=== PATIENT | male | born 1940 | race Asian ===

== ENCOUNTER → 2018-01-07 10:30 | Outpatient (CLI) | payer MEDICARE, SELFPAY | PROVIDERS: Family Provider Family Medicine; PCP Family Medicine; Referring Provider Family Medicine; Visit Provider Family Medicine | DX: R42 Dizziness and giddiness (principal); R00.1 Bradycardia, unspecified | CPT/HCPCS: 93225; 93226 ==

== ENCOUNTER → 2020-05-31 15:29 | Outpatient (CLI) | payer MEDICARE, SELFPAY ==
--- NOTE | 2020-05-31 15:34 | US_ITS ---
STUDY: SUPERFICIAL ULTRASOUND - RIGHT PAROTID GLAND REASON FOR EXAM: Male, 80 years old. MASS OF PAROTID GLAND -- LOCALIZED SWELLING,MASS,LUMP,NECK THE PATIENT AND DR CANNOT PALP THE MASS TECHNIQUE: A superficial ultrasound was performed with real-time and static carrion-scale imaging. COMPARISON: None. FINDINGS: Multiple longitudinal and transverse ultrasound images the right parotid gland demonstrate a 0.4 x 1.3 cm oval hypoechoic mass with some central increased echogenicity within the periphery of the parotid gland consistent with a normal lymph node. US/Head/Neck Soft Tissue IMPRESSION: Normal ultrasound of the right parotid gland with a normal lymph node. Electronically Signed: Lance Brasher MD at 8:17 EDT Tel , Service support ,
== END ==
PROVIDERS: PCP Family Medicine; Referring Provider Otolaryngology; Visit Provider Otolaryngology
DX: R22.1 Localized swelling, mass and lump, neck (principal)
CPT/HCPCS: 76536

== ENCOUNTER 2023-01-20 03:53 | Inpatient (IN) | payer MEDICARE, SELFPAY ==
[2023-01-20] VITALS (24 sets, daily range): BP systolic 90–200; BP diastolic 69–131; PULSE 91–152; RESP 12–35; TEMP 35.9–36.8; O2SAT 86–99; BMI 25.1
--- NOTE | 2023-01-20 04:03 | EKG12_ITS ---
Test Reason : DYSRHYTHMIA Blood Pressure : / mmHG Vent. Rate : 118 BPM Atrial Rate : 118 BPM P-R Int : 152 ms QRS Dur : 074 ms QT Int : 290 ms P-R-T Axes : 082 073 075 degrees QTc Int : 406 ms Sinus tachycardia Possible Left atrial enlargement Anteroseptal infarct , age undetermined Abnormal ECG Confirmed by DERREK RESENDIZ, DEBO ([id number]), editor greeting card MONSERRAT ALDANA ([id number]) on 01/23/2023 6:17:16 AM Referred By: JASON Confirmed By:TRISTAN ANGLIN MD
--- NOTE | 2023-01-20 04:13 | EDS_ITS ---
HPI History of Present Illness Chief Complaint: Shortness of Breath Narrative Narrative: 82-year-old male past medical history of dementia presents with his because of shortness of breath and just a little bit ago. They deny that he has had any fever or chills, no cough. He felt like he could not breathe. No chest pain or leg swelling. He reportedly has past medical history of COPD. However, he does not wear oxygen at home. Initially, they declined third-libertarian lang interpreter, but then were acceptable to it. Patient denies any significant past medical history except for hypothyroidism. They also removed tumors from his chest and were unsure if he had cancer. PFSH PFSH Allergy/AdvReac Type Severity Reaction Status Date / Time No Known Allergies Allergy Verified 01/20/23 04:28 Social History Smoking Status: Never smoker ROS ROS ED ROS Narrative Constitutional: No fever, no chills. HEENT: No sore throat. No neck pain. No loss of vision. No rhinorrhea. Cardiovascular: No chest pain. No palpitations. No pedal edema. Respiratory: No cough, positive shortness of breath. Abdominal: No abdominal pain. No nausea. No vomiting. Genitourinary: No dysuria. No hematuria. Musculoskeletal: No myalgias. No arthralgias. Neurologic: No headaches. No dizziness. No lightheadedness. Skin: No rash. No change in color. Psychiatric: No depression. No anxiety. EXAM Physical Exam Narrative Exam Narrative: Afebrile. Vital signs noted. HEENT: Normocephalic. Atraumatic. PERRL, EOMI. Neck soft and supple. No point tenderness or step off. Cardiovascular: Regular rate and rhythm. No murmurs, rubs, or gallops appreciated. Respiratory: No tachypnea. Lungs clear to auscultation bilaterally. Decreased breath sounds bilateral bases. Questionable rales bilateral bases. Gastrointestinal: Abdomen soft, nontender, with normoactive bowel sounds. No rebound or guarding. Neurological: Awake. Alert. Nonfocal, nonlateralizing. Skin: No rash. Normal color. No pallor. Musculoskeletal: No pedal edema. Full range of motion extremities. Const Vital Signs: 01/20/23 03:54 01/20/23 04:07 01/20/23 04:27 Temperature 98.1 F Temperature Source Temporal Pulse Rate 125 H 110 H Respiratory Rate 35 H 24 H Respiratory Effort Respiratory Depth Respiratory Pattern Blood Pressure 200/131 H 148/99 H Blood Pressure Mean 154 115 Pulse Ox 86 95 94 Oxygen Delivery Method Room Air Room Air Room Air 01/20/23 04:27 01/20/23 04:29 01/20/23 05:46 Temperature Temperature Source Pulse Rate 112 H 109 H Respiratory Rate 22 H 16 Respiratory Effort Short of Breath Labored Respiratory Depth Shallow Respiratory Pattern Tachypnea Tachypnea Blood Pressure 148/89 H Blood Pressure Mean 108 Pulse Ox 96 Oxygen Delivery Method Room Air MDM MDM MDM Narrative Medical decision making narrative: In the differential diagnosis is COPD exacerbation versus CHF versus combination of both. Also in the differential is pneumonia or pneumothorax, but the history and physical does not necessarily support these diagnoses. Patient has elevated blood pressure and is tachycardic. He may have a pulmonary embolism or hypertensive urgency. Initially, it was reported that he was 86% on room air. He was placed on 2 L nasal cannula oxygen by respiratory therapy. They state that he was satting 99%, so they turned off his oxygen to ensure that he was not hypoxic, and obtained a blood gas. EKG was obtained and interpreted by myself independently as sinus tachycardia 118 bpm without ectopy or acute ST changes. No STEMI. No reciprocal changes. Patient is agreed to third-libertarian lang interpreter. The speak Turkish. Through the third libertarian commercial litigation associate, they state that his shortness of breath has been ongoing for the last 3 hours. He denied any chest pain, nausea, vomiting, or diaphoresis associated with this. Upon repeat examination, he states he feels improved. His initial blood pressure was elevated, and I had ordered hydralazine, however his repeat blood pressure is considerably lower, in the 140s systolic so the hydralazine was held. I reviewed his laboratory work and WBC count is normal at 10 with hemoglobin slightly hemoconcentrated at 16.7, hematocrit 53. Platelet count normal at 182. His sodium is normal at 141 with potassium 3.6, chloride slightly elevated at 109. He has an elevated creatinine of 1.6 with a BUN of 13. There is no prior with which to compare. Of significance is his lactic acid which is elevated at 2.3 which may be secondary to mild dehydration. Additionally, his troponin is elevated at 204. While I am unsure if this is secondary to his elevated creatinine, given his shortness of breath, and a BNP slightly elevated at 105, he will be treated as an NSTEMI. I will repeat his troponin in 2 hours and he will be given aspirin and started on heparin including bolus. His D-dimer is still pending. His chest x-ray in 1 view shows subtle opacities bilaterally in the bases. I do not think this is really a pneumonia that requires antibiotics because he has not had fever or cough, he does not have a leukocytosis. He may be more subtle CHF. I will refrain from antibiotics. He did receive a DuoNeb aerosolized treatment. He is resting comfortably and his pulse ox on room air is 94%. I received a call from the laboratory and his D-dimer is elevated at 1.21. As this is above the age cutoff for this 82-year-old gentleman, CTA will be obtained for pulmonary embolism. He was already started on heparin. He may have right heart strain from a large PE causing a rise in his troponin as well. ABG was obtained and reviewed, he has a pH of 7.38 with a pCO2 of 42.6 and pO2 of 65.3. Once again, concern would be for pulmonary embolism. CTA of the chest will be obtained and report reviewed. In review of the CTA of the chest, there are large bilateral pleural effusions. I reviewed the radiology report and they also comment on mild bibasilar airspace disease which may be atelectasis versus infectious. There is no evidence of pulmonary embolism. Once again, is not showing any clinical signs of pneumonia. I will defer antibiotics to the inpatient team. Patient will be discussed with Dr. Zuniga for admission. He requested that I speak with cardiology. I had informed Dr. Davidson and with cardiology of the patient's need for admission, elevated troponin and creatinine. Patient is in stable condition. History & Record Review Discussion w/independent historian: Patient and Family () Additional record(s) reviewed:: No prior records Lab Data Attestation: I reviewed the patient's lab results. Labs: Laboratory Results - last 24 hr 01/20/23 01/20/23 01/20/23 04:01 04:10 04:43 WBC 10.0 RBC 5.54 Hgb 16.7 H Hct 53.0 MCV 95.7 H MCH 30.1 MCHC 31.5 L RDW Std Deviation 45.0 H RDW Coeff of Reece 12.9 Plt Count 182 MPV 11.1 Immature Gran % (Auto) 0.200 Neut % (Auto) 51.7 Lymph % (Auto) 31.6 [place] % (Auto) 8.8 Eos % (Auto) 7.1 H Baso % (Auto) 0.6 Absolute Neuts (auto) 5.2 Absolute Lymphs (auto) 3.15 Nucleated RBC % 0 PT 13.9 INR 1.1 APTT 31.3 D-Dimer Quant (PE/DVT) Cancelled 1.21 H* Sodium 141 Potassium 3.6 Chloride 109 H Carbon Dioxide 24.0 Anion Gap 8 BUN 13 Creatinine 1.60 H Estim Creat Clear Calc 26.54 Est GFR (MDRD) Af Amer 53 L Est GFR (MDRD) Non-Af 44 L BUN/Creatinine Ratio 8.1 L Glucose 129 H Lactic Acid 2.3 H* Calcium 8.2 L Troponin I High Sens 204 H* B-Natriuretic Peptide 105.9 H ABG Data ABG results: ABG 01/20/23 04:19 Specimen Type ART Sample Site R Radial pH 7.38 Bicarbonate Actual 25.2 Total CO2 27 Base Excess 0 O2 Saturation 92 L ABG pCO2 42.6 ABG pO2 65 L Abdi Test Positive O2 Delivery Device Room Air Vent Mode Not entered Radiography Diagnostic Testing: Clinical Impression(s) from Imaging Studies Chest X-Ray 01/20/23 04:20 IMPRESSION: Subtle heterogeneous opacities involving the lower lungs bilaterally. Correlate clinically to exclude infectious etiology. Electronically Signed: Leonel Beach MD at 5:03 EST , Chest CTA 01/20/23 05:37 IMPRESSION: 1. Large pleural effusions and mild bibasilar air space disease. Findings may indicate atelectasis or infection. 2. No evidence of pulmonary embolism. Electronically Signed: Gavin Hong MD at 6:08 EST , Management Discussion w/another healthcare provider: Hospitalist Discharge Plan Dx/Rx/DC Orders Clinical Impression: Acute kidney injury, Non-ST elevation AR (NSTEMI), Elevated d-dimer, Pleural effusion, bilateral, Lactic acidosis Disposition Disposition: Acute Care [facility]
--- NOTE | 2023-01-20 04:20 | RAD_ITS ---
EXAM: XR CHEST, 1 VIEW CLINICAL INDICATION: Shortness of breath TECHNIQUE: Frontal view of the chest. COMPARISON: No relevant prior studies available. FINDINGS: LUNGS AND PLEURAL SPACES: Subtle heterogeneous opacities involving the lower lungs bilaterally. Small pleural effusions versus pleural parenchymal scarring. No pneumothorax. HEART: CABG postoperative changes with intact sternotomy wires. No cardiomegaly. MEDIASTINUM: No mediastinal or hilar enlargement. BONES/JOINTS: Degenerative changes of the glenohumeral joints, acromioclavicular joints, and spine. SOFT TISSUES: Unremarkable. RAD/Chest 1 View (Portable) IMPRESSION: Subtle heterogeneous opacities involving the lower lungs bilaterally. Correlate clinically to exclude infectious etiology. Electronically Signed: Leonel Beach MD at 5:03 EST ,
[2023-01-20 04:23] LABS: Allen Test Positive; Base Excess 0 mmol/L (-2 to +2); Bicarbonate 25.2 mmol/L (22-26); Blood Gas Specimen Type ART; Mode Not entered; O2 Delivery Device Room Air; PO2 65 mmHG (75-100); SITE R Radial; SO2 92 % (95-99); Total Carbon Dioxide 27 mmol/L; pCO2 42.6 mmHg (35-45); pH 7.38 (7.35-7.45)
[2023-01-20 04:25] LABS: Absolute Lymphocyte Count 3.15 X10^3/uL (0.83-4.51); Absolute Neutrophil Count 5.2 X10^3/uL (2.0-7.7); Basophil# 0.06 X10^3/uL; Basophil% 0.6 % (0-1); Eosinophil# 0.71 X10^3/uL; Eosinophils% 7.1 % (0-5); Hemoglobin 16.7 g/dL (13.0-16.5); Lymphocyte # 3.15 X10^3/ul (0.83-4.51); Lymphocyte % 31.6 % (19-41); Mean Corp Hgb Conc 31.5 g/dL (32-36); Mean Corpuscular Hgb 30.1 pg (27.0-32.0); Mean Corpuscular Volume 95.7 fL (80-94); Mean Platelet Vol. 11.1 fl (6.2-12.0); Monocyte# 0.88 X10^3/uL; Monocyte% 8.8 % (0-10); NRBC Flagged by Analyzer 0 % (0-5); Neutrophil # 5.16 X10^3/uL (2.7-7.7); Neutrophil % 51.7 % (47-70); Platelet Count 182 K/mm3 (150-450); RBC Distribution Width CV 12.9 % (11.6-14.6); Red Blood Count 5.54 M/mm3 (4.6-6.2)
[2023-01-20] MEDS: Ipratropium/Albuterol Sulfate 3 ML AMPUL.NEB INHALATION (04:26)
[2023-01-20 04:55] LABS: Anion Gap 8 (5-15); BNP,B-Type NATRIURETIC PEPTIDE 105.9 pg/mL (0-100); BUN 13 mg/dL (7-18); BUN/Creat Ratio 8.1 RATIO (10-20); Calcium,Total 8.2 mg/dL (8.5-10.1); Chloride 109 mmol/L (98-107); EST Glomerular Filtration Rate 44 mL/min (>60); Est Glom Filt Rate - Afr Amer 53 mL/min (>60); Estimated Creatinine Clearance 26.54 ml/min; Glucose 129 mg/dL (74-106); Potassium 3.6 mmol/L (3.5-5.1); Sodium Level 141 mmol/L (136-145); Troponin-I HS 204 pg/mL (3.0-78.0)
[2023-01-20 04:55] LABS: Lactic Acid 2.3 mmol/L (0.4-1.9)
[2023-01-20] MEDS: Heparin Injection (Vial) 5,000 UNIT/ML VIAL 4000 UNIT IV (05:16)
[2023-01-20] MEDS: Aspirin 81 MG TAB.CHEW 324 MG PO (05:16)
[2023-01-20] MEDS: HEPARIN/D5w 25,000 UNITS 25,000 UNITS/250 ML IV.SOLN. 8 UNITS CONT INF (05:16)
[2023-01-20 05:18] LABS: D-Dimer Quantitative (DVT/PE) 1.21 FEU/ug/m (0.27-0.49)
[2023-01-20 05:20] LABS: International Normalized Ratio 1.1; Prothrombin Time (Protime)PT. 13.9 SECONDS (11.7-14.9)
[2023-01-20 05:21] LABS: Partial Thromboplast Time 31.3 Seconds (24.1-36.2)
--- NOTE | 2023-01-20 05:37 | CT_ITS ---
EXAM: CT ANGIOGRAPHY CHEST WITHOUT AND WITH INTRAVENOUS CONTRAST CLINICAL INDICATION: Elevated D-dimer TECHNIQUE: Helically acquired angiography images were obtained of the chest without and with intravenous contrast. This CT exam was performed using one or more of the following dose reduction techniques: automated exposure control, adjustment of the mA and/or kV according to patient size, and/or use of iterative reconstruction technique. MIP reconstructed images were created and reviewed. CONTRAST: IV 100mL [id number]-370 RADIATION DOSE: CTDIvol = 14.81 mGy, DLP = 386.65 mGy-cm COMPARISON: No relevant prior studies available. FINDINGS: PULMONARY ARTERIES: Unremarkable. Normal in caliber. No evidence of pulmonary embolism. AORTA: Unremarkable. No aortic aneurysm or dissection. GREAT VESSELS OF AORTIC ARCH: Unremarkable. Normal in caliber. No evidence of dissection. LUNGS AND PLEURAL SPACES: Large pleural effusions and mild bibasilar air space disease. No mass. HEART: Coronary artery calcifications. Heart size is normal. No pericardial effusion. MEDIASTINUM: Surgical changes of the mediastinum. No mediastinal or hilar adenopathy. Esophagus is unremarkable. No hiatal hernia. THYROID: Unremarkable. No thyroid lesions. BONES/JOINTS: Diffuse degenerative changes of the spine. No suspicious lytic or blastic abnormality. CT/CTA Chest W/WO Contrast IMPRESSION: 1. Large pleural effusions and mild bibasilar air space disease. Findings may indicate atelectasis or infection. 2. No evidence of pulmonary embolism. Electronically Signed: Gavin Hong MD at 6:08 EST ,
[2023-01-20] MEDS: 0.9% Normal Saline (1000mL) 1,000 ML 999 ML IV (05:45)
[2023-01-20] MEDS: Furosemide 40 MG/4 ML Vial IV (06:40)
--- NOTE | 2023-01-20 06:50 | RAD_ITS ---
EXAM: XR CHEST, 1 VIEW CLINICAL INDICATION: Acute SOB TECHNIQUE: Frontal view of the chest. COMPARISON: Single view chest 01/20/2023 FINDINGS: LUNGS AND PLEURAL SPACES: Mild bibasilar airspace disease and small pleural effusions. No pneumothorax. HEART: Unremarkable. Cardiac silhouette not enlarged. MEDIASTINUM: Surgical changes of the mediastinum. BONES/JOINTS: Degenerative changes of the spine and shoulders. No acute fracture. SOFT TISSUES: Unremarkable. RAD/Chest 1 View (Portable) IMPRESSION: Mild bibasilar airspace disease and small pleural effusions. Findings may indicate atelectasis or pneumonia. Electronically Signed: Gavin Hong MD at 0:25 EST ,
--- NOTE | 2023-01-20 06:53 | PCM.HP.STD ---
HPI - General General Date of Service: 01/20/23 HPI Narrative [place], is a 82 M who presents with acute onset shortness of breath for the last 3 hours, and had severely elevated blood pressure at the time of presentation. His systolic pressures were more than 200. Without treatment patient his blood pressure improved and there has been improvement in his shortness of breath with nebulization. CT scan showed bilateral pleural effusion. He is being admitted for further evaluation of the new onset pleural effusion and acute shortness of breath with suspected NSTEMI. His hemoglobin is 16.5, D-dimer is elevated 1.2, ABGs pO2 was 65, creatinine 1.6, lactic acid 2.3, troponin 204 acute onset shortness of breath Acute event in the ED He was started on 1 L normal saline bolus in the ED and during the infusion had a similar episode of worsening shortness of breath with acute desaturation bilateral Rales and crepitations. His blood pressure at the time was 180/110 mmHg. We started him on BiPAP respiration, gave IV Lasix and stop the infusions. With this his saturation has improved [facility] Medical History unable to obtain unable to obtain Allergy/AdvReac Type Severity Reaction Status Date / Time No Known Allergies Allergy Verified 01/20/23 04:28 Social History Smoking Status: Never smoker ROS Review of Systems ROS Unobtainable: other Details: Acute shortness of breath Vital Signs Vital Signs Vital Signs: 01/20/23 03:54 01/20/23 04:07 01/20/23 04:27 Temperature 98.1 F Temperature Source Temporal Pulse Rate 125 H 110 H Respiratory Rate 35 H 24 H Respiratory Effort Respiratory Depth Respiratory Pattern Blood Pressure 200/131 H 148/99 H Blood Pressure Mean 154 115 Pulse Ox 86 95 94 Oxygen Delivery Method Room Air Room Air Room Air 01/20/23 04:27 01/20/23 04:29 01/20/23 05:46 Temperature Temperature Source Pulse Rate 112 H 109 H Respiratory Rate 22 H 16 Respiratory Effort Short of Breath Labored Respiratory Depth Shallow Respiratory Pattern Tachypnea Tachypnea Blood Pressure 148/89 H Blood Pressure Mean 108 Pulse Ox 96 Oxygen Delivery Method Room Air Weight Weight: 137 lb 9.095 oz Body Mass Index (BMI) 25.1 Physical Exam Const General Appearance: cooperative HEENT normocephalic Resp Resp Narrative: Breathing was labored, loud audible Rales present Auscultation: crackles diffuse and rales diffuse Cardio Cardio Narrative: Tachycardia Extremity normal to inspection and no clubbing, cyanosis or edema Neuro oriented x3 Results Medical Records Data Attestation: I reviewed the patient's medical records Lab / Micro Data Attestation: I reviewed the patient's lab results. Lab results narrative: Features suspicious for chronic hypoxia/COPD with hemoglobin of 16.7, possible allergy with eosinophils of 7.1%. Reason for creatinine 1.6 is not known as BUN is not elevated, likely hypertensive etiology. Hemoglobin 16.7, WBC 10.0, with 7.1% eosinophils, creatinine 1.6 with BUN of 13, troponin high-sensitivity 204, NT proBNP 105.9, lactic acid 2.3, D-dimer 1.21 01/20/23 04:01 01/20/23 04:01 Labs: Laboratory Results - last 24 hr 01/20/23 04:01: WBC 10.0, RBC 5.54, Hgb 16.7 H, Hct 53.0, MCV 95.7 H, MCH 30.1, MCHC 31.5 L, RDW Std Deviation 45.0 H, RDW Coeff of Reece 12.9, Plt Count 182, MPV 11.1, Immature Gran % (Auto) 0.200, Neut % (Auto) 51.7, Lymph % (Auto) 31.6, [place] % (Auto) 8.8, Eos % (Auto) 7.1 H, Baso % (Auto) 0.6, Absolute Neuts (auto) 5.2, Absolute Lymphs (auto) 3.15, Nucleated RBC % 0, D-Dimer Quant (PE/DVT) Cancelled, Sodium 141, Potassium 3.6, Chloride 109 H, Carbon Dioxide 24.0, Anion Gap 8, BUN 13, Creatinine 1.60 H, Estim Creat Clear Calc 26.54, Est GFR (MDRD) Af Amer 53 L, Est GFR (MDRD) Non-Af 44 L, BUN/Creatinine Ratio 8.1 L, Glucose 129 H, Calcium 8.2 L, Troponin I High Sens 204 H*, B-Natriuretic Peptide 105.9 H 01/20/23 04:10: Lactic Acid 2.3 H* 01/20/23 04:43: PT 13.9, INR 1.1, APTT 31.3, D-Dimer Quant (PE/DVT) 1.21 H* Micro: Microbiology 01/20/23 04:00 Nasal Secretion SARS-CoV-2 & FLU Antigen (Rapid) - Final ABG Data ABG results: ABG 01/20/23 04:19 Specimen Type ART Sample Site R Radial pH 7.38 Bicarbonate Actual 25.2 Total CO2 27 Base Excess 0 O2 Saturation 92 L ABG pCO2 42.6 ABG pO2 65 L Abdi Test Positive O2 Delivery Device Room Air Vent Mode Not entered Imagaing Radiology Impression Chest X-Ray 01/20/23 04:20 IMPRESSION: Subtle heterogeneous opacities involving the lower lungs bilaterally. Correlate clinically to exclude infectious etiology. Electronically Signed: Leonel Beach MD at 5:03 EST , Chest CTA 01/20/23 05:37 IMPRESSION: 1. Large pleural effusions and mild bibasilar air space disease. Findings may indicate atelectasis or infection. 2. No evidence of pulmonary embolism. Electronically Signed: Gavin Hong MD at 6:08 EST , Assessment & Plan Assessment/Plan (1) Non-ST elevation [place] (NSTEMI): PLAN: Plan 1. Acute on chronic respiratory failure: Presentation consistent with hypertensive emergency with presenting blood pressures of systolics greater than 200 and episodes consistent with flash pulmonary edema. The decompensation episode in the ED responded to by PAP and Lasix therapy. Possibly there is underlying hypertensive heart disease now presenting with ADHF also leading to the pleural effusion seen on CT scan 2. NSTEMI: Elevated troponin levels could be due to hypertensive emergency, no chest pain but the presentation with flash pulmonary edema could be an anginal equivalent. Cardiology has been informed about this patient and will see him today. 3. ADAN on CKD: Possibly hypertensive nephrosclerosis, BUN is not elevated, less likely to be related to prerenal-ADAN. Would avoid further fluid therapy without proper monitoring given his recent episode of decompensation in the ED.
--- NOTE | 2023-01-20 07:20 | CPS ---
ED RN called this RT stating pt wanted the bipap off. Rn took bipap off at this time
--- NOTE | 2023-01-20 08:13 | ECHOCS_ITS ---
Reason For Study: Dyspnea/SOB Procedure This was a 2D Doppler, Color Flow transthoracic echocardiogram. Contrast injection was performed. Exam performed portable in ICU/CCU. Left Ventricle Mildly dilated left ventricle. Severe LV systolic dysfunction with apical akinesis, mid to distal anterior and anterior septal akinesis. Mid to distal inferior septal akinesis. Basal anterior severely hypokinetic. Estimated EF 20%. Stage 1 diastolic dysfunction. Right Ventricle Normal right ventricle. Atria The left and right atria are normal. Mitral Valve Mild (1+) mitral valve insufficiency. Tricuspid Valve Trivial tricuspid valve insufficiency. Normal pulmonary artery pressure. Aortic Valve Trisinus/trileaflet aortic valve. Mild (1+) aortic valve insufficiency. Pulmonic Valve The pulmonic valve is not well visualized. Great Vessels Normal sized aortic root. Pericardium/Pleural Trivial pericardial effusion. Moderate size left pleural effusion. Medication Diluted definity 2ml given slow IV push to enhance endocardial definition. MMode/2D Measurements & Calculations LVIDd: 5.8 cm IVSd: 0.85 cm Ao root diam: 2.6 cm LVIDs: 4.0 cm LVPWd: 0.75 cm RVDd: 2.9 cm FS: 31.2 % LAV(MOD-bp): 24.1 ml LVAd ap4: 24.5 cm2 SV(MOD-sp4): 14.1 ml LAV(MOD-bp) Indexed: 14.8 ml/m2 LVLd ap4: 7.2 cm LAV(MOD-sp2): 22.8 ml EDV(MOD-sp4): 68.0 ml LAV(MOD-sp4): 23.5 ml EDV(sp4-el): 70.9 ml LVAs ap4: 21.4 cm2 LVLs ap4: 6.8 cm ESV(MOD-sp4): 53.9 ml ESV(sp4-el): 57.0 ml EF(MOD-sp4): 20.7 % EF(sp4-el): 19.6 % SV(sp4-el): 13.9 ml LA A4 area: 11.8 cm2 LA dimension(2D): 2.9 cm RA A4 area: 7.4 cm2 TAPSE: 1.5 cm Time Measurements MV dec time: 0.20 sec Doppler Measurements & Calculations MV E max ariel: 65.2 cm/sec Lat Peak E' Ariel: 4.5 cm/sec Med Peak E' Ariel: 5.6 cm/sec MV A max ariel: 84.1 cm/sec E/E' lat: 14.6 E/E' med: 11.6 MV E/A: 0.78 MV dec slope: 326.2 cm/sec2 Ao V2 max: 109.9 cm/sec LV V1 max: 86.7 cm/sec Ao max P.8 mmHg LV V1 max P.0 mmHg Ao V2 mean: 78.5 cm/sec LV V1 mean P.7 mmHg Ao mean P.8 mmHg LV V1 mean: 59.6 cm/sec Ao V2 VTI: 20.3 cm LV V1 VTI: 15.5 cm AV (velocity ratio): 0.76 PA V2 max: 92.1 cm/sec TR max ariel: 232.2 cm/sec TR max P.6 mmHg ECHO/Echo Complete W/ Contrast Interpretation Summary Mildly dilated left ventricle. Stage 1 diastolic dysfunction. Severe LV systolic dysfunction with apical akinesis, mid to distal anterior and anterior septal akinesis. Mid to distal inferior septal akinesis. Basal anterior severely hypok inetic. Estimated EF 20-25%. Mild (1+) mitral valve insufficiency. Mild (1+) aortic valve insufficiency. Ordering Physician: Serg Bazzi Referring Physician: Mo Lozano Performed By: Sandra Duarte, PATRICIA, RVT
[2023-01-20 08:20] LABS: Reflex Lactate? Y
[2023-01-20 08:51] LABS: Troponin-I HS 209 pg/mL (3.0-78.0)
[2023-01-20 09:40] LABS: Lactic Acid 3.5 mmol/L (0.4-1.9)
[2023-01-20 12:34] LABS: M R Staph aureus DNA By PCR Negative (Negative); Probe Check PASS; Specimen Processing Control PASS
[2023-01-20 13:06] LABS: Partial Thromboplast Time 124.1 Seconds (24.1-36.2)
--- NOTE | 2023-01-20 13:25 | CASEMGMT ---
KIMMY CARBALLO Assessment: Face to Face with pt for initial transition planning/care coordination assessment. KIMMY CARBALLO introduced self and role at [facility], pt voices understanding and consents to assessment. Pt is A&O x4 and answers all questions appropriately at this time. Pt speakes Bur[place]ian and multiple family members present during assessment. Care providers, pharmacy, and demographics verified/updated. Admitting Dx:hypertensive emergency PCP:[facility]: Denies Preferred Pharmacy:[facility] Insurance:[facility] [place][NOTE 2] Prescription Benefit: yes LNOK:Marco A Dunne, ; Bairon Dickson, dil Living Arrangements: Pt lives with in a mobile home with 4-5 steps to enter with a rail. Pt reports he is I in ADL's and IADL's. Pt denies concerns at home. Transportation: Pt drives self and denies concerns with transportation. DME:Denies HHC/SNF:Denies hx of Pt states no concerns with going home at time of dc. Pt states no further concerns/needs. CM to follow. Therapy to eval. Advised pt to ask CM if any further question/concerns/needs arise, voices understanding. Pt Goal:Home Plan:Home, family present agreeable with plan stating that KENNEDY is a nurse. Declines need for any nursing in the home.
[2023-01-20 13:29] LABS: Troponin-I HS 315 pg/mL (3.0-78.0)
[2023-01-20 13:46] LABS: T4 Total, Thyroxin 11.6 ug/dL (4.5-12.1); Thyroid Stim Hormone (TSH) 1.62 uIU/mL (0.358-3.74)
[2023-01-20] MEDS: Furosemide 20 MG/2 ML VIAL IV (16:48)
[2023-01-20] MEDS: Potassium Chloride Oral Tablet 20 MEQ PO (16:48)
--- NOTE | 2023-01-20 17:15 | EKG12_ITS ---
Test Reason : Blood Pressure : / mmHG Vent. Rate : 150 BPM Atrial Rate : 000 BPM P-R Int : 000 ms QRS Dur : 098 ms QT Int : 290 ms P-R-T Axes : 000 054 048 degrees QTc Int : 458 ms Critical Test Result: High HR Atrial fibrillation with rapid ventricular response Anterolateral infarct , age undetermined Abnormal ECG When compared with ECG of 20-JAN-2023 04:02, MANUAL COMPARISON REQUIRED, DATA IS UNCONFIRMED Confirmed by DERREK RESENDIZ, DEBO ([id number]), news assignment editor MCKINLEY DOUGHERTY ([id number]) on 01/23/2023 8:48:56 A M Referred By: NANCY Confirmed By:TRISTAN ANGLIN MD
--- NOTE | 2023-01-20 17:19 | PN.HOSP_ITS ---
Hospitalist Note Probably went into atrial fibs tonight while eating dinner, he is asymptomatic, his rate is between 115 160, there is no signs of acute ischemia on his EKG, I talked briefly with Dr. Posey about this, patient will be placed on a beta- pelon, I will give a dose of IV dig, and he will be placed on subcu Lovenox. I talked to his daughters who are in the room at the time of my exam this afternoon and let them know about his echocardiogram results and the need for a heart cath on Sunday. Patient does want to be a full code.
[2023-01-20] MEDS: Digoxin 250 MCG/ML Ampul 500 MCG IV (17:39)
[2023-01-20] MEDS: Carvedilol 6.25 MG Tablet PO ×2 (17:40→18:42)
[2023-01-20] MEDS: Pantoprazole Sodium 40 MG Tablet PO (17:40)
[2023-01-20] MEDS: Enoxaparin 60 MG/0.6 ML Syringe SC (18:04)
[2023-01-20 18:48] LABS: Anion Gap 5 (5-15); BUN 14 mg/dL (7-18); BUN/Creat Ratio 8.5 RATIO (10-20); Calcium,Total 8.7 mg/dL (8.5-10.1); Chloride 104 mmol/L (98-107); Creatinine, Serum 1.65 mg/dL (0.70-1.30); EST Glomerular Filtration Rate 42 mL/min (>60); Est Glom Filt Rate - Afr Amer 51 mL/min (>60); Estimated Creatinine Clearance 25.74 ml/min; Glucose 138 mg/dL (74-106); Magnesium 2.3 mg/dL (1.6-2.6); Sodium Level 138 mmol/L (136-145)
[2023-01-21] VITALS (27 sets, daily range): BP systolic 77–136; BP diastolic 56–94; PULSE 61–122; RESP 14–22; TEMP 36.1–36.9; O2SAT 91–100; BMI 23.7
[2023-01-21 04:56] LABS: Absolute Lymphocyte Count 0.98 X10^3/uL (0.83-4.51); Absolute Neutrophil Count 5.5 X10^3/uL (2.0-7.7); Basophil# 0.03 X10^3/uL; Basophil% 0.4 % (0-1); Eosinophil# 0.14 X10^3/uL; Eosinophils% 1.9 % (0-5); Hematocrit 50.7 % (40-54); Hemoglobin 17.1 g/dL (13.0-16.5); Lymphocyte # 0.98 X10^3/ul (0.83-4.51); Lymphocyte % 13.4 % (19-41); Mean Corp Hgb Conc 33.7 g/dL (32-36); Mean Corpuscular Hgb 29.6 pg (27.0-32.0); Mean Corpuscular Volume 87.9 fL (80-94); Mean Platelet Vol. 11.3 fl (6.2-12.0); Monocyte# 0.61 X10^3/uL; Monocyte% 8.3 % (0-10); NRBC Flagged by Analyzer 0 % (0-5); Neutrophil # 5.54 X10^3/uL (2.7-7.7); Neutrophil % 75.6 % (47-70); Platelet Count 172 K/mm3 (150-450); RBC Distribution Width CV 12.9 % (11.6-14.6); RBC Distribution Width SD 41.1 fl (35.1-43.9); Red Blood Count 5.77 M/mm3 (4.6-6.2); White Blood Count 7.3 K/mm3 (4.4-11.0)
[2023-01-21 05:00] LABS: International Normalized Ratio 1.1; Prothrombin Time (Protime)PT. 13.9 SECONDS (11.7-14.9)
--- NOTE | 2023-01-21 05:05 | NURSING ---
Dean noted to only drain 50 cc this am. Upon assessment, bedding and gown soaked with urine. Dean dc'ed. Small clot noted on tip of dean cath upon removal.
[2023-01-21 05:19] LABS: ALB/GLOB Ratio 0.8 RATIO (0.9-2.4); AST(SGOT) 36 U/L (15-37); Alanine Aminotransfer ALT/SGPT 20 U/L (16-61); Albumin, Serum 3.5 g/dL (3.2-5.0); Alkaline Phosphatase 105 U/L (45-117); Anion Gap 8 (5-15); BUN 18 mg/dL (7-18); BUN/Creat Ratio 10.2 RATIO (10-20); Bilirubin, Direct 0.29 mg/dL (0.00-0.30); Calcium,Total 8.3 mg/dL (8.5-10.1); Chloride 105 mmol/L (98-107); Creatinine, Serum 1.77 mg/dL (0.70-1.30); EST Glomerular Filtration Rate 39 mL/min (>60); Est Glom Filt Rate - Afr Amer 47 mL/min (>60); Estimated Creatinine Clearance 23.99 ml/min; Globulin 4.2 g/dL (2.2-4.2); Glucose 122 mg/dL (74-106); Magnesium 2.3 mg/dL (1.6-2.6); Phosphorus 3.2 mg/dL (2.5-4.9); Potassium 4.7 mmol/L (3.5-5.1); Protein, Total 7.7 g/dL (6.4-8.2); Sodium Level 139 mmol/L (136-145); Thyroid Stim Hormone (TSH) 2.35 uIU/mL (0.358-3.74)
[2023-01-21] MEDS: Enoxaparin 60 MG/0.6 ML Syringe SC (08:02)
[2023-01-21] MEDS: Pantoprazole Sodium 40 MG Tablet PO (08:02)
[2023-01-21] MEDS: Furosemide 20 MG/2 ML VIAL IV (08:02)
[2023-01-21] MEDS: Potassium Chloride Oral Tablet 20 MEQ PO ×2 (08:03→16:38)
[2023-01-21] MEDS: Carvedilol 12.5 MG Tablet PO (08:05)
--- NOTE | 2023-01-21 08:42 | PCM.PN.HOSP ---
Reason for Visit Reason for Visit: Diagnoses Non-ST elevation (NSTEMI) myocardial infarction (01/20/23) Subjective Subjective And examined today, he remains in atrial fibrillation with a rate between 110 and 120. I talked briefly with cardiology and they recommended using amiodarone, I wrote for a bolus and a drip. Patient is asymptomatic with his atrial fibs, patient's lab this morning showed a slight increase in his creatinine at 1.77. Objective Data Objective Data Vital Signs: Vital Signs Temp Pulse Resp BP Pulse Ox O2 Del Method FiO2 96.9 F L 122 H 20 H 108/68 94 Room Air 30 01/21/23 08:00 01/21/23 08:00 01/21/23 08:00 01/21/23 08:00 01/21/23 08:00 01/21/23 08:16 01/20/23 06:40 Oxygen Delivery Method Room Air Weight: 58.9 kg Body Mass Index (BMI) 23.7 Intake & Output: Intake and Output for Last 24 Hours 01/19/23 01/20/23 01/21/23 23:59 23:59 23:59 Intake Total 1538.60 / 1538.60 Output Total 2550 / 2550 100 / 100 Balance -1011.40 / -1011.40 -100 / -100 Lab / Micro Data 01/21/23 04:40 01/21/23 04:40 Labs: Laboratory Results - last 24 hr 01/20/23 07:40: Troponin I High Sens 209 H* 01/20/23 08:52: Lactic Acid 3.5 H* 01/20/23 10:15: MRSA (PCR) Negative 01/20/23 12:46: APTT 124.1 H*, Troponin I High Sens 315 H*, TSH 1.62, Thyroxine (T4) 11.6 01/20/23 17:53: Sodium Cancelled, Potassium Cancelled, Chloride Cancelled, Carbon Dioxide Cancelled, Anion Gap Cancelled, BUN Cancelled, Creatinine Cancelled, Estim Creat Clear Calc Cancelled, Est GFR (MDRD) Af Amer Cancelled, Est GFR (MDRD) Non-Af Cancelled, BUN/Creatinine Ratio Cancelled, Glucose Cancelled, Calcium Cancelled, Magnesium Cancelled 01/20/23 18:25: Sodium 138, Potassium 4.0, Chloride 104, Carbon Dioxide 29.0, Anion Gap 5, BUN 14, Creatinine 1.65 H, Estim Creat Clear Calc 25.74, Est GFR (MDRD) Af Amer 51 L, Est GFR (MDRD) Non-Af 42 L, BUN/Creatinine Ratio 8.5 L, Glucose 138 H, Calcium 8.7, Magnesium 2.3 01/21/23 04:40: WBC 7.3, RBC 5.77, Hgb 17.1 H, Hct 50.7, MCV 87.9 D, MCH 29.6, MCHC 33.7 D, RDW Std Deviation 41.1, RDW Coeff of Reece 12.9, Plt Count 172, MPV 11.3, Immature Gran % (Auto) 0.400, Neut % (Auto) 75.6 H, Lymph % (Auto) 13.4 L, [place] % (Auto) 8.3, Eos % (Auto) 1.9, Baso % (Auto) 0.4, Absolute Neuts (auto) 5.5, Absolute Lymphs (auto) 0.98, Nucleated RBC % 0, PT 13.9, INR 1.1, Sodium 139, Potassium 4.7, Chloride 105, Carbon Dioxide 26.0, Anion Gap 8, BUN 18, Creatinine 1.77 H, Estim Creat Clear Calc 23.99, Est GFR (MDRD) Af Amer 47 L, Est GFR (MDRD) Non-Af 39 L, BUN/Creatinine Ratio 10.2, Glucose 122 H, Calcium 8.3 L, Phosphorus 3.2, Magnesium 2.3, Total Bilirubin 2.60 H, Direct Bilirubin 0.29, AST 36, ALT 20, Alkaline Phosphatase 105, Total Protein 7.7, Albumin 3.5, Globulin 4.2, Albumin/Globulin Ratio 0.8 L, TSH 2.35 Micro: Microbiology 01/20/23 04:00 Nasal Secretion SARS-CoV-2 & FLU Antigen (Rapid) - Final Radiography Diagnostic Testing: Radiology Impression Chest X-Ray 01/20/23 06:50 IMPRESSION: Mild bibasilar airspace disease and small pleural effusions. Findings may indicate atelectasis or pneumonia. Electronically Signed: Gavin Hong MD at 0:25 EST , Echocardiogram 01/20/23 08:13 Interpretation Summary Mildly dilated left ventricle. Stage 1 diastolic dysfunction. Severe LV systolic dysfunction with apical akinesis, mid to distal anterior and anterior septal akinesis. Mid to distal inferior septal akinesis. Basal anterior severely hypokinetic. Estimated EF 20-25%. Mild (1+) mitral valve insufficiency. Mild (1+) aortic valve insufficiency. Ordering Physician: Serg Bazzi Referring Physician: Mo Lozano Performed By: Sandra Duarte, PATRICIA, RVT Physical Exam Const alert, no apparent distress and healthy appearing Constitutional Narrative: Patient appears younger than his stated age General Appearance: cooperative, well kempt and well developed Orientation / Consciousness: awake, oriented to person and oriented to place HEENT normocephalic, head/scalp atraumatic and moist oral mucous membranes Eyes PERRL, EOMs intact bilaterally and conjunctivae normal Neck supple, no JVD, thyroid normal and no carotid bruits General: trachea midline Resp normal respiratory effort, no retractions, no use of accessory muscles and clear to auscultation bilaterally Auscultation: Negative for rales, rhonchi or wheezes Cardio S1 normal heart sound, S2 normal heart sound, no murmurs, no rub and no gallops Cardio Narrative: Heart rate and rhythm is irregular GI normal to inspection, nondistended, normoactive bowel sounds, soft to palpation, non-tender and non-distended Extremity no clubbing, cyanosis or edema Skin no rashes or lesions noted General Skin Exam: no breakdown Neuro CN's II-XII intact bilaterally, moves all extremities, no focal motor deficits and no sensory deficits noted Sensorium / Orientation: awake, alert, oriented to person and oriented to place Speech: speech normal Psych affect normal Assessment & Plan Assessment/Plan (1) Non-ST elevation UT (NSTEMI): PLAN: Plan 1. Non-ST elevation UT-patient remains on a beta-pelon at this time and full anticoagulation due to his atrial fibrillation, patient's thyroid studies were normal, I will order lipid profile and placed the patient on atorvastatin and a baby aspirin daily. Patient will be seen in consultation by cardiology today #2 new onset atrial fibrillation-again patient will be placed on amiodarone drip, he will remain on a beta-pelon #3 cardiomyopathy-type unclear, patient will need a cardiac catheterization, I talked at length with the patient's daughters about this yesterday #4 mild cognitive impairment-patient's daughter states that the patient sometimes is confused, there is been no confirmed diagnosis of dementia however. #5 increased bilirubin-etiology unclear, possibly due to passive liver congestion, lipid profile will be repeated tomorrow Total clinical time spent by myself addressing the patient's medical issues, reviewing all of his data, and collaborating with patient's care team: 35 minutes Charges/Coding Visit Charges Inpatient E&M: 99944 Subs Hosp L2
[2023-01-21] MEDS: Amiodarone 150 MG in Dextrose 5%-Water (100mL Bag) 100 ML 600 MG IV BOLUS (09:25)
[2023-01-21 09:32] LABS: Cholesterol 160 mg/dL (200); High Density Lipoprotein 53 mg/dL; Triglycerides 96 mg/dL; Very Low Density Lipoprotein 19 mg/dL (5-40)
[2023-01-21] MEDS: Aspirin E.C. 81 MG Tablet PO (09:34)
[2023-01-21] MEDS: Amiodarone 360 MG in Dextrose 5% Viaflo Bag 192.8 ML 33.3 MG CONT INF (10:10)
--- NOTE | 2023-01-21 10:42 | CON.PCM.CA_ITS ---
Assessment & Plan Assessment/Plan (1) Dyspnea: PLAN: Secondary to severe LV systolic dysfunction and congestive heart failure. Improved with diuresis. Continue. Monitor creatinine. Continue beta-blockers. Will add angiotensin receptor pelon or HEIKE inhibitor when renal function stable. Start on SGLT2 inhibitor. (2) Coronary artery disease: PLAN: Coronary artery calcifications noted on chest CT. Continue aspirin. ECG and echo evidence point towards old anterior myocardial infarction. Troponin is mildly elevated during this admission. Likely secondary to demand issue on top of his CAD. Recommend coronary angiography at some point in time. However will wait for the renal function to stabilize first. (3) Congestive heart failure with left ventricular systolic dysfunction (LVSD): PLAN: Beta-blockers. HEIKE inhibitors when renal function stable. SGLT2 inhibitors. Start Aldactone. (4) Atrial fibrillation: PLAN: Continue heparin. Amiodarone. (5) Acute kidney injury: PLAN: Monitor creatinine. HPI Consult Data Date of Consult: 01/21/23 HPI Narrative Reason for Consultation: Elevated troponin HPI Narrative: This gentleman has no significant past medical history. Also on no medications at home. He presented to the emergency room with complaints of shortness of breath. According to him, he has been getting progressively short of breath o ebony the last 2 to 3 weeks. Positive paroxysmal nocturnal dyspnea. Denies orthopnea. No ankle edema. According to him, he gets anterior chest pressure lasting few minutes. He describes an episode of severe chest discomfort about a month ago. Patient was noted to have elevated troponin. An echocardiogram was done. It showed ejection fraction of approximately 20%. Wall motion changes consistent with old anterior myocardial infarction are noted. [facility] Medical History unable to obtain Home Medications NK 01/20/23 [History Last Taken Unknown] Allergy/AdvReac Type Severity Reaction Status Date / Time No Known Allergies Allergy Verified 01/20/23 04:28 Social History Smoking Status: Never smoker Physical Exam Narrative Comfortable. No apparent distress. Heart sounds 1 and 2 are noted. Irregularly irregular. Chest examination shows decreased breath sounds at bases. Abdomen soft. Alert oriented x 3. No ankle edema. Risk Stratification Risk Stratification Applicable: No Objective Data Vital Signs: Vital Signs Temp Pulse Resp BP Pulse Ox O2 Del Method FiO2 96.9 F L 79 20 H 80/61 L 94 Room Air 30 01/21/23 08:00 01/21/23 10:15 01/21/23 10:00 01/21/23 10:15 01/21/23 10:00 01/21/23 10:00 01/20/23 06:40 Oxygen Delivery Method Room Air Weight: 129 lb 13.636 oz Body Mass Index (BMI) 23.7 Intake & Output: Intake and Output for Last 24 Hours 01/19/23 01/20/23 01/21/23 23:59 23:59 23:59 Intake Total 1538.60 / 1538.60 105.77 / 105.77 Output Total 2550 / 2550 100 / 100 Balance -1011.40 / -1011.40 5.77 / 5.77 Lab / Micro Data 01/21/23 04:40 01/21/23 04:40 Labs: Laboratory Results - last 24 hr 01/20/23 10:15: MRSA (PCR) Negative 01/20/23 12:46: APTT 124.1 H*, Troponin I High Sens 315 H*, TSH 1.62, Thyroxine (T4) 11.6 01/20/23 17:53: Sodium Cancelled, Potassium Cancelled, Chloride Cancelled, Carbon Dioxide Cancelled, Anion Gap Cancelled, BUN Cancelled, Creatinine Cancelled, Estim Creat Clear Calc Cancelled, Est GFR (MDRD) Af Amer Cancelled, Est GFR (MDRD) Non-Af Cancelled, BUN/Creatinine Ratio Cancelled, Glucose Cancelled, Calcium Cancelled, Magnesium Cancelled 01/20/23 18:25: Sodium 138, Potassium 4.0, Chloride 104, Carbon Dioxide 29.0, Anion Gap 5, BUN 14, Creatinine 1.65 H, Estim Creat Clear Calc 25.74, Est GFR (MDRD) Af Amer 51 L, Est GFR (MDRD) Non-Af 42 L, BUN/Creatinine Ratio 8.5 L, Glucose 138 H, Calcium 8.7, Magnesium 2.3 01/21/23 04:40: WBC 7.3, RBC 5.77, Hgb 17.1 H, Hct 50.7, MCV 87.9 D, MCH 29.6, MCHC 33.7 D, RDW Std Deviation 41.1, RDW Coeff of Reece 12.9, Plt Count 172, MPV 11.3, Immature Gran % (Auto) 0.400, Neut % (Auto) 75.6 H, Lymph % (Auto) 13.4 L, [place] % (Auto) 8.3, Eos % (Auto) 1.9, Baso % (Auto) 0.4, Absolute Neuts (auto) 5.5, Absolute Lymphs (auto) 0.98, Nucleated RBC % 0, PT 13.9, INR 1.1, Sodium 139, Potassium 4.7, Chloride 105, Carbon Dioxide 26.0, Anion Gap 8, BUN 18, Creatinine 1.77 H, Estim Creat Clear Calc 23.99, Est GFR (MDRD) Af Amer 47 L, Est GFR (MDRD) Non-Af 39 L, BUN/Creatinine Ratio 10.2, Glucose 122 H, Calcium 8.3 L, Phosphorus 3.2, Magnesium 2.3, Total Bilirubin 2.60 H, Direct Bilirubin 0.29, AST 36, ALT 20, Alkaline Phosphatase 105, Total Protein 7.7, Albumin 3.5, Globulin 4.2, Albumin/Globulin Ratio 0.8 L, Triglycerides 96, Cholesterol 160, LDL Cholesterol 88, VLDL Cholesterol 19, HDL Cholesterol 53, TSH 2.35 Rhythm Strip Rhythm Strip: A-fib Cardiology Labs/Tests 01/20/23 12:46: APTT 124.1 H* 01/20/23 17:53: Sodium Cancelled, Potassium Cancelled, Chloride Cancelled, Carbon Dioxide Cancelled, Anion Gap Cancelled, BUN Cancelled, Creatinine Cancelled, Est GFR (MDRD) Af Amer Cancelled, Est GFR (MDRD) Non-Af Cancelled, BUN/Creatinine Ratio Cancelled, Glucose Cancelled, Calcium Cancelled, Magnesium Cancelled 01/20/23 18:25: Sodium 138, Potassium 4.0, Chloride 104, Carbon Dioxide 29.0, Anion Gap 5, BUN 14, Creatinine 1.65 H, Est GFR (MDRD) Af Amer 51 L, Est GFR (MDRD) Non-Af 42 L, BUN/Creatinine Ratio 8.5 L, Glucose 138 H, Calcium 8.7, Magnesium 2.3 01/21/23 04:40: WBC 7.3, RBC 5.77, Hgb 17.1 H, Hct 50.7, MCV 87.9 D, MCH 29.6, MCHC 33.7 D, Plt Count 172, MPV 11.3, Immature Gran % (Auto) 0.400, Neut % (Auto) 75.6 H, Lymph % (Auto) 13.4 L, [place] % (Auto) 8.3, Eos % (Auto) 1.9, Baso % (Auto) 0.4, Absolute Neuts (auto) 5.5, Nucleated RBC % 0, PT 13.9, INR 1.1, Sodium 139, Potassium 4.7, Chloride 105, Carbon Dioxide 26.0, Anion Gap 8, BUN 18, Creatinine 1.77 H, Est GFR (MDRD) Af Amer 47 L, Est GFR (MDRD) Non-Af 39 L, BUN/Creatinine Ratio 10.2, Glucose 122 H, Calcium 8.3 L, Phosphorus 3.2, Magnesium 2.3, Total Bilirubin 2.60 H, Direct Bilirubin 0.29, Triglycerides 96, Cholesterol 160, LDL Cholesterol 88, VLDL Cholesterol 19, HDL Cholesterol 53 Rhythm: EKG: Admission ECG showed sinus tachycardia with old anterior myocardial infarction. Presently atrial fibrillation. ECHO: Echo findings noted. Severe LV systolic dysfunction. Stress Test: Cardiac Cath: PCI: CT Surgery: Holter monitor: EPS: PPM: CXR: Chest CT Scan: Radiography Diagnostic Testing: Radiology Impression Chest X-Ray 01/20/23 06:50 IMPRESSION: Mild bibasilar airspace disease and small pleural effusions. Findings may indicate atelectasis or pneumonia. Electronically Signed: Gavin Hong MD at 0:25 EST , Echocardiogram 01/20/23 08:13 Interpretation Summary Mildly dilated left ventricle. Stage 1 diastolic dysfunction. Severe LV systolic dysfunction with apical akinesis, mid to distal anterior and anterior septal akinesis. Mid to distal inferior septal akinesis. Basal anterior severely hypokinetic. Estimated EF 20-25%. Mild (1+) mitral valve insufficiency. Mild (1+) aortic valve insufficiency. Ordering Physician: Serg Bazzi Referring Physician: Mo Lozano Performed By: Sandra Duarte RDCS, RVT
[2023-01-21] MEDS: Empagliflozin 10 MG Tablet PO (11:52)
[2023-01-21] MEDS: Amiodarone 360 MG in Dextrose 5% Viaflo Bag 192.8 ML 16.7 MG CONT INF (16:38)
[2023-01-21] MEDS: Carvedilol 3.125 MG TABLET PO (21:20)
[2023-01-22] VITALS (16 sets, daily range): BP systolic 85–147; BP diastolic 61–92; PULSE 55–68; RESP 13–25; TEMP 36–37.1; O2SAT 90–98; BMI 24.3
--- NOTE | 2023-01-22 | IMM_PTH ---
PATIENT: [place] [facility] LOC: ICU U#:[id number] AGE/SX: 82/M ROOM: [place] [address] RE01/20/[address]: Dr. Faith Mario DO : 1940 BED: 1 DIS: 01/24/2023 SPEC #: [id number] RECD: 01/23/23 11:10 STATUS: CAREY REQ #: [id number] JUDAH: 01/22/23 00:[address]: Faith Mario DEPT: IMMUNOHISTOCHEMISTRY RECD BY: Tova Peoples ENTERED: 01/23/23 11:13 SP TYPE: IMMUNO OTHR DR: MD Dr. Chi Acharya MD Dr. Jayaprakas Dasari, MD Dr. Mark Tereletsky, DO Dr. William Lago, MD Tissues: THORACIC FLUID Procedures: RCC (add) NAPSIN A (add) Jacek Ret (add) CK20 (add) CK5-6 (add) CK7 (add) CK8 (add) HEP PAR (add) TTF1 (add) Vimentin (add) Pankeratin (initial) P40 (add) PSAP (add) CD68 (ADD) PHYSICIAN & [place] [id number] SPECIMEN INFORMATION: Tissue Source: Thoracentesis fluid Clinical Info: Pleural effusion Specimen Number: [id number] CPT code: 23023, 18411 x13 METHODOLOGY: Deparaffinized sections of prefer/formalin-fixed tissue or PAP/DQ stained slides are incubated with monoclonal/polyclonal antibodies/oligonucleotide probes. Localization is made via biotin free immunoperoxidase method. Appropriate controls are performed and reacted as expected. Results on target cell population are indicated in the following table: RESULTS: ANTIBODY / CLONE RESULT AE1-3 (AE1/AE3/PCK26) negative * CK7 (OV-TL12/30) negative * CK8 (47rtziH09) negative * CK20 (KS20.8) negative * Vimentin (V9) negative * CD68 (KP-1) negative (positive in macrophages) TTF-1 (8G7G3/1) negative Napsin A (Rabbit Polyclonal) negative HepPar (OCh1E5) negative RCC (PN-15) negative PSAP (PASE/4LJ) negative CALRET (polyclonal) negative * CK5-6 (D5 & 1684) negative * P40 (BC28) negative *?Positive in mesothelial cells. These tests were developed and their performance characteristics determined by [facility]. They may not have been cleared or approved by the U.S. Food and Drug Administration. The FDA has determined that such clearance or approval is not necessary. The above immunohistochemical/dualISH markers are ordered and reviewed by the Pathologist. INTERPRETATION: Thoracentesis fluid (cell block): Negative for malignant cells. SJ:kwesi 01/24/2023
[2023-01-22 04:07] LABS: Anion Gap 8 (5-15); BUN 29 mg/dL (7-18); BUN/Creat Ratio 13.5 RATIO (10-20); Chloride 105 mmol/L (98-107); Creatinine, Serum 2.15 mg/dL (0.70-1.30); EST Glomerular Filtration Rate 31 mL/min (>60); Est Glom Filt Rate - Afr Amer 38 mL/min (>60); Estimated Creatinine Clearance 19.75 ml/min; Glucose 185 mg/dL (74-106); Potassium 4.6 mmol/L (3.5-5.1); Sodium Level 140 mmol/L (136-145)
[2023-01-22] MEDS: Amiodarone 360 MG in Dextrose 5% Viaflo Bag 192.8 ML 16.7 MG CONT INF (05:09)
--- NOTE | 2023-01-22 07:04 | PCM.PN.HOSP ---
Reason for Visit Reason for Visit: Shortness of breath Subjective Subjective Mr. Dawson is an 82-year-old male who present emergency department [facility] on 01/20/2023 complaining of acute onset shortness of breath that started 3 hours prior to presentation. He was also noted to have severely elevated blood pressure at the time of presentation with systolics greater than 200. Without treatment, his blood pressure improved and he did experience improvement in his shortness of breath with the nebulizer. CT of his chest was performed and showed bilateral pleural effusions. His hemoglobin was found to be 16.5, D-dimer was 1.2, PaO2 on his ABG was 65. His serum creatinine was 1.6 and his lactic acid was 2.3. His initial troponin was 204. In the emergency department he was started on IV fluids at 100 cc/h but he had a similar episode where he experienced acute onset worsening shortness of breath with acute desaturation and bilateral rales and he was started on BiPAP, given IV Lasix and his oxygen saturations improved. His blood pressure at that time was 180/110. It was felt that most likely this was a hypertensive emergency related to elevated blood pressures and flash pulmonary edema and he was admitted to the ICU. An echocardiogram was performed on 01/20/2023 and demonstrated a mildly dilated LV with stage I diastolic dysfunction and severe LV systolic dysfunction with apical kinesis and estimated EF of 20 to 25%. There is no previous echo for comparison but, he was on no medications indicating he had depressed EF prior to presentation. He was noted to go in atrial fibrillation on the evening of 03/23/2022 with a rate between 115 and 160. He was placed on a beta-pelon and was given 1 dose of IV digoxin as well as started on subcu Lovenox therapeutically per discussion with Dr. Posey from cardiology. He remained in atrial fibrillation by the morning of 01/21/2023 and was started on a amiodarone drip. And cardiology was consulted. They are recommending cardiac catheterization which is planned for today. Patient states he is did not sleep well and tired of being in the hospital. Wants to go home. Doubt he has medical capacity to leave AMA. Objective Data Objective Data Vital Signs: Vital Signs Temp Pulse Resp BP Pulse Ox O2 Del Method FiO2 98.7 F 63 17 136/92 H 97 Room Air 30 01/22/23 04:00 01/22/23 06:00 01/22/23 06:00 01/22/23 06:00 01/22/23 06:00 01/22/23 06:00 01/20/23 06:40 Oxygen Delivery Method Room Air Weight: 60.3 kg Body Mass Index (BMI) 24.3 Intake & Output: Intake and Output for Last 24 Hours 01/20/23 01/21/23 01/22/23 23:59 23:59 23:59 Intake Total 1538.60 / 1538.60 409.32 / 426.02 107.88 / 107.88 Output Total 2550 / 2550 400 / 600 550 / 550 Balance -1011.40 / -1011.40 9.32 / -173.98 -442.12 / -442.12 Lab / Micro Data 01/21/23 04:40 01/22/23 03:45 Labs: Laboratory Results - last 24 hr 01/21/23 04:40: Triglycerides 96, Cholesterol 160, LDL Cholesterol 88, VLDL Cholesterol 19, HDL Cholesterol 53 01/22/23 03:45: Sodium 140, Potassium 4.6, Chloride 105, Carbon Dioxide 27.0, Anion Gap 8, BUN 29 H, Creatinine 2.15 H, Estim Creat Clear Calc 19.75, Est GFR (MDRD) Af Amer 38 L, Est GFR (MDRD) Non-Af 31 L, BUN/Creatinine Ratio 13.5, Glucose 185 H, Calcium 8.0 L Micro: Microbiology 01/20/23 04:00 Nasal Secretion SARS-CoV-2 & FLU Antigen (Rapid) - Final Rhythm Strip Rhythm Strip: A-fib Physical Exam Const alert, no apparent distress, average body habitus and well nourished Constitutional Narrative: mild confusion, Elderly white male, appears comfortable, non-toxic, currently on RA. HEENT head/scalp atraumatic, moist oral mucous membranes and oropharynx normal HEENT Narrative: dentition fair Head and Scalp: normocephalic Eyes PERRL, EOMs intact bilaterally and conjunctivae normal Neck no lymphadenopathy and supple Resp normal respiratory effort, no retractions, no use of accessory muscles and clear to auscultation bilaterally Resp Narrative: diminished Auscultation: Negative for rales, rhonchi or wheezes Cardio regular rate, regular rhythm, S1 normal heart sound, S2 normal heart sound, no murmurs, no rub, no gallops and no clicks GI normal to inspection, nondistended, normoactive bowel sounds, soft to palpation and non-tender Extremity no clubbing, cyanosis or edema Extremity Narrative: Pedal pulses are 2+, radial pulse is are 2+ Neuro moves all extremities and no focal motor deficits Neuro Narrative: Seems to have some mild confusion Sensorium / Orientation: awake, alert and oriented to person Speech: speech normal Psych Psych Narrative: Somewhat agitated this morning wanting to leave Assessment & Plan Assessment/Plan (1) Acute hypoxic respiratory failure: (2) Atrial fibrillation: (3) Congestive heart failure with left ventricular systolic dysfunction (LVSD): (4) Pleural effusion, bilateral: (5) Lactic acidosis: (6) Non-ST elevation MT (NSTEMI): (7) Acute kidney injury: (8) Hyperbilirubinemia: PLAN: Plan Acute hypoxic respiratory failure secondary to decompensated heart failure with reduced ejection fraction/bilateral pleural effusions -Patient on presentation had hypoxia on room air with an oxygen saturation of 86% and while in the emergency department required rescue BiPAP due to acute hypoxia and shortness of breath related to heart failure -Diuretics added by cardiology today -Would continue but may need to uptitrate dose with his renal function -Continue strict I's and O's -Thus far patient is -1444 cc for the hospitalization -Add sodium and fluid restricted diet -Daily weights -Patient has been weaned to room air at this time -Repeat a.m. chest x-ray -May need to consider thoracentesis -Will need ambulatory pulse ox prior to discharge NSTEMI -Type unknown -Plan is for cardiac catheterization later today however with climbing serum creatinine unclear if this will happen -Continue therapy as prescribed by cardiology -Continue full anticoagulation -Will need to adjust dose if renal function deteriorates any further -Cardiology following-appreciate input Cardiomyopathy-type unknown at this time -EF found between 20 and 25% on echocardiogram -Previous echo not available -Continue carvedilol -Continue Aldactone -Continue Lasix as ordered by cardiology -Hold HEIKE inhibitor due to renal function -Continue Jardiance--> will need to discontinue if renal function deteriorates any further -Cardiac catheterization later today rule out ischemic cardiomyopathy -May need to be placed on hold due to deteriorating renal function ADAN -Baseline serum creatinine is unknown however patient renal function has deteriorated since admission where it was 1.6 -Currently renal function is 2.15 -Check retroperitoneal ultrasound -Hold nephrotoxins as able -Renally dose medications -Check urine studies with urine urea, urine sodium, urine creatinine, and UA -If renal function continues to climb we will consult nephrology in the next 24 hours Atrial fibrillation -Patient fully anticoagulated with Lovenox subcu -Continue amiodarone drip with management per cardiology recommendations -Anticipate transition to amiodarone 200 mg p.o. twice daily after drip is completed -Continue carvedilol -Continue to monitor on telemetry -TSH is within normal limits Large bilateral pleural effusions -Continue diuresis -Repeat CT of the chest -If does not improve may need to consider thoracentesis Hyperbilirubinemia -Bilirubin yesterday was 2.6 -Suspect related to passive congestion -Repeat lab in a.m. -The rest of his LFTs are within normal limits Lactic acidosis -Resolved -Suspect related to hypoxia and respiratory distress on presentation GERD -Continue Protonix 40 mg p.o. daily Mild cognitive impairment -Daughter reported previously that he is confused sometimes -No confirmed diagnosis of dementia -Monitor clinically -I think this precludes patient from being able to leave AMA DVT prophylaxis -Full anticoagulation with Lovenox CODE STATUS -Documented as full code however unverified Charges/Coding Visit Charges Inpatient E&M: 57354 [facility] Hosp L3
--- NOTE | 2023-01-22 07:12 | US_ITS ---
STUDY: RENAL ULTRASOUND - COMPLETE REASON FOR EXAM: Male, 82 years old. ADAN TECHNIQUE: Ultrasound evaluation of the kidneys was performed with real-time and static ortega-scale imaging. COMPARISON: None. FINDINGS: RIGHT KIDNEY: Normal location of the right kidney, which is normal in size. The right kidney measures 8.7 cm x 3.8 cm x 4 cm. There is a normal cortex of the right kidney. The renal cortex measures 1.0 cm. There is no right renal mass or cyst. There are no right renal calculi. There is no right hydronephrosis. DISTAL RIGHT URETER: There is non-visualization of the distal right ureter. There is no demonstrated right ureterovesical junction calculus. There is no demonstrated right ureteral jet. LEFT KIDNEY: Normal location of the left kidney, which is normal in size. The left kidney measures 9 cm x 3.9 cm x 4.7 cm. There is a normal cortex of the left kidney. The renal cortex measures 1.1 cm. There is a 3.1 cm x 3.1 cm x 2.2 cm cyst. There are no left renal calculi. There is no left hydronephrosis. DISTAL LEFT URETER: There is non-visualization of the distal left ureter. There is no demonstrated left ureterovesical junction calculus. There is no demonstrated left ureteral jet. BLADDER: The bladder is empty at time of the examination. US/Kidney and Bladder IMPRESSION: 3.1 cm x 3.1 cm x 2.2 cm left renal cyst. Electronically Signed: Jacques Whitten MD at 11:13 EST ,
--- NOTE | 2023-01-22 08:29 | PCM.PN.CARD ---
Subjective Subjective Denies any complaints. Converted to normal sinus rhythm. Objective Data Vital Signs: Vital Signs Temp Pulse Resp BP Pulse Ox O2 Del Method FiO2 98.7 F 64 18 140/86 H 92 Room Air 30 01/22/23 04:00 01/22/23 07:00 01/22/23 07:00 01/22/23 07:00 01/22/23 07:19 01/22/23 07:19 01/20/23 06:40 Oxygen Delivery Method Room Air Weight: 132 lb 15.02 oz Body Mass Index (BMI) 24.3 Intake & Output: Intake and Output for Last 24 Hours 01/20/23 01/21/23 01/22/23 23:59 23:59 23:59 Intake Total 1538.60 / 1538.60 409.32 / 426.02 124.58 / 124.58 Output Total 2550 / 2550 400 / 600 550 / 550 Balance -1011.40 / -1011.40 9.32 / -173.98 -425.42 / -425.42 Lab / Micro Data 01/21/23 04:40 01/22/23 03:45 Labs: Laboratory Results - last 24 hr 01/21/23 04:40: Triglycerides 96, Cholesterol 160, LDL Cholesterol 88, VLDL Cholesterol 19, HDL Cholesterol 53 01/22/23 03:45: Sodium 140, Potassium 4.6, Chloride 105, Carbon Dioxide 27.0, Anion Gap 8, BUN 29 H, Creatinine 2.15 H, Estim Creat Clear Calc 19.75, Est GFR (MDRD) Af Amer 38 L, Est GFR (MDRD) Non-Af 31 L, BUN/Creatinine Ratio 13.5, Glucose 185 H, Calcium 8.0 L Rhythm Strip Rhythm Strip: Sinus Rhythm Cardiology Labs/Tests 01/21/23 04:40: Triglycerides 96, Cholesterol 160, LDL Cholesterol 88, VLDL Cholesterol 19, HDL Cholesterol 53 01/22/23 03:45: Sodium 140, Potassium 4.6, Chloride 105, Carbon Dioxide 27.0, Anion Gap 8, BUN 29 H, Creatinine 2.15 H, Est GFR (MDRD) Af Amer 38 L, Est GFR (MDRD) Non-Af 31 L, BUN/Creatinine Ratio 13.5, Glucose 185 H, Calcium 8.0 L Rhythm: EKG: ECHO: Stress Test: Cardiac Cath: PCI: CT Surgery: Holter monitor: EPS: PPM: CXR: Chest CT Scan: Physical Exam Narrative Comfortable. No apparent distress. Heart sounds 1 and 2 are noted. Irregularly irregular. Chest examination shows decreased breath sounds at bases. Abdomen soft. Alert oriented x 3. No ankle edema. Assessment & Plan Assessment/Plan (1) Dyspnea: PLAN: Secondary to severe LV systolic dysfunction and congestive heart failure. Improved with diuresis. Continue. Monitor creatinine. Continue beta-blockers. Will add angiotensin receptor pelon or HEIKE inhibitor when renal function stable. Started on SGLT2 inhibitor. (2) Coronary artery disease: PLAN: Coronary artery calcifications noted on chest CT. Continue aspirin. ECG and echo evidence point towards old anterior myocardial infarction. Troponin is mildly elevated during this admission. Likely secondary to demand issue on top of his CAD. Recommend coronary angiography at some point in time. However will wait for the renal function to stabilize first. (3) Congestive heart failure with left ventricular systolic dysfunction (LVSD): PLAN: Beta-blockers. HEIKE inhibitors when renal function stable. SGLT2 inhibitors. Start Aldactone. (4) Atrial fibrillation: PLAN: Continue heparin. Change amiodarone to p.o. (5) Acute kidney injury: PLAN: Creatinine up. Likely contrast-induced nephropathy with recent chest CTA. Monitor. Recommend nephrology consult. (6) Pleural effusion, bilateral: PLAN: Consult pulmonology to evaluate for possible thoracentesis.
--- NOTE | 2023-01-22 08:49 | CT_ITS ---
STUDY: CT CHEST WITHOUT CONTRAST REASON FOR EXAM: Male, 82 years old. Pleural effusions RADIATION DOSAGE (If Supplied By Facility): CTDIvol = ( 11.23 ) mGy, DLP = ( 373.24 ) mGycm TECHNIQUE: Transaxial imaging was performed without the administration of intravenous contrast material. Multiplanar coronal and sagittal images were reformatted. Individualized dose optimization techniques were used for this CT. COMPARISON: Comparison is made with prior CT scan the chest dated January 20, 2023. FINDINGS: CHEST Enlargement of the left lobe of the thyroid gland with substernal extension. Minimal narrowing of the trachea. Moderate bilateral pleural effusions with the bibasilar atelectasis and/or early infiltrates. Mild scarring and bronchiectasis along the anterior medial aspect of the right middle lobe. There is a 1.3 cm x 1.1 cm x 1.1 cm spiculated nodule in the superior medial aspect of the right lower lobe as seen on axial image #45 and sagittal image #91. Correlation with a PET scan is recommended. There are calcifications of the coronary arteries. Sternal cerclage wires and vascular clips are present from a prior sternotomy and coronary artery bypass graft procedure (CABG). Normal mediastinum. Normal hilar regions. Normal unenhanced pulmonary arteries. There is atherosclerotic calcification of the aortic arch. There are multi-level degenerative changes of the thoracic spine. There is no demonstrated abnormality of the visualized upper abdomen. CT/Chest without Contrast IMPRESSION: Moderate-sized bilateral pleural effusions with bibasilar atelectasis. 1.3 cm x 1.1 cm x 1.1 cm spiculated nodule seen in the posterior medial aspect of the right lower lobe. This is unchanged. Correlation with PET scan is recommended. Electronically Signed: Jacques Whitten MD at 10:25 EST ,
[2023-01-22 08:56] LABS: T3 Total - Triiodothyronine 1.43 ng/mL (0.6-1.81)
[2023-01-22] MEDS: Amiodarone 200 MG Tablet PO (09:26)
[2023-01-22] MEDS: Potassium Chloride Oral Tablet 20 MEQ PO ×2 (09:26→17:50)
[2023-01-22] MEDS: Aspirin E.C. 81 MG Tablet PO (09:26)
[2023-01-22] MEDS: Pantoprazole Sodium 40 MG Tablet PO (10:32)
[2023-01-22] MEDS: Carvedilol 3.125 MG TABLET PO ×2 (10:36→21:29)
[2023-01-22] MEDS: Empagliflozin 10 MG Tablet PO (10:36)
[2023-01-22] MEDS: Enoxaparin 60 MG/0.6 ML Syringe SC (10:37)
[2023-01-22] MEDS: Clopidogrel Bisulfate 75 MG Tablet PO (10:50)
[2023-01-22 11:04] LABS: Bacteria 0 SEEN /hpf (None Seen); Mucous, Urine 0 SEEN /hpf (<or=2+); Squamous Epithelial Cells - UA 0 SEEN /hpf (0-5); White Blood Cells 0 SEEN /hpf (0-5)
--- NOTE | 2023-01-22 11:15 | CON.PCM.RE_ITS ---
Assessment & Plan Assessment/Plan (1) Acute kidney injury: (2) Pleural effusion, bilateral: (3) Congestive heart failure with left ventricular systolic dysfunction (LVSD): (4) Atrial fibrillation: PLAN: Plan This is an 82-year-old male with past medical history significant for diabetes mellitus type 2, hypertension, dementia who presented to emergency room on 01/20 with complaints of shortness of breath. Also noted to be significantly hypertensive upon presentation. Blood pressures did improve in the emergency room, also in the emergency room patient was started on gentle IV fluids but became significantly dyspneic and again hypertensive, placed on BiPAP and given IV Lasix again with improvement. Patient was admitted. Nephrology consulted in view of rising serum creatinine. Patient does not follow with c application developer. On November 24, 2022 serum creatinine 1.4 mg/dL. 01/20 serum creatinine 1.6, 01/21 creatinine 1.7 and today creatinine is up to 2.15 mg/dL. Patient does have urine output. Patient did have some urinary retention initially on admission Long was placed but then Long was removed due to leaking around tubing. Renal ultrasound has been ordered, pending. UA ordered, pending. Likely prerenal ADAN multifactorial from significant hypertensive then with blood pressure fluctua tions to becoming hypotensive, A-fib with heart rates above 100 upon presentation with improvement to 50-60s, in addition to possible component from IV contrast. Patient has been receiving IV Lasix with improvement in volume status. Today patient's volume status is acceptable, he is on room air with no pitting edema, lung sounds clear. Can hold diuretics for today only. Evaluate for diuretics tomorrow. Echo: Severe LV systolic dysfunction with apical akinesis, EF 20-25%, stage I diastolic dysfunction, mildly dilated left ventricle, mild mitral valve insufficiency, mild aortic valve insufficiency. Cardiology following as patient noted to have detectable troponin, A-fib. Possible plan for heart catheterization once renal function improves. Discussed with patient's daughter and at bedside possible risk contrast could have on kidney function. Both voiced understanding, questions answered. Also reviewed with daughter and last SCr of 1.4 two months ago. Will also check UPCR. Further orders forthcoming as hospitalization evolves, thank you for allowing us to participate in the care of Mr. Preston. HPI Consult Data Date of Consult: 01/22/23 HPI Narrative HPI Narrative: [place], is a 82 M who presented to the emergency room on January 20 early a.m. with complaints of acute onset shortness of breath. Upon presentation to the emergency room systolic blood pressures were greater than 200 but without treatment blood pressures improved; he was also noted to be in Afib. His breathing improved with nebulizers. BNP 105. Patient had CT scan of chest with IV contrast found to have bilateral pleural effusions. Workup in emergency room revealed detectable troponin, patient was admitted for further evaluation and t reatment. Nephrology consulted in view of rising creatinine. Information is gathered from chart and patient's daughter and who are at bedside. Per daughter patient has been noncompliant with medications, including his diabetic medications, blood pressure medication and thyroid med. He does not take NSAIDs. Patient does not follow with c application developer. No recent issues with urinary habits including dysuria or hematuria. [facility] Medical History unable to obtain Home Medications NK 01/20/23 [History Last Taken Unknown] Allergy/AdvReac Type Severity Reaction Status Date / Time No Known Allergies Allergy Verified 01/20/23 04:28 Social History Smoking Status: Never smoker ROS ROS Narrative As in HPI and past medical history Physical Exam Narrative Alert and oriented, no apparent distress S1, S2, rhythm irregular, rate controlled Lung sounds clear anteriorly and posteriorly. No wheezes, rhonchi or rales noted Abdomen soft, nontender No pitting edema External catheter with clear yellow urine in canister Lab / Micro Data 01/21/23 04:40 01/22/23 03:45 Labs: Laboratory Results - last 24 hr 01/20/23 12:46: Total T3 1.43 01/22/23 03:45: Sodium 140, Potassium 4.6, Chloride 105, Carbon Dioxide 27.0, Anion Gap 8, BUN 29 H, Creatinine 2.15 H, Estim Creat Clear Calc 19.75, Est GFR (MDRD) Af Amer 38 L, Est GFR (MDRD) Non-Af 31 L, BUN/Creatinine Ratio 13.5, Glucose 185 H, Calcium 8.0 L Micro: Microbiology 01/20/23 04:43 Blood Culture (Wb) #2 - Left Wrist Blood Culture - Preliminary No growth in 48 hours. 01/20/23 04:10 Blood Culture (Wb) - Left Wrist Blood Culture - Preliminary No growth in 48 hours. Rhythm Strip Rhythm Strip: Sinus Rhythm Imagaing Radiology Impression Renal Ultrasound 01/22/23 07:12 IMPRESSION: 3.1 cm x 3.1 cm x 2.2 cm left renal cyst. Electronically Signed: Jacques Whitten MD at 11:13 EST , Chest CT 01/22/23 08:49 IMPRESSION: Moderate-sized bilateral pleural effusions with bibasilar atelectasis. 1.3 cm x 1.1 cm x 1.1 cm spiculated nodule seen in the posterior medial aspect of the right lower lobe. This is unchanged. Correlation with PET scan is recommended. Electronically Signed: Jacques Whitten MD at 10:25 EST ,
[2023-01-22 11:16] LABS: Color, Urine Yellow (Yellow); Glucose, Dipstick 1000 mg/dl (Normal); Ketone-Dipstick 5 mg/dl (Negative); Leukocyte Esterase-Dipstick 25 /ul (Negative); Nitrite-Dipstick Negative (Negative); Occult Blood-Urine 250 /ul (Negative); Protein-Dipstick 30 mg/dl (Negative); Urine Bilirubin Dipstick Negative (Negative); Urine Clarity Cloudy (Clear); Urine Urobilinogen 1 mg/dl (Normal)
[2023-01-22 11:20] LABS: Urea Nitrogen, Urine 958 mg/dL (NO RANGE EST.); Urine Sodium 12 mmol/L (Not Establ.)
[2023-01-22 11:24] LABS: Red Blood Cells-Urine 0-5 SEEN /hpf (0-5)
[2023-01-22 11:25] LABS: Amorphous Sediment 3+ URATE
--- NOTE | 2023-01-22 12:11 | CON.PCM.CC_ITS ---
Assessment & Plan Assessment/Plan (1) Pleural effusion, bilateral: (2) Lung nodule: PLAN: Plan RECOMMENDATIONS: 1. Proceed with ultrasound-guided thoracentesis for therapeutic relief. 2. Outpatient pulmonary follow-up after discharge is recommended. 3. Recommend follow-up chest CT in 6 to 8 weeks. If the nodule persists, will obtain biopsy. 4. Remainder of medical management per cardiology. IMPRESSIONS: 1. Decompensated heart failure/NSTEMI/unspecified cardiomyopathy Continue medical management per cardiology recommendations. 2. Bilateral pleural effusions Most likely secondary to his decompensated heart failure. Continue current medical management per cardiology. Tentative plans for ultrasound-guided thoracentesis today for therapeutic relief. 3. Pulmonary nodule CT imaging demonstrated a right lower lobe pulmonary nodule, which appears larger than 1 cm in size. The exact chronicity for this finding is not clear. The patient has a very remote smoking history, having quit completely in 1989. Recommend outpatient pulmonary follow-up after discharge, with plans to repeat chest imaging in 6 to 8 weeks. If this nodule persists at that time, would re commend tissue biopsy. This note was generated with [employer] dictation software. It may contain incorrect words, spelling, and punctuation that were not noted in checking the note before signing. HPI Consult Data Date of Consult: 01/22/23 HPI Narrative Reason for Consultation: Pulmonary nodule HPI Narrative: The patient is an 82-year-old male, with a history as outlined below, who presented to the emergency department on January 20 with shortness of breath. The patient was initially born in [place] and relocated here in 1989. He did report that he previously smoked around a pack of cigarettes per day, but quit completely in 1989. He has never been diagnosed with any COPD or asthma. He has never been diagnosed with tuberculosis. Upon presentation to the emergency department, the patient was documented to be afebrile. He was, however, significantly hypertensive with a presenting blood pressure of 200/131 mmHg. The patient was hypoxemic at 86% on room air. Initial laboratory evaluation revealed no evidence of a leukocytosis. Chemistry profile was notable for a creatinine of 1.6 with a lactate of 2.3 and troponin of 204. CTA chest showed no evidence for pulmonary embolism but did reveal bilateral pleural effusions. Surface echocardiogram completed on January 20 demonstrated an ejection fraction of 20% and stage I diastolic dysfunction. Cardiology consultation was obtained yesterday and medical therapy was recommended. A follow-up CT chest was obtained earlier today and demonstrated continued presence of bilateral pleural effusions along with an approximate 1.3 cm nodule in the right lower lobe, which was actually present on the patient's CTA chest demonstrated January 20, although it was not directly commented upon. [facility] Medical History unable to obtain Home Medications NK 01/20/23 [History Last Taken Unknown] Allergy/AdvReac Type Severity Reaction Status Date / Time No Known Allergies Allergy Verified 01/20/23 04:28 Social History Smoking Status: Never smoker ROS ROS Narrative 10 systems were reviewed with pertinent positives as noted in the HPI above. Physical Exam Const alert and no apparent distress Constitutional Narrative: [id number] is present at the bedside. General Appearance: cooperative HEENT normocephalic and head/scalp atraumatic Eyes PERRL, EOMs intact bilaterally and conjunctivae normal Neck supple General: trachea midline Chest inspection of chest normal Resp Auscultation: rales and diminished lung sounds Cardio regular rate and regular rhythm GI normal to inspection, nondistended, normoactive bowel sounds Extremity no clubbing, cyanosis or edema Skin no rashes or lesions noted Neuro CN's II-XII intact bilaterally, moves all extremities and no focal motor deficits Psych cooperative and affect normal Lab / Micro Data 01/21/23 04:40 01/22/23 03:45 Labs: Laboratory Results - last 24 hr 01/20/23 12:46: Total T3 1.43 01/22/23 03:45: Sodium 140, Potassium 4.6, Chloride 105, Carbon Dioxide 27.0, Anion Gap 8, BUN 29 H, Creatinine 2.15 H, Estim Creat Clear Calc 19.75, Est GFR (MDRD) Af Amer 38 L, Est GFR (MDRD) Non-Af 31 L, BUN/Creatinine Ratio 13.5, Glucose 185 H, Calcium 8.0 L 01/22/23 10:55: Urine Color Yellow, Urine Clarity Cloudy, Urine pH 5.0, Ur Specific [place] 1.020, Urine Protein 30 H, Urine Glucose (UA) 1000 H, Urine Ketones 5 H, Urine Occult Blood 250 H, Urine Nitrite Negative, Urine Bilirubin Negative, Urine Urobilinogen 1 H, Ur Leukocyte Esterase 25 H, Urine RBC 0-5 SEEN, Urine WBC 0 SEEN, Ur Squamous Epith Cells 0 SEEN, Amorphous Sediment 3+ URATE, Urine Bacteria 0 SEEN, Urine Mucus 0 SEEN, Ur Random Sodium 12, Urine Creatinine 230.00, Urine Urea Nitrogen 958 Micro: Microbiology 01/20/23 04:43 Blood Culture (Wb) #2 - Left Wrist Blood Culture - Preliminary No growth in 48 hours. 01/20/23 04:10 Blood Culture (Wb) - Left Wrist Blood Culture - Preliminary No growth in 48 hours. Rhythm Strip Rhythm Strip: Sinus Rhythm Imagaing Radiology Impression Renal Ultrasound 01/22/23 07:12 IMPRESSION: 3.1 cm x 3.1 cm x 2.2 cm left renal cyst. Electronically Signed: Jacques Whitten MD at 11:13 EST , Chest CT 01/22/23 08:49 IMPRESSION: Moderate-sized bilateral pleural effusions with bibasilar atelectasis. 1.3 cm x 1.1 cm x 1.1 cm spiculated nodule seen in the posterior medial aspect of the right lower lobe. This is unchanged. Correlation with PET scan is recommended. Electronically Signed: Jacques Whitten MD at 10:25 EST , Charges/Coding Visit Charges Inpatient E&M: 82485 Init Hosp L3
--- NOTE | 2023-01-22 12:45 | FLU_PTH ---
PATIENT: [facility] LOC: ICU U#:[id number] AGE/SX: 82/M ROOM: [place] [address] RE01/20/[address]: Dr. Faith Mario DO : 1940 BED: 1 DIS: 01/24/2023 SPEC #: [id number] RECD: 01/22/23 12:54 STATUS: CAREY REQ #: [id number] JUDAH: 01/22/23 12:[address]: Faith Mairo DEPT: CYTOLOGY RECD BY: Eun Harley ENTERED: 01/22/23 13:41 SP TYPE: Fluid OTHR DR: MD Dr. Chi Acharya MD Dr. Bruce Arthur, MD Dr. Derek Brown, MD Dr. Priscila Pennington Dr., MD Dr. Mark Tereletsky, MD Dr. Mo Esteves Dr., MD Christina Muller, VERIFYING MACHINE OPERATOR-C Tissues: Pleural fluid, NOS Procedures: Special Stain Group II Mucicarmine Stain (control) Surgery Specimen Level IV Cytospin Fluid HEADER OPERATION: Thoracentesis PRE-OP DIAGNOSIS: Pleural effusion TISSUE SUBMITTED: Thoracentesis fluid for cytology DIAGNOSIS CYTOLOGY Thoracentesis fluid for cytology (cytospin and cell block): Negative for malignant cells. See comment. SJ:kwesi 01/24/2023 COMMENT Immunohistochemistry ([id number]) supports the above diagnosis. Mucin stain with matched control was used in the evaluation of this case. Correlation with clinical, radiologic findings and appropriate follow up are necessary. Case has been reviewed in consultation with Dr. Rey who concurs with the above diagnosis. IDC:AM CYTOLOGY STUDY Slides are reviewed. CYTOLOGY GROSS Received is 90 ml of yellow cloudy fluid labeled with the patient's name and and designated per the requisition as thoracentesis. Submitted for cytology preparation including cell block. / kwesi 01/22/2023 TC:5 CPT: 14359, 19928, 71878
[2023-01-22] MEDS: Lidocaine 2% (20 ml mdv) 20 ML Vial INFILT (12:46)
[2023-01-22 12:50] LABS: LDH 233 U/L (87-241)
--- NOTE | 2023-01-22 12:55 | RAD_ITS ---
STUDY: X-RAY CHEST REASON FOR EXAM: Male, 82 years old. Post thoracentesis TECHNIQUE: AP inspiration and expiration views. COMPARISON: Comparison is made with prior study dated January 20, 2023. FINDINGS: EKG electrodes are seen. No evidence of pneumothorax on the immediate post right thoracentesis examination. RAD/Chest Insp/Exp 2 View IMPRESSION: No evidence of pneumothorax on the immediate post right thoracentesis examination. Electronically Signed: Jacques Whitten MD at 13:15 EST ,
[2023-01-22 13:11] LABS: Cytology, Body Fluid / CSF SEE PATHOLOGY REPORT
[2023-01-22 13:18] LABS: Body Fluid Mononuclear WBC # 0.491 10^3/uL; Body Fluid Mononuclear WBC % 78.7 %; Body Fluid Polynuclear WBC # 0.133 10^3/uL; Body Fluid Polynuclear WBC % 21.3 %; White Blood Count/Body Fluid 0.624 10^3/uL
--- NOTE | 2023-01-22 13:19 | PCM.OP.PRO ---
Procedure Report Date of Procedure: 01/22/23 Assessment & Plan Assessment/Plan (1) Pleural effusion, bilateral: PLAN: PROCEDURE: Ultrasound Guided Thoracentesis ORDERING PROVIDER: Dr. Faith Mario INDICATION: Female, 82 years old. Bilateral pleural effusions. PROVIDER: MARIO Hadley PROCEDURE: Preprocedural evaluation of the patient was completed involving assessment of risk versus benefit with first dose of Plavix this morning. This was ordered by cardiology, Dr. Posey. Very low bleeding risk procedure and given the patient will be monitored closely as an inpatient, we will proceed with ordered thoracentesis. The risks, benefits, and alternatives to the procedure were explained to the [id number] of the patient, who provided translation to the patient. The specific risks of bleeding, infection, and pneumothorax requiring chest tube insertion were discussed and accepted. Written informed consent was obtained. The patient was placed in the sitting, upright position. Ultrasonographic evaluation of the bilateral lower pleural spaces was carried out. An adequate pocket was identified in the right lower pleural space.The overlying skin was prepped and draped in sterile fashion. 2% lidocaine was administered subcutaneously for local anesthesia. Under ultrasound guidance, a 5-Romanian thoracentesis needle/catheter system was advanced into the right posterior lower pleural fluid collection. 910 ml of clear light red colored fluid was drained. The catheter was removed, and a sterile dressing was applied. The patient tolerated the procedure well. A chest x-ray was ordered. IMPRESSION: Successful ultrasound-guided thoracentesis of right pleural effusion. Procedures Radiology Radiology US Procedures: [id number] Thoracentesis
[2023-01-22 13:20] LABS: Auto B Fluid Analyzer BKGD Ct COUNTS W/IN LIMITS (W/IN LIMITS)
[2023-01-22 13:21] LABS: Appearance/Body Fluid CLEAR; Color/Body Fluid YELLOW; Source- Body Fluid THORACENTESIS
[2023-01-22] MEDS: Nitroglycerin Oint 1 INCH PACKET TD ×2 (13:31→17:53)
[2023-01-22 13:41] LABS: Glucose, Body Fluid 154 mg/dL (40-70); LDH,Body Fluid 97 Units/L (Not Establ.); Protein, Body Fluid 3.4 g/dL (Not Establ.)
[2023-01-22 14:07] LABS: Lymphocytes 32 %; Macrophages 53 %; Mesothelial Cells 1 %; Neutrophil (Segs) 14 %
[2023-01-22 14:20] LABS: Red Cell Count/Body Fluid 885 /mm3
[2023-01-22 14:28] LABS: Body Fluid QC Type(s) BF1Q
[2023-01-22 17:59] LABS: Bedside Glucose 136 mg/dL (74-106)
[2023-01-22] MEDS: 0.9% Normal Saline (1000mL) 1,000 ML 50 ML IV (18:33)
[2023-01-22] MEDS: Atorvastatin Calcium 20 MG Tablet PO (21:29)
[2023-01-22 21:57] LABS: Bedside Glucose 75 mg/dL (74-106)
[2023-01-23] MEDS: Nitroglycerin Oint 1 INCH PACKET TD ×3 (00:55→15:33)
[2023-01-23 04:00] VITALS: BP 117/70; PULSE 60; RESP 14; TEMP 36.1; O2SAT 97
[2023-01-23 04:31] LABS: Absolute Lymphocyte Count 1.13 X10^3/uL (0.83-4.51); Absolute Neutrophil Count 5.9 X10^3/uL (2.0-7.7); Basophil# 0.03 X10^3/uL; Basophil% 0.4 % (0-1); Eosinophil# 0.14 X10^3/uL; Eosinophils% 1.8 % (0-5); Hematocrit 45.1 % (40-54); Hemoglobin 14.6 g/dL (13.0-16.5); Lymphocyte # 1.13 X10^3/ul (0.83-4.51); Lymphocyte % 14.3 % (19-41); Mean Corp Hgb Conc 32.4 g/dL (32-36); Mean Corpuscular Hgb 29.1 pg (27.0-32.0); Mean Corpuscular Volume 89.8 fL (80-94); Mean Platelet Vol. 11.4 fl (6.2-12.0); Monocyte# 0.61 X10^3/uL; Monocyte% 7.7 % (0-10); NRBC Flagged by Analyzer 0 % (0-5); Neutrophil # 5.94 X10^3/uL (2.7-7.7); Neutrophil % 75.4 % (47-70); Platelet Count 159 K/mm3 (150-450); RBC Distribution Width CV 12.7 % (11.6-14.6); RBC Distribution Width SD 42.1 fl (35.1-43.9); Red Blood Count 5.02 M/mm3 (4.6-6.2); White Blood Count 7.9 K/mm3 (4.4-11.0)
[2023-01-23 04:51] LABS: ALB/GLOB Ratio 0.9 RATIO (0.9-2.4); AST(SGOT) 29 U/L (15-37); Alanine Aminotransfer ALT/SGPT 22 U/L (16-61); Albumin, Serum 3.3 g/dL (3.2-5.0); Alkaline Phosphatase 88 U/L (45-117); Anion Gap 7 (5-15); BUN 27 mg/dL (7-18); Bilirubin, Direct 0.37 mg/dL (0.00-0.30); Calcium,Total 7.6 mg/dL (8.5-10.1); Chloride 108 mmol/L (98-107); EST Glomerular Filtration Rate 38 mL/min (>60); Est Glom Filt Rate - Afr Amer 46 mL/min (>60); Estimated Creatinine Clearance 23.59 ml/min; Globulin 3.5 g/dL (2.2-4.2); Glucose 106 mg/dL (74-106); Magnesium 2.3 mg/dL (1.6-2.6); Phosphorus 3.6 mg/dL (2.5-4.9); Potassium 4.5 mmol/L (3.5-5.1); Protein, Total 6.8 g/dL (6.4-8.2); Sodium Level 141 mmol/L (136-145)
[2023-01-23 05:19] VITALS: BMI 24.2
[2023-01-23] MEDS: 0.9% Saline Lock 10 ML Syringe IV (06:59)
--- NOTE | 2023-01-23 07:00 | PN.CC_ITS ---
Assessment & Plan Assessment/Plan (1) Pleural effusion, bilateral: (2) Lung nodule: PLAN: Plan RECOMMENDATIONS: 1. Diuretics as tolerated by hemodynamics and renal function. 2. Outpatient pulmonary follow-up after discharge is recommended. 3. Recommend follow-up chest CT in 6 to 8 weeks. If the nodule persists, will obtain biopsy. 4. Remainder of medical management per cardiology. 5. Will sign off from a pulmonary perspective. Please call with any additional questions. IMPRESSIONS: 1. Decompensated heart failure/NSTEMI/unspecified cardiomyopathy Continue medical management per cardiology recommendations. 2. Bilateral pleural effusions The patient is status post ultrasound-guided thoracentesis. Plan to continue medical management per cardiology recommendations. Per traditional Light's criteria, if at least one of the following three is fulfilled, the fluid would be considered an exudate: 1. Pleural fluid protein/serum protein ratio greater than 0.5 2. Pleural fluid LDH/serum LDH ratio greater than 0.6 3. Pleural fluid LDH greater than two thirds the upper limits of the labo ratories normal serum LDH Based upon my review of the patient's pleural fluid analysis, along with serum LDH and total protein levels, the pleural fluid would be considered transudative in nature. I suspect that this is related to his underlying cardiac dysfunction and subsequent pleural effusion. Recommend ongoing medical management per cardiology recommendations. 3. Pulmonary nodule CT imaging demonstrated a right lower lobe pulmonary nodule, which appears larger than 1 cm in size. The exact chronicity for this finding is not clear. The patient has a very remote smoking history, having quit completely in 1989. Recommend outpatient pulmonary follow-up after discharge, with plans to repeat chest imaging in 6 to 8 weeks. If this nodule persists at that time, would recommend tissue biopsy. This note was generated with [employer] dictation software. It may contain incorrect words, spelling, and punctuation that were not noted in checking the note before signing. Subjective Subjective The patient was seen and examined at the bedside this morning. Events from the last 24 hours have been reviewed. The patient is currently afebrile, hemodynamically stable and maintaining appropriate oxygen saturations on room air. The patient underwent successful ultrasound-guided thoracentesis of his right hemithorax with 900 mL of fluid removed yesterday. Creatinine has improved to 1.8. Objective Data Objective Data The patient's most recent lab work, culture data and imaging studies have all been personally reviewed. Surface echocardiogram demonstrated a mildly dilated LV with severe LV systolic dysfunction and an ejection fraction of 20%, along with stage I diastolic dysfunction. Vital Signs: Vital Signs Temp Pulse Resp BP Pulse Ox O2 Del Method FiO2 97 F L 60 14 117/70 97 Room Air 30 01/23/23 04:00 01/23/23 04:00 01/23/23 04:00 01/23/23 04:00 01/23/23 04:00 01/23/23 04:00 01/20/23 06:40 Oxygen Delivery Method Room Air Weight: 132 lb 7.965 oz Body Mass Index (BMI) 24.2 Intake & Output: Intake and Output for Last 24 Hours 01/21/23 01/22/23 01/23/23 23:59 23:59 23:59 Intake Total 409.32 / 426.02 166.61 / 166.61 Output Total 400 / 600 1710 / 1860 150 / 150 Balance 9.32 / -173.98 -1543.39 / -1693.39 -150 / -150 Lab / Micro Data Attestation: I reviewed the patient's lab results. 01/23/23 04:20 01/23/23 04:20 Labs: Laboratory Results - last 24 hr 01/20/23 12:46: Total T3 1.43 01/22/23 03:45: Hemoglobin A1c 6.0 H, Lactate Dehydrogenase 233 01/22/23 10:55: Urine Color Yellow, Urine Clarity Cloudy, Urine pH 5.0, Ur Specific [place] 1.020, Urine Protein 30 H, Urine Glucose (UA) 1000 H, Urine Ketones 5 H, Urine Occult Blood 250 H, Urine Nitrite Negative, Urine Bilirubin Negative, Urine Urobilinogen 1 H, Ur Leukocyte Esterase 25 H, Urine RBC 0-5 SEEN, Urine WBC 0 SEEN, Ur Squamous Epith Cells 0 SEEN, Amorphous Sediment 3+ URATE, Urine Bacteria 0 SEEN, Urine Mucus 0 SEEN, Ur Random Sodium 12, Urine Creatinine 230.00, Urine Urea Nitrogen 958 01/22/23 12:45: Fluid Source THORACENTESIS, Fluid Color YELLOW, Fluid Appearance CLEAR, Fluid WBC 0.624, Fluid RBC 885, Fluid Tot Cell Count 0.740, Fld Polynuclear WBCs # 0.133, Fld Polynuclear WBCs % 21.3, Fluid Mononuclear WBCs 0.491, Fld Mononuclear WBCs % 78.7, Fluid Neutrophils 14, Fluid Lymphocytes 32, Fluid Macrophages 53, Fld Mesothelial Cells 1, Fl Pathologist Comment May follow, Fluid Glucose 154 H, Fluid Total Protein 3.4, Fluid LDH 97, Fluid Comment 2 SEE COMMENT 01/22/23 17:41: POC Glucose 136 H 01/22/23 21:39: POC Glucose 75 01/23/23 04:20: WBC 7.9, RBC 5.02, Hgb 14.6, Hct 45.1, MCV 89.8, MCH 29.1, MCHC 32.4, RDW Std Deviation 42.1, RDW Coeff of Reece 12.7, Plt Count 159, MPV 11.4, Immature Gran % (Auto) 0.400, Neut % (Auto) 75.4 H, Lymph % (Auto) 14.3 L, [place] % (Auto) 7.7, Eos % (Auto) 1.8, Baso % (Auto) 0.4, Absolute Neuts (auto) 5.9, Absolute Lymphs (auto) 1.13, Nucleated RBC % 0, Sodium 141, Potassium 4.5, Chloride 108 H, Carbon Dioxide 26.0, Anion Gap 7, BUN 27 H, Creatinine 1.80 H, Estim Creat Clear Calc 23.59, Est GFR (MDRD) Af Amer 46 L, Est GFR (MDRD) Non-Af 38 L, BUN/Creatinine Ratio 15.0, Glucose 106, Calcium 7.6 L, Phosphorus 3.6, Magnesium 2.3, Total Bilirubin 2.00 H, Direct Bilirubin 0.37 H, AST 29, ALT 22, Alkaline Phosphatase 88, Total Protein 6.8, Albumin 3.3, Globulin 3.5, Albumin/Globulin Ratio 0.9 Micro: Microbiology 01/22/23 12:45 Fluid - Thoracentesis Fluid Gram Stain - Final 01/20/23 04:43 Blood Culture (Wb) #2 - Left Wrist Blood Culture - Preliminary No growth in 48 hours. 01/20/23 04:10 Blood Culture (Wb) - Left Wrist Blood Culture - Preliminary No growth in 48 hours. 01/20/23 04:00 Nasal Secretion SARS-CoV-2 & FLU Antigen (Rapid) - Final Radiography Diagnostic Testing: Radiology Impression Renal Ultrasound 01/22/23 07:12 IMPRESSION: 3.1 cm x 3.1 cm x 2.2 cm left renal cyst. Electronically Signed: Jacques Whitten MD at 11:13 EST , Chest CT 01/22/23 08:49 IMPRESSION: Moderate-sized bilateral pleural effusions with bibasilar atelectasis. 1.3 cm x 1.1 cm x 1.1 cm spiculated nodule seen in the posterior medial aspect of the right lower lobe. This is unchanged. Correlation with PET scan is recommended. Electronically Signed: Jacques Whitten MD at 10:25 EST , Chest X-Ray 01/22/23 12:55 IMPRESSION: No evidence of pneumothorax on the immediate post right thoracentesis examination. Electronically Signed: Jacques Whitten MD at 13:15 EST , Rhythm Strip Rhythm Strip: Sinus Rhythm Physical Exam Const alert and no apparent distress Constitutional Narrative: Sitting in bedside recliner. General Appearance: cooperative HEENT normocephalic and head/scalp atraumatic Eyes PERRL, EOMs intact bilaterally and conjunctivae normal Neck supple General: trachea midline Chest inspection of chest normal Resp Auscultation: diminished lung sounds Cardio regular rate and regular rhythm GI normal to inspection, nondistended, normoactive bowel sounds Extremity no clubbing, cyanosis or edema Skin no rashes or lesions noted Neuro CN's II-XII intact bilaterally, moves all extremities and no focal motor deficits Psych cooperative and affect normal Charges/Coding Visit Charges Inpatient E&M: 66018 Subs Hosp L2
[2023-01-23] MEDS: Aspirin E.C. 81 MG Tablet PO (08:00)
[2023-01-23] MEDS: Amiodarone 200 MG Tablet PO (08:00)
[2023-01-23] MEDS: Pantoprazole Sodium 40 MG Tablet PO (08:00)
[2023-01-23] MEDS: Potassium Chloride Oral Tablet 20 MEQ PO ×2 (08:00→17:10)
[2023-01-23] MEDS: Spironolactone 25 MG Tablet 12.5 MG PO (08:01)
[2023-01-23] MEDS: Enoxaparin 60 MG/0.6 ML Syringe SC (08:05)
[2023-01-23] MEDS: Clopidogrel Bisulfate 75 MG Tablet PO (08:06)
[2023-01-23] MEDS: Empagliflozin 10 MG Tablet PO (08:06)
[2023-01-23] MEDS: Carvedilol 3.125 MG TABLET PO ×2 (08:07→21:39)
--- NOTE | 2023-01-23 08:13 | PCM.PN.HOSP ---
Reason for Visit Reason for Visit: Shortness of breath Subjective Subjective Patient states that he is feeling better today. Is on room air at this time. Daughter is at the bedside and explained that really the last piece of the puzzle is a heart catheterization and we are waiting for cardiology to feel comfortable with regards to his renal function and exposing him to more contrast for cardiac catheterization. I was called later last evening as his urine output was low and p.o. intake was poor so we have given him 1 L slowly which has improved his renal function. Objective Data Objective Data Vital Signs: Vital Signs Temp Pulse Resp BP Pulse Ox O2 Del Method FiO2 97 F L 60 14 117/70 97 Room Air 30 01/23/23 04:00 01/23/23 04:00 01/23/23 04:00 01/23/23 04:00 01/23/23 04:00 01/23/23 04:00 01/20/23 06:40 Oxygen Delivery Method Room Air Weight: 60.1 kg Body Mass Index (BMI) 24.2 Intake & Output: Intake and Output for Last 24 Hours 01/21/23 01/22/23 01/23/23 23:59 23:59 23:59 Intake Total 409.32 / 426.02 166.61 / 166.61 Output Total 400 / 600 1710 / 1860 300 / 300 Balance 9.32 / -173.98 -1543.39 / -1693.39 -300 / -300 Lab / Micro Data 01/23/23 04:20 01/23/23 04:20 Labs: Laboratory Results - last 24 hr 01/20/23 12:46: Total T3 1.43 01/22/23 03:45: Hemoglobin A1c 6.0 H, Lactate Dehydrogenase 233 01/22/23 10:55: Urine Color Yellow, Urine Clarity Cloudy, Urine pH 5.0, Ur Specific [place] 1.020, Urine Protein 30 H, Urine Glucose (UA) 1000 H, Urine Ketones 5 H, Urine Occult Blood 250 H, Urine Nitrite Negative, Urine Bilirubin Negative, Urine Urobilinogen 1 H, Ur Leukocyte Esterase 25 H, Urine RBC 0-5 SEEN, Urine WBC 0 SEEN, Ur Squamous Epith Cells 0 SEEN, Amorphous Sediment 3+ URATE, Urine Bacteria 0 SEEN, Urine Mucus 0 SEEN, Ur Random Sodium 12, Urine Creatinine 230.00, Urine Urea Nitrogen 958 01/22/23 12:45: Fluid Source THORACENTESIS, Fluid Color YELLOW, Fluid Appearance CLEAR, Fluid WBC 0.624, Fluid RBC 885, Fluid Tot Cell Count 0.740, Fld Polynuclear WBCs # 0.133, Fld Polynuclear WBCs % 21.3, Fluid Mononuclear WBCs 0.491, Fld Mononuclear WBCs % 78.7, Fluid Neutrophils 14, Fluid Lymphocytes 32, Fluid Macrophages 53, Fld Mesothelial Cells 1, Fl Pathologist Comment May follow, Fluid Glucose 154 H, Fluid Total Protein 3.4, Fluid LDH 97, Fluid Comment 2 SEE COMMENT 01/22/23 17:41: POC Glucose 136 H 01/22/23 21:39: POC Glucose 75 01/23/23 04:20: WBC 7.9, RBC 5.02, Hgb 14.6, Hct 45.1, MCV 89.8, MCH 29.1, MCHC 32.4, RDW Std Deviation 42.1, RDW Coeff of Reece 12.7, Plt Count 159, MPV 11.4, Immature Gran % (Auto) 0.400, Neut % (Auto) 75.4 H, Lymph % (Auto) 14.3 L, Power % (Auto) 7.7, Eos % (Auto) 1.8, Baso % (Auto) 0.4, Absolute Neuts (auto) 5.9, Absolute Lymphs (auto) 1.13, Nucleated RBC % 0, Sodium 141, Potassium 4.5, Chloride 108 H, Carbon Dioxide 26.0, Anion Gap 7, BUN 27 H, Creatinine 1.80 H, Estim Creat Clear Calc 23.59, Est GFR (MDRD) Af Amer 46 L, Est GFR (MDRD) Non-Af 38 L, BUN/Creatinine Ratio 15.0, Glucose 106, Calcium 7.6 L, Phosphorus 3.6, Magnesium 2.3, Total Bilirubin 2.00 H, Direct Bilirubin 0.37 H, AST 29, ALT 22, Alkaline Phosphatase 88, Total Protein 6.8, Albumin 3.3, Globulin 3.5, Albumin/Globulin Ratio 0.9 Micro: Microbiology 01/22/23 12:45 Fluid - Thoracentesis Fluid Gram Stain - Final 01/20/23 04:43 Blood Culture (Wb) #2 - Left Wrist Blood Culture - Preliminary No growth in 48 hours. 01/20/23 04:10 Blood Culture (Wb) - Left Wrist Blood Culture - Preliminary No growth in 48 hours. 01/20/23 04:00 Nasal Secretion SARS-CoV-2 & FLU Antigen (Rapid) - Final Radiography Diagnostic Testing: Radiology Impression Renal Ultrasound 01/22/23 07:12 IMPRESSION: 3.1 cm x 3.1 cm x 2.2 cm left renal cyst. Electronically Signed: Jacques Whitten MD at 11:13 EST , Chest CT 01/22/23 08:49 IMPRESSION: Moderate-sized bilateral pleural effusions with bibasilar atelectasis. 1.3 cm x 1.1 cm x 1.1 cm spiculated nodule seen in the posterior medial aspect of the right lower lobe. This is unchanged. Correlation with PET scan is recommended. Electronically Signed: Jacques Whitten MD at 10:25 EST , Chest X-Ray 01/22/23 12:55 IMPRESSION: No evidence of pneumothorax on the immediate post right thoracentesis examination. Electronically Signed: Jacques Whitten MD at 13:15 EST , Rhythm Strip Rhythm Strip: Sinus Rhythm Physical Exam Const alert, no apparent distress, average body habitus, healthy appearing and well nourished Constitutional Narrative: mild confusion, Elderly white male, appears comfortable, non-toxic, currently on RA, daughter is at the bedside General Appearance: cooperative HEENT normocephalic, head/scalp atraumatic, moist oral mucous membranes and oropharynx normal HEENT Narrative: Dentition is poor, Mallampati is 2, no Resp normal respiratory effort, no retractions, no use of accessory muscles and clear to auscultation bilaterally Resp Narrative: Improved aeration in bilateral bases most notably at the right base Auscultation: crackles diffuse; Negative for rales, rhonchi or wheezes Cardio regular rate, regular rhythm, S1 normal heart sound, S2 normal heart sound, no murmurs, no rub, no gallops and no clicks Cardio Narrative: Heart rate and rhythm is irregular GI normal to inspection, nondistended, normoactive bowel sounds, soft to palpation and non-tender Extremity no clubbing, cyanosis or edema Extremity Narrative: Pedal pulses are 2+, radial pulse is are 2+ Neuro moves all extremities and no focal motor deficits Neuro Narrative: Seems to have some mild confusion, language is somewhat of a barrier Sensorium / Orientation: awake, alert and oriented to person Speech: speech normal Psych affect normal Psych Narrative: Very pleasant, eye contact is good, patient interacts appropriately Assessment & Plan Assessment/Plan (1) Acute hypoxic respiratory failure: (2) Atrial fibrillation: (3) Congestive heart failure with left ventricular systolic dysfunction (LVSD): (4) Pleural effusion, bilateral: (5) Lactic acidosis: (6) Non-ST elevation [place] (NSTEMI): (7) Acute kidney injury: (8) Hyperbilirubinemia: PLAN: Plan Acute hypoxic respiratory failure secondary to decompensated heart failure with reduced ejection fraction/bilateral pleural effusions -Patient on presentation had hypoxia on room air with an oxygen saturation of 86% and while in the emergency department required rescue BiPAP due to acute hypoxia and shortness of breath related to heart failure -Diuretics on hold as his urine studies appear to be prerenal due to dehydration -Continue strict I's and O's -Continue sodium and fluid restricted diet -Continue Daily weights -Patient has been weaned to room air at this time -Thoracentesis done yesterday with removal of 910 cc of transudative fluid -Will need ambulatory pulse ox prior to discharge NSTEMI -Type unknown -Awaiting cardiology input for timing of cardiac catheterization with regards to his renal function -Continue therapy as prescribed by cardiology -Continue full anticoagulation -Cardiology following-appreciate input Cardiomyopathy-type unknown at this time -EF found between 20 and 25% on echocardiogram -Previous echo not available -Continue carvedilol -Continue Aldactone -Lasix on hold -Hold HEIKE inhibitor due to renal function -Continue Jardiance--> will need to discontinue if GFR estimate drops below 30 -Currently 38 -Awaiting cardiac catheterization to rule out ischemic cardiomyopathy -Timing per cardiology with regards to renal function ADAN -Suspect there may be a component of CKD however baseline is unknown -Creatinine on admission was 1.6 -Renal function yesterday was 2.15 and down to 1.8 today with gentle hydration -Retroperitoneal ultrasound shows only a left renal cyst that is 3.1 x 3.1 x 2.2 cm -Hold nephrotoxins as able -Renally dose medications -Fe urea was indicative of prerenal source most likely volume depletion as patient has responded to gentle hydration -Patient is currently receiving 1 L at 50 cc/h -Will need to be careful with IV fluids however as he is severely reduced ejection fraction -Nephrology is following Atrial fibrillation -Has converted back to normal sinus rhythm -Patient fully anticoagulated with Lovenox subcu -Continue amiodarone 200 mg daily -Continue carvedilol -Will need to start apixaban after cardiac catheterization is completed -Continue to monitor on telemetry -TSH is within normal limits Large bilateral pleural effusions -Thoracentesis of the right performed yesterday with 910 cc of fluid removed -Transudative per light criteria -Likely related to heart failure Pulmonary nodule -Will need outpatient follow-up for repeat imaging and if still present will need biopsy per discussion with pulmonary medicine -Will schedule outpatient follow-up prior to discharge Hyperbilirubinemia -Trending down -2.6-2.0 today -Suspect related to passive congestion -No need further repeat GERD -Continue Protonix 40 mg p.o. daily Mild cognitive impairment -Daughter reported previously that he is confused sometimes -No confirmed diagnosis of dementia -Monitor clinically -I think this precludes patient from being able to leave AMA DVT prophylaxis -Full anticoagulation with Lovenox CODE STATUS -Documented as full code however unverified Charges/Coding Visit Charges Inpatient E&M: 21973 Subs Hosp L2
[2023-01-23 09:09] VITALS: BP 104/76; PULSE 61; RESP 13; TEMP 36.3; O2SAT 95
[2023-01-23 10:00] VITALS: BP 110/76; PULSE 72; RESP 16
--- NOTE | 2023-01-23 10:42 | PN.RENAL_ITS ---
Subjective Subjective Sitting in chair. Reports breathing better today and feeling better overall. and daughter at bedside. More talkative today. Objective Data Objective Data Vital Signs: Vital Signs Temp Pulse Resp BP Pulse Ox O2 Del Method FiO2 97.4 F L 61 13 104/76 95 Room Air 30 01/23/23 09:09 01/23/23 09:09 01/23/23 09:09 01/23/23 09:09 01/23/23 09:09 01/23/23 09:09 01/20/23 06:40 Oxygen Delivery Method Room Air Weight: 60.1 kg Body Mass Index (BMI) 24.2 Intake & Output: Intake and Output for Last 24 Hours 01/21/23 01/22/23 01/23/23 23:59 23:59 23:59 Intake Total 409.32 / 426.02 166.61 / 166.61 Output Total 400 / 600 1710 / 1860 300 / 300 Balance 9.32 / -173.98 -1543.39 / -1693.39 -300 / -300 Lab / Micro Data 01/23/23 04:20 01/23/23 04:20 Labs: Laboratory Results - last 24 hr 01/22/23 03:45: Hemoglobin A1c 6.0 H, Lactate Dehydrogenase 233 01/22/23 10:55: Urine Color Yellow, Urine Clarity Cloudy, Urine pH 5.0, Ur Specific [place] 1.020, Urine Protein 30 H, Urine Glucose (UA) 1000 H, Urine Ketones 5 H, Urine Occult Blood 250 H, Urine Nitrite Negative, Urine Bilirubin Negative, Urine Urobilinogen 1 H, Ur Leukocyte Esterase 25 H, Urine RBC 0-5 SEEN, Urine WBC 0 SEEN, Ur Squamous Epith Cells 0 SEEN, Amorphous Sediment 3+ URATE, Urine Bacteria 0 SEEN, Urine Mucus 0 SEEN, Ur Random Sodium 12, Urine Creatinine 230.00, Urine Urea Nitrogen 958 01/22/23 12:45: Fluid Source THORACENTESIS, Fluid Color YELLOW, Fluid Appearance CLEAR, Fluid WBC 0.624, Fluid RBC 885, Fluid Tot Cell Count 0.740, Fld Polynuclear WBCs # 0.133, Fld Polynuclear WBCs % 21.3, Fluid Mononuclear WBCs 0.491, Fld Mononuclear WBCs % 78.7, Fluid Neutrophils 14, Fluid Lymphocytes 32, Fluid Macrophages 53, Fld Mesothelial Cells 1, Fl Pathologist Comment May follow, Fluid Glucose 154 H, Fluid Total Protein 3.4, Fluid LDH 97, Fluid Comment 2 SEE COMMENT 01/22/23 17:41: POC Glucose 136 H 01/22/23 21:39: POC Glucose 75 01/23/23 04:20: WBC 7.9, RBC 5.02, Hgb 14.6, Hct 45.1, MCV 89.8, MCH 29.1, MCHC 32.4, RDW Std Deviation 42.1, RDW Coeff of [place]ece 12.7, Plt Count 159, MPV 11.4, Immature Gran % (Auto) 0.400, Neut % (Auto) 75.4 H, Lymph % (Auto) 14.3 L, [place] % (Auto) 7.7, Eos % (Auto) 1.8, Baso % (Auto) 0.4, Absolute Neuts (auto) 5.9, Absolute Lymphs (auto) 1.13, Nucleated RBC % 0, Sodium 141, Potassium 4.5, Chloride 108 H, Carbon Dioxide 26.0, Anion Gap 7, BUN 27 H, Creatinine 1.80 H, Estim Creat Clear Calc 23.59, Est GFR (MDRD) Af Amer 46 L, Est GFR (MDRD) Non-Af 38 L, BUN/Creatinine Ratio 15.0, Glucose 106, Calcium 7.6 L, Phosphorus 3.6, Magnesium 2.3, Total Bilirubin 2.00 H, Direct Bilirubin 0.37 H, AST 29, ALT 22, Alkaline Phosphatase 88, Total Protein 6.8, Albumin 3.3, Globulin 3.5, Albumin/ Globulin Ratio 0.9 Micro: Microbiology 01/22/23 12:45 Fluid - Thoracentesis Fluid Gram Stain - Final 01/20/23 04:43 Blood Culture (Wb) #2 - Left Wrist Blood Culture - Preliminary No growth in 48 hours. 01/20/23 04:10 Blood Culture (Wb) - Left Wrist Blood Culture - Preliminary No growth in 48 hours. 01/20/23 04:00 Nasal Secretion SARS-CoV-2 & FLU Antigen (Rapid) - Final Radiography Diagnostic Testing: Radiology Impression Renal Ultrasound 01/22/23 07:12 IMPRESSION: 3.1 cm x 3.1 cm x 2.2 cm left renal cyst. Electronically Signed: Jacques Whitten MD at 11:13 EST , Chest X-Ray 01/22/23 12:55 IMPRESSION: No evidence of pneumothorax on the immediate post right thoracentesis examination. Electronically Signed: Jacques Whittne MD at 13:15 EST , Rhythm Strip Rhythm Strip: Sinus Rhythm Physical Exam Narrative Alert and oriented, no apparent distress S1, S2, rhythm irregular, rate controlled Lung sounds clear anteriorly and posteriorly. No wheezes, rhonchi or rales noted Abdomen soft, nontender No pitting edema External catheter with clear yellow urine in canister Assessment & Plan Assessment/Plan (1) Acute kidney injury: (2) Pleural effusion, bilateral: (3) Congestive heart failure with left ventricular systolic dysfunction (LVSD): (4) Atrial fibrillation: PLAN: Plan This is an 82-year-old male with past medical history significant for diabetes mellitus type 2, hypertension, dementia who presented to emergency room on 01/20 with complaints of shortness of breath. Also noted to be significantly hyperte nsive upon presentation. Blood pressures did improve in the emergency room, also in the emergency room patient was started on gentle IV fluids but became significantly dyspneic and again hypertensive, placed on BiPAP and given IV Lasix again with improvement. Nephrology consulted in view of rising serum creatinine. 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 -ADAN superimposed on possible CKD stage III; on November 24, 2022 serum creatinine 1.4 mg/dL. On admission serum creatinine was 1.6, creatinine peaked 2.15 mg/dL yesterday and today creatinine improved to 1.80. Patient did not receive diuretics yesterday, he was started on gentle IV fluids last evening. Pre-renal ADAN quite possibly from overdiuresis however there may be component from hypoperfusion from A-fib, hypotension and possible component from contrast as patient received CT with contrast on admission. Patient did have some urinary retention initially on admission Long was placed but then Long was removed due to leaking around tubing. Renal ultrasound no hydronephrosis. UA no RBC, 30 protein, 250 occult blood, urine glucose 1000. UPCR pending. - pleural effusion status post thoracentesis with around 900 mL fluid removed - Echo: Severe LV systolic dysfunction with apical akinesis, EF 20-25%, stage I diastolic dysfunction, mildly dilated left ventricle, mild mitral valve insufficiency, mild aortic valve insufficiency. Cardiology following as patient noted to have detectable troponin, A-fib. Possible plan for heart catheterization. Again today discussed with patient, daughter and possible risk contrast could have on kidney function. Both voiced understanding, questions answered. - discussed nephrology plan with Dr. Mario.
[2023-01-23 12:28] LABS: Bedside Glucose 99 mg/dL (74-106)
[2023-01-23 14:00] VITALS: PULSE 66; RESP 18
[2023-01-23 15:04] LABS: Protein, Urine (Random) 22.8 mg/dL (<11.9); Protein:Creat Ratio 119 mg/g CRE (0-200)
[2023-01-23 15:33] VITALS: BP 120/78
[2023-01-23 16:01] LABS: Bedside Glucose 81 mg/dL (74-106)
[2023-01-23 21:36] VITALS: BP 131/82; PULSE 70; RESP 18; TEMP 36.7; O2SAT 96
[2023-01-23] MEDS: DiphenhydrAMINE 25 MG Capsule PO (21:38)
[2023-01-23] MEDS: Atorvastatin Calcium 20 MG Tablet PO (21:39)
[2023-01-24 04:16] VITALS: BMI 23.5
[2023-01-24 04:20] VITALS: BP 136/90; PULSE 65; RESP 18; TEMP 36.7; O2SAT 95
[2023-01-24] MEDS: Clopidogrel Bisulfate 75 MG Tablet PO (04:36)
[2023-01-24 05:07] LABS: ALB/GLOB Ratio 0.9 RATIO (0.9-2.4); AST(SGOT) 33 U/L (15-37); Alanine Aminotransfer ALT/SGPT 29 U/L (16-61); Albumin, Serum 3.4 g/dL (3.2-5.0); Alkaline Phosphatase 94 U/L (45-117); Anion Gap 6 (5-15); BUN 24 mg/dL (7-18); BUN/Creat Ratio 14.2 RATIO (10-20); Calcium,Total 7.6 mg/dL (8.5-10.1); Chloride 109 mmol/L (98-107); Creatinine, Serum 1.69 mg/dL (0.70-1.30); EST Glomerular Filtration Rate 41 mL/min (>60); Est Glom Filt Rate - Afr Amer 50 mL/min (>60); Estimated Creatinine Clearance 25.13 ml/min; Globulin 3.6 g/dL (2.2-4.2); Glucose 118 mg/dL (74-106); Potassium 4.4 mmol/L (3.5-5.1); Sodium Level 140 mmol/L (136-145)
--- NOTE | 2023-01-24 05:55 | EKG12_ITS ---
Test Reason : AM EKG Blood Pressure : / mmHG Vent. Rate : 069 BPM Atrial Rate : 069 BPM P-R Int : 166 ms QRS Dur : 078 ms QT Int : 398 ms P-R-T Axes : 067 059 078 degrees QTc Int : 426 ms Normal sinus rhythm Anteroseptal infarct (cited on or before 20-JAN-2023) Abnormal ECG When compared with ECG of 20-JAN-2023 17:15, Sinus rhythm has replaced Atrial fibrillation Vent. rate has decreased BY 81 BPM Serial changes of evolving Anteroseptal infarct Present Confirmed by DERREK RESENDIZ, DEBO ([id number]), news copy editor MCKINLEY DOUGHERTY ([id number]) on 01/29/2023 12:58:13 PM Referred By: JOELLE Confirmed By:TRISTAN ANGLIN MD
[2023-01-24 10:18] VITALS: BP 118/72; PULSE 73; RESP 17; TEMP 36.4; O2SAT 100
[2023-01-24] MEDS: Carvedilol 3.125 MG TABLET PO (10:31)
[2023-01-24] MEDS: Spironolactone 25 MG Tablet 12.5 MG PO (10:31)
[2023-01-24] MEDS: Empagliflozin 10 MG Tablet PO (10:31)
[2023-01-24] MEDS: Pantoprazole Sodium 40 MG Tablet PO (10:31)
[2023-01-24] MEDS: Potassium Chloride Oral Tablet 20 MEQ PO (10:33)
[2023-01-24] MEDS: Aspirin E.C. 81 MG Tablet PO (10:33)
[2023-01-24] MEDS: Amiodarone 200 MG Tablet PO (10:33)
[2023-01-24] MEDS: Furosemide 40 MG Tablet PO (10:34)
[2023-01-24] MEDS: Enoxaparin 60 MG/0.6 ML Syringe SC (10:34)
--- NOTE | 2023-01-24 11:12 | CASEMGMT ---
KIMMY CM NOTE: Per Dr Mario, pt needs to f/u with narcotics detective in 2 wks and frameman in a month. Maylin, secretary [employer], aware and will work on getting appts for pt. Allen VÁZQUEZ RN CM
[2023-01-24 12:12] VITALS: BP 119/70; PULSE 62
[2023-01-24] MEDS: Nitroglycerin Oint 1 INCH PACKET TD (12:12)
[2023-01-24 12:20] VITALS: BP 126/74; PULSE 70; RESP 17; TEMP 36.2; O2SAT 96
[2023-01-24 12:41] LABS: Bedside Glucose 169 mg/dL (74-106)
[2023-01-24 13:00] VITALS: BP 90/46; PULSE 78; RESP 17; TEMP 36.6; O2SAT 95
[2023-01-24 13:20] VITALS: O2SAT 95; O2SAT 96
--- NOTE | 2023-01-24 13:42 | STRESSREP_ITS ---
Stress Test Report Date:01/23/23 Procedure: Pharmacologic stress nuclear imaging study Indications: CHF Consent: Per the patient Procedure: The patient underwent pharmacologic (Regadenoson) evaluation with a peak heart rate of 81 beats per minute (59%predicted maximal heart rate) and a peak blood pressure of 136/90 mmHg. The baseline ECG demonstrated normal sinus rhythm, old anterior infarction. EKG during lexiscan infusion revealed no significant ischemic changes. EKG post infusion revealed no significant ischemic changes [There were no cardiac dysrhythmias pretest, during pharmacologic infusion, or recovery]. [There was no complaint of chest discomfort during pharmacologic infusion or recovery]. The examination was discontinued secondary to completion of protocol. Impression: 1. Lexiscan stress test test is negative for Lexiscan infusion induced EKG changes of ischemia. 2. Lexiscan stress test test is negative for Lexiscan infusion induced chest pain. 3. Results of the nuclear portion of the test is as below Myocardial perfusion imaging study: Technique: The patient was injected with 11.1 millicuries of technetium 99m Cardiolite and subsequently rest SPECT Cardiolite nuclear imaging was obtained in the horizontal long, vertical long, and short axis views. The patient underwent pharmacologic [Regadenoson 0.4mg] evaluation. Please see above for details. The patient was injected with 33.6 millicuries of technetium 99m Cardiolite and subsequently stress SPECT Cardiolite nuclear imaging was obtained in the horizontal long, vertical long, and short axis views. A gated Cardiolite study at peak stress was obtained. Interpretation: Rest and stress SPECT Cardiolite nuclear imaging status post realignment, normalization, and attenuation correction demonstrate absent radioisotope uptake in the apex and distal anterior wall on both the rest and stress images. There is also decreased radioisotope uptake in the septum on both the stress and rest images. There is no significant reversibility. Gated images reveal[hypokinesis of the anterior wall, apex and septum. These findings are suggestive of prior infarction involving the anterior wall, apex and septum. There is no significant reversible ischemia]. The reported LVEF is 34%. Impression: 1. 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 No significant reversibility suggestive of ischemia. 2. Estimated ejection fraction is [34%]. This note was generated with [employer] software. It may contain incorrect words, spelling, and punctuation that were not noted in checking the note before signing.
--- NOTE | 2023-01-24 14:18 | PCM.PN.REN ---
Subjective Subjective Following for ADAN on probable CKD Resting quietly. No overnight events. Daughter at bedside. Possible discharge to home today. Objective Data Objective Data Vital Signs: Vital Signs Temp Pulse Resp BP Pulse Ox O2 Del Method FiO2 97.2 F L 70 17 126/74 H 96 Room Air 30 01/24/23 12:20 01/24/23 12:20 01/24/23 12:20 01/24/23 12:20 01/24/23 13:20 01/24/23 12:20 01/20/23 06:40 Oxygen Delivery Method Room Air Weight: 58.3 kg Body Mass Index (BMI) 23.5 Intake & Output: Intake and Output for Last 24 Hours 01/22/23 01/23/23 01/24/23 23:59 23:59 23:59 Intake Total 166.61 / 166.61 1200 / 1400 580 / 580 Output Total 1710 / 1860 450 / 750 700 / 700 Balance -1543.39 / -1693.39 750 / 650 -120 / -120 Lab / Micro Data 01/23/23 04:20 01/24/23 04:30 Labs: Laboratory Results - last 24 hr 01/22/23 12:45: Miscellaneous Cytology SEE PATHOLOGY REPORT 01/23/23 14:30: U Random Total Protein 22.8 H, Urine Creatinine 191.00, Protein/Creatinin Ratio 119 01/23/23 15:43: POC Glucose 81 01/24/23 04:30: Sodium 140, Potassium 4.4, Chloride 109 H, Carbon Dioxide 25.0, Anion Gap 6, BUN 24 H, Creatinine 1.69 H, Estim Creat Clear Calc 25.13, Est GFR (MDRD) Af Amer 50 L, Est GFR (MDRD) Non-Af 41 L, BUN/Creatinine Ratio 14.2, Glucose 118 H, Calcium 7.6 L, Total Bilirubin 2.00 H, AST 33, ALT 29, Alkaline Phosphatase 94, Total Protein 7.0, Albumin 3.4, Globulin 3.6, Albumin/Globulin Ratio 0.9 01/24/23 12:09: POC Glucose 169 H Micro: Microbiology 01/22/23 12:45 Fluid - Thoracentesis Fluid Gram Stain - Final 01/22/23 12:45 Fluid - Thoracentesis Fluid Body Fluid Culture - Preliminary No growth-Final to follow 01/20/23 04:43 Blood Culture (Wb) #2 - Left Wrist Blood Culture - Preliminary No growth in 48 hours. 01/20/23 04:10 Blood Culture (Wb) - Left Wrist Blood Culture - Preliminary No growth in 48 hours. 01/20/23 04:00 Nasal Secretion SARS-CoV-2 & FLU Antigen (Rapid) - Final Rhythm Strip Rhythm Strip: Sinus Rhythm Physical Exam Narrative Alert and oriented, no apparent distress S1, S2, rhythm irregular, rate controlled Lung sounds clear anteriorly and posteriorly. No wheezes, rhonchi or rales noted Abdomen soft, nontender No pitting edema Assessment & Plan Assessment/Plan (1) Acute kidney injury: (2) Pleural effusion, bilateral: (3) Congestive heart failure with left ventricular systolic dysfunction (LVSD): (4) Atrial fibrillation: PLAN: Plan This is an 82-year-old male with past medical history significant for diabetes mellitus type 2, hypertension, dementia who presented to emergency room on 01/20 with complaints of shortness of breath. Also noted to be significantly hypertensive upon presentation. Blood pressures did improve in the emergency room, also in the emergency room patient was started on gentle IV fluids but became significantly dyspneic and again hypertensive, placed on BiPAP and given IV Lasix again with improvement. Nephrology consulted in view of rising serum creatinine. 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 -ADAN superimposed on possible CKD stage III; on November 24, 2022 serum creatinine 1.4 mg/dL. On admission serum creatinine was 1.6, creatinine peaked 2.15 mg/dL and today creatinine improved to 1.69. With holding diuretics and gentle IV fluids 1 L renal function improved. Pre-renal ADAN quite possibly from overdiuresis however there may be component from hypoperfusion from A-fib, hypotension and possible component from contrast as patient received CT with contrast on admission. Patient did have some urinary retention initially on admission Long was placed but then Long was removed due to leaking around tubing. Renal ultrasound no hydronephrosis. UA no RBC, 30 protein, 250 occult blood, urine glucose 1000. UPCR 119mg/g. - pleural effusion status post thoracentesis with around 900 mL fluid removed. Pulmonary nodule and to follow-up outpatient for this. - Echo: Severe LV systolic dysfunction with apical akinesis, EF 20-25%, stage I diastolic dysfunction, mildly dilated left ventricle, mild mitral valve insufficiency, mild aortic valve insufficiency. Cardiology following as patient noted to have detectable troponin, A-fib. Stress test: Evidence of prior anterior, apical and septal infarction, no significant reversibility suggestive of ischemia, EF 34%. To continue follow-up with cardiology. Started on Lasix 40 mg daily - discussed nephrology plan with Dr. Mario. Will arrange for hospital follow-up in [place] office.
--- NOTE | 2023-01-24 14:56 | PCM.DC.SUM ---
Providers Date of Admission: 01/20/23 Date of Discharge: 01/24/23 Primary Care Physician: Dr. Mo Lozano MD Consultations 01/20/23 12:30 Consult: Cardiology Routine Consulting Provider: Hoda Posey Reason for Consult: Cardiomyopathy EMERGENT Consult: No Notified: Yes Date Notified: 01/20/23 Time Notified: 12:30 Method of Notification: Verbal Method of Consult:: In-Person 01/22/23 09:07 Consult: Nephrology Routine Consulting Provider: Agueda Warren Reason for Consult: ADAN EMERGENT Consult: No Notified: Yes Date Notified: 01/22/23 Time Notified: 09:07 Method of Notification: Answering Service 01/22/23 11:53 Consult: Manager Utilities / Pulmonary Medicine Routine Consulting Provider: Pulmonary Medicine [facility] Reason for Consult: effusion EMERGENT Consult: No Notified: Yes Date Notified: 01/22/23 Time Notified: 11:53 Method of Notification: Verbal Reason For Visit: HYPERTENSIVE EMERGENCY Diagnosis Discharge Diagnosis (1) Acute kidney injury: Status: Acute Code(s): N17.9 - Acute kidney failure, unspecified (2) Pleural effusion, bilateral: Status: Acute Code(s): J90 - Pleural effusion, not elsewhere classified (3) Congestive heart failure with left ventricular systolic dysfunction (LVSD): Status: Acute Code(s): I50.20 - Unspecified systolic (congestive) heart failure (4) Atrial fibrillation: Status: Acute Code(s): I48.91 - Unspecified atrial fibrillation Medications at Discharge Home Medications amiodarone 200 mg tablet 200 mg PO DAILYCM #30 tabs 01/24/23 apixaban 2.5 mg tablet (Eliquis) 2.5 mg PO BID #60 tabs 01/24/23 aspirin 81 mg tablet,delayed release 81 mg PO BREAKFAST #1 TAB 01/24/23 atorvastatin 20 mg tablet 20 mg PO QHS #30 tabs 01/24/23 carvedilol 3.125 mg tablet 3.125 mg PO BID #60 tabs 01/24/23 empagliflozin 10 mg tablet (Jardiance) 10 mg PO DAILY #30 tabs 01/24/23 furosemide 40 mg tablet 20 mg (1/2 x 40 mg) PO DAILY #15 tabs 01/24/23 lisinopril 5 mg tablet 2.5 mg (1/2 x 5 mg) PO DAILY #15 tabs 01/24/23 spironolactone 25 mg tablet 12.5 mg (1/2 x 25 mg) PO DAILY #15 tabs 01/24/23 Hospital Course Procedures 2-D Echocardiogram, EKG, Nuclear stress test, Thoracentesis and - (Renal ultrasound/CTA chest/chest x-ray) Summary of Care Provided Minutes Spent on Discharge: 45 Hospital Course: Mr. Dawson is an 82-year-old male who presented to the emergency department at [facility] on 01/20/2023 complaining of acute onset shortness of breath that started about 3 hours prior to presentation. He was noted to have severely elevated blood pressure at the time of presentation with systolics greater than 200. Without treatment, his blood pressure improve dramatically and he did experience improvement in his shortness of breath with the nebulizer treatment. A CTA of his chest was performed fusions with no PE. The effusions were quite large. His hemoglobin was found to be 16.5, D-dimer was 1.2, PaO2 on his ABG was 65. His serum creatinine was 1.6 and his lactic acid was 2.3. His initial troponin was 204. In the emergency department he was started on IV fluids at 100 cc an hour but he had a similar episode as to his experience or on presentation with acute onset worsening shortness of breath and acute desaturation with bilateral rales and was started on BiPAP and given IV Lasix. Oxygen saturations improved with this. His blood pressure at that time was 180/110. It was felt most likely this was related to hypertensive emergency and flash pulmonary edema. He was admitted to the ICU. An echocardiogram was performed on 01/20/2023 that demonstrated a mildly dilated LV with stage I diastolic dysfunction and severe LV systolic dysfunction with apical akinesis and an estimated EF of 20 to 25%. There was no echo for comparison and he had not been on any previous medications for heart failure. He was started on goal-directed therapy and was maintained on full dose low molecular weight heparin for his troponin elevation as there was concern that an NSTEMI was the etiology for his depressed EF. He was noted to go in atrial fibrillation on the evening of 03/23/2022 with a heart rate between 115 and 160. He was placed on a beta-pelon and given 1 dose of IV digoxin. Unfortunately, he remained in atrial fibrillation by the morning of 01/21/2023 and he was started on amiodarone drip. Cardiology was following the patient and eventually transition him from an amiodarone drip to amiodarone 200 mg daily and he converted into normal sinus rhythm. At discharge she was transition from therapeutic Lovenox to Eliquis 2.5 mg p.o. twice daily with a [id number] score of 6. With regards to his pleural effusions he was taken for thoracentesis and a right thoracentesis was performed with 910 cc of fluid removal. We were able to transition him to room area. This was transudative per lights criteria and cultures were unremarkable. Repeat CT of the chest imaging showed a pulmonary nodule that will need outpatient follow-up with pulmonary medicine and this was set up at time of discharge. With diuresis, he developed some ADAN. Retroperitoneal ultrasound showed only a left renal cyst that was 3.1 x 3.1 x 2.2 cm. Nephrology was consulted. Fe urea was obtained and indicated prerenal source and he was gently rehydrated with improvement in his serum creatinine. Cardiac catheterization was deferred due to his chronic renal disease and a stress test was obtained which found no reversible ischemia and cardiology plans on following up as an outpatient for ongoing care. It is expected that his baseline serum creatinine runs between 1.4 and 1.6. During his hospital course he was started on aspirin 81 mg daily, lisinopril 2.5 mg daily, Coreg 3.125 mg p.o. twice daily, amiodarone 200 mg p.o. daily, Jardiance 10 mg daily, Aldactone 12.5 mg daily, Lasix 20 mg daily, and Eliquis 2.5 mg daily, prescriptions were sent to his local pharmacy. Follow-up was made with cardiology, pulmonary medicine, and nephrology will call him to schedule a follow-up. Ambulatory pulse ox was done prior to discharge and the patient was satting 95% at rest on room air at 94% with exertion on room air. He was able to be discharged home in stable condition on 01/24/2023. I have advised he and his daughter to obtain a basic metabolic profile to be done in the next 5 to 7 days to reassess his renal function and electrolytes with all the new medication changes. He should follow-up with his primary care physician within the next 1 to 2 weeks as availability allows. Discharge diagnoses: Acute hypoxic respiratory failure-resolved Decompensated heart failure with reduced ejection fraction-resolved bilateral pleural effusions-resolved NSTEMI-type unknown Cardiomyopathy-type unknown CKD stage IIIb ADAN-resolved Atrial fibrillation Pleural effusions GERD Mild cognitive impairment [id number] A1c was 6.0 Physical Exam Const alert, no apparent distress, average body habitus, healthy appearing and well nourished Constitutional Narrative: mild confusion, Elderly white male, appears comfortable, non-toxic, remains on RA, daughter is at the bedside General Appearance: cooperative, comfortable, well kempt and well developed Exam Limitations: other limitations HEENT normocephalic, head/scalp atraumatic, hearing grossly normal bilaterally, moist oral mucous membranes and oropharynx normal HEENT Narrative: Dentition is poor, Mallampati is 2, no thrush Eyes PERRL, EOMs intact bilaterally and conjunctivae normal Eyes Narrative: No scleral icterus Neck no lymphadenopathy, supple, no JVD, thyroid normal and no carotid bruits Neck Narrative: Trachea midline, no thyroid enlargement Resp normal respiratory effort, no retractions, no use of accessory muscles and clear to auscultation bilaterally Auscultation: Negative for crackles, rhonchi or wheezes Cardio regular rate, regular rhythm, S1 normal heart sound, S2 normal heart sound, no murmurs, no rub, no gallops and no clicks GI normal to inspection, nondistended, normoactive bowel sounds, soft to palpation and non-tender Extremity no clubbing, cyanosis or edema Extremity Narrative: Pedal pulses are 2+, radial pulse is are 2+ Skin no rashes or lesions noted, no wounds, skin turgor normal and no jaundice Neuro oriented x3, moves all extremities and no focal motor deficits Neuro Narrative: Seems to have some mild confusion, language is somewhat of a barrier Sensorium / Orientation: awake, alert, oriented to person and oriented to place Speech: speech normal Psych affect normal Psych Narrative: Very pleasant, eye contact is good, patient interacts appropriately, patient is very pleased that he is able to go home Weight / BMI Weight Weight: 58.3 kg Body Mass Index (BMI) 23.5 ABG / Lab / Microbiology Data 01/23/23 04:20 01/24/23 04:30 Laboratory: Laboratory Results - last 24 hr 01/22/23 12:45: Miscellaneous Cytology SEE PATHOLOGY REPORT 01/23/23 14:30: U Random Total Protein 22.8 H, Urine Creatinine 191.00, Protein/Creatinin Ratio 119 01/23/23 15:43: POC Glucose 81 01/24/23 04:30: Sodium 140, Potassium 4.4, Chloride 109 H, Carbon Dioxide 25.0, Anion Gap 6, BUN 24 H, Creatinine 1.69 H, Estim Creat Clear Calc 25.13, Est GFR (MDRD) Af Amer 50 L, Est GFR (MDRD) Non-Af 41 L, BUN/Creatinine Ratio 14.2, Glucose 118 H, Calcium 7.6 L, Total Bilirubin 2.00 H, AST 33, ALT 29, Alkaline Phosphatase 94, Total Protein 7.0, Albumin 3.4, Globulin 3.6, Albumin/Globulin Ratio 0.9 01/24/23 12:09: POC Glucose 169 H Microbiology: Microbiology 01/22/23 12:45 Fluid - Thoracentesis Fluid Gram Stain - Final 01/22/23 12:45 Fluid - Thoracentesis Fluid Body Fluid Culture - Preliminary No growth-Final to follow 01/20/23 04:43 Blood Culture (Wb) #2 - Left Wrist Blood Culture - Preliminary No growth in 48 hours. 01/20/23 04:10 Blood Culture (Wb) - Left Wrist Blood Culture - Preliminary No growth in 48 hours. 01/20/23 04:00 Nasal Secretion SARS-CoV-2 & FLU Antigen (Rapid) - Final D/C Instructions Discharge Diet: Low fat / Low cholesterol (Limit fluid intake to 2 L daily) and 2000 mg Sodium Diet Discharge Activity: No Restrictions Please Follow Up With: Alia Victoria PA, PA Meaningful Use Info Meaningful Use Diagnoses (Choose all that apply): CHF CHF HEIKE/ARB ordered at discharge?: Yes Documented LVEF (%): 20 Discharge Plan Admission Admit Date/Time: 01/20/23 06:49 Primary Reason for Your Visit: Shortness of breath Attending Provider: Faith Mario Primary Care Provider: Mo Lozano Consulting Providers: Hoda Posey; Serg Bazzi; Agueda Warren Instructions Patient Instructions: Heart Failure Flare Up Signs, Coping with Heart Failure, Heart Failure Make Changes Diet, Heart Failure Dc, Heart Failure Care, Heart Failure Discharge Orders/Prescriptions Prescriptions: New spironolactone 25 mg Tablet 12.5 mg PO DAILY Qty: 15 1RF furosemide 40 mg Tablet 20 mg PO DAILY Qty: 15 1RF Jardiance 10 mg Tablet 10 mg PO DAILY Qty: 30 1RF carvedilol 3.125 mg Tablet 3.125 mg PO BID Qty: 60 1RF atorvastatin 20 mg Tablet 20 mg PO QHS Qty: 30 1RF aspirin 81 mg Tablet,Delayed Release (Dr/Ec) 81 mg PO BREAKFAST Qty: 1 0RF amiodarone 200 mg Tablet 200 mg PO DAILYCM Qty: 30 1RF Eliquis 2.5 mg tablet 2.5 mg PO BID Qty: 60 1RF lisinopril 5 mg tablet 2.5 mg PO DAILY Qty: 15 1RF Referrals / Follow Up: Agueda Warren MD [Med Staff - Consulting] - See Referral Note (will call you for follow up) Mo Lozano MD [Primary Care Provider] - Within 1 Week Mayra Mcarthur NP, DIRECTOR [employer] [Med Staff - Adv Practice Prof] - 02/28/23 9:15 am Alia Victoria, PA [Med Staff - Adv Practice Prof] - 02/20/23 9:30 am Disposition Disposition (needs filled in before D/C Order can be placed): Home, Self Care Charges/Coding Visit Charges Inpatient E&M: 07620 Disch Hosp >30min
--- NOTE | 2023-01-24 15:44 | CASEMGMT ---
KIMMY CARBALLO NOTE: KIMMY CARBALLO spoke w/pt's KENNEDY who is at bedside w/pt. She states they deny having any discharge needs/concerns. KIMMY CARBALLO reviewed therapy notes and no additional therapy recommended. Allen VÁZQUEZ RN, CM
[2023-01-25 08:29] LABS: Pathologist Comment/Body Fluid Reviewed
== END 2023-01-24 16:45 | disposition home or self-care (01) | DRG 280 ==
LOC: ED 06:12 → ICU 07:58
PROVIDERS: Internal Medicine; Nurse Practitioner Adult Health; Admitting Provider Internal Medicine; Emergency Provider Emergency Medicine; PCP Family Medicine; Visit Provider Internal Medicine
DX: I13.0 Hypertensive heart and chronic kidney disease with heart failure and stage 1 through stage 4 chronic kidney disease, or unspecified chronic kidney disease (principal); I21.4 Non-ST elevation (NSTEMI) myocardial infarction; J96.01 Acute respiratory failure with hypoxia; I50.21 Acute systolic (congestive) heart failure; J90 Pleural effusion, not elsewhere classified; N17.9 Acute kidney failure, unspecified; I16.1 Hypertensive emergency; I42.9 Cardiomyopathy, unspecified; I48.91 Unspecified atrial fibrillation; G31.84 Mild cognitive impairment of uncertain or unknown etiology; E11.22 Type 2 diabetes mellitus with diabetic chronic kidney disease; N18.32 Chronic kidney disease, stage 3b; I25.10 Atherosclerotic heart disease of native coronary artery without angina pectoris; K21.9 Gastro-esophageal reflux disease without esophagitis; I25.2 Old myocardial infarction; R91.1 Solitary pulmonary nodule; Z91.148 Patient's other noncompliance with medication regimen for other reason; Z79.01 Long term (current) use of anticoagulants; Z79.82 Long term (current) use of aspirin; Z79.84 Long term (current) use of oral hypoglycemic drugs; Z79.899 Other long term (current) drug therapy; Z87.891 Personal history of nicotine dependence
CPT/HCPCS: 32555; 36415; 36600; 71045; 71046; 71250; 71275; 76770; 78452; 80048; 80053; 80061; 81001; 82248; 82570; 82803; 82945; 82962; 83036; 83605; 83615; 83735; 83880; 84100; 84156; 84157; 84300; 84436; 84443; 84480; 84484; 84540; 85025; 85379; 85610; 85730; 87040; 87070; 87075; 87205; 87428; 87641; 88108; 88305; 88313; 88341; 88342; 89050; 93005; 93017; 93306; 94002; 94640; 94762; 97110; 97116; 97162; 97166; 97802; 99252; 99284; A9500; J7030; Q9957; Q9967; A4216; C8929; G0463; J1940; J2785

== ENCOUNTER → 2023-03-08 | Outpatient (CLI) | payer MEDICARE, SELFPAY ==
--- NOTE | 2023-03-08 17:39 | CT_ITS ---
INDICATION: ground glass opacity EXAMINATION: CT CHEST WITHOUT CONTRAST - CT Chest W/O Contrast Injection TECHNIQUE: Helically acquired images were obtained of the chest. A radiation dose optimization technique was used for this scan. IV Contrast dosage and agent: None. COMPARISON: Chest x-ray January 22, 2023.. CT chest January 22, 2023. CTA chest January 30, 2023. FINDINGS: LUNGS, PLEURA AND LARGE AIRWAYS: Spiculated nodule right middle lobe image #67 measures 7 mm. 2.5 cm right lower lobe infiltrate. No pleural effusion or thickening. No pneumothorax. THYROID: Enlarged lobe or nodule left thyroid measures 4 x 2.8 cm in AP and transverse dimensions. Right lobe appears absent. HEART AND PERICARDIUM: Calcific coronary artery disease. No pericardial effusion. CORONARY ARTERIES: Coronary artery calcification present. VESSELS: Thoracic aorta is not dilated. MEDIASTINUM AND LEONCIO: No mediastinal or hilar adenopathy. Esophagus is unremarkable. No hiatal hernia. UPPER ABDOMEN: No acute pathology. BONES: Sternotomy wires. Mediastinal vascular clips. CT/Chest without Contrast IMPRESSION: Right pulmonary nodules and/or infiltrates as above. Differential considerations include infectious, inflammatory, and neoplastic etiologies. Recommend follow-up to resolution. Moderate bilateral pleural effusions are resolved. Other incidental findings as above. Electronically Signed: Frank Cordoba MD at 20:42 EST ,
--- OUTSIDE RECORDS SUMMARY | 2023-03-08 17:55 | XMS RPT_ITS | CCD ---
Author Name Unknown Address [address] [place] [address] Organization [facility] Care Team Providers Care Chemical Sales Representative Name Role Phone Ricci Lozano MD Primary Care Provider OWEN EATON Attending Unavailable ZENIA, RICCI Rudd Primary Care Unavailable APRYLAGENFABIOLA Referring Unavailable ZENIA, RICCI Rudd Primary Care Unavailable ZENIA, RICCI Rudd Referring Unavailable ZENIA, RICCI Rudd Primary Care Unavailable ZENIA, RICCI Rudd Attending Unavailable ZENIA, RICCI Rudd Primary Care Unavailable ZENIA, RICCI Rudd Referring Unavailable ZENIA, RICCI Rudd Primary Care Unavailable ZENIA, RICCI Rudd Referring Unavailable ZENIA, RICCI Rudd Primary Care Unavailable ZENIA, RICCI Rudd Referring Unavailable ZENIA, RICCI Rudd Primary Care Unavailable ZENIA, RICCI Rudd Attending Unavailable ZENIA, RICCI Rudd Primary Care Unavailable ZENIA, RICCI Rudd Referring Unavailable ZENIA, RICCI Rudd Primary Care Unavailable HAAGENFABIOLA Attending Unavailable ZENIA, RICCI Rudd Primary Care Unavailable HAAGEN, FABIOLA Referring Unavailable ZENIA, RICCI Rudd Primary Care Unavailable HAAGEN, FABIOLA Referring Unavailable ZENIA, RICCI Rudd Primary Care Unavailable HAAGEN, FABIOLA Attending Unavailable HAAGEN, FABIOLA Referring Unavailable ZENIA, RICCI Rudd Primary Care Unavailable HAAGEN, FABIOLA Referring Unavailable ZENIA, RICCI Rudd Primary Care Unavailable HAAGEN, FABIOLA Attending Unavailable HAAGEN, FABIOLA Referring Unavailable Allergies Allergy Classification Reported Allergen(s) Allergy Type Date of Onset Reaction(s) Facility (8 sources) Lisinopril; Translations: [LISINOPRIL] Drug Allergy 10-13-2004 [facility] Medications Completed/Discontinued Medications Medication Drug Class(es) Dates Sig (Normalized) Sig (Original) levothyroxine sodium 0.05 mg oral tablet (1 source) l-Thyroxine Start: 02-02-2021 End: 10-10-2021 take 1 tablet by mouth once daily levothyroxine (SYNTHROID) 50 mcg tablet Indications: Hypothyroidism, unspecified type Take 1 tablet by mouth once daily. 30 tablet 11 02/02/2021 10/10/2021 Discontinued Problems Active Problems Problem Classification Problem Date Documented Da te Episodic/Chronic Anxiety disorders (9 sources) Mental health problem; Translations: [Nonpsychotic mental disorder, unspecified] Onset: 2 04-09-2021 Chronic Cardiac dysrhythmias (1 source) Paroxysmal atrial fibrillation; Translations: [Paroxysmal atrial fibrillation (HCC)] Onset: 3 Chronic Chronic kidney disease (14 sources) Chronic kidney disease stage 3; Translations: [Stage 3 chronic kidney disease, unspecified whether stage 3a or 3b CKD (HCC)] Onset: 2 Chronic Chronic kidney disease (1 source) Chronic kidney disease; Translations: [Stage 3 chronic kidney disease, unspecified whether stage 3a or 3b CKD (HCC)] Onset: 2 Chronic obstructive pulmonary disease and bronchiectasis (9 sources) Chronic obstructive lung disease; Translations: [Chronic obstructive pulmonary disease, unspecified] Onset: 9 10-14-2020 Chronic Diabetes mellitus with complications (12 sources) Type 2 diabetes mellitus; Translations: [Type 2 diabetes mellitus with diabetic nephropathy] Onset: 8 Chronic Diabetes mellitus without complication (1 source) Diabetes mellitus without complication; Translations: [Type 2 diabetes mellitus with stage 3 chronic kidney disease, without long-term current use of insulin, unspecified whether stage 3a or 3b CKD (HCC)] Onset: 3 Diverticulosis and diverticulitis (7 sources) Diverticulosis of colon; Translations: [Diverticulosis of large intestine without perforation or abscess without bleeding] Onset: 8 12-17-2007 Chronic Esophageal disorders (10 sources) Gastroesophageal reflux disease; Translations: [Gastro-esophageal reflux disease without esophagitis] Chronic Essential hypertension (8 sources) Essential hypertension; Translations: [Essential (primary) hypertension] Onset: 7 Chronic Essential hypertension (1 source) Essential hypertension; Translations: [Benign hypertension with CKD (chronic kidney disease) stage III (HCC)] Onset: 3 Hyperplasia of prostate (7 sources) Benign prostatic hyperplasia; Translations: [Benign prostatic hyperplasia without lower urinary tract symptoms] Onset: 0 08-13-2009 Chronic Hypertension with complications and secondary hypertension (1 source) Hypertensive chronic kidney disease with stage 1 through stage 4 chronic kidney disease, or unspecified chronic kidney disease; Translations: [Benign hypertension with CKD (chronic kidney disease) stage III (HCC)] Onset: 3 Chronic Immunizations and screening for infectious disease (1 source) Needs influenza immunization; Translations: [Encounter for immunization] 11-24-2022 Episodic Other aftercare (1 source) local company intermodal truck driver (current) use of anticoagulants; Translations: [Chronic anticoagulation] Onset: 3 Episodic Other and unspecified benign neoplasm (7 sources) History of polyp of colon; Translations: [Personal history of colonic polyps] 10-13-2004 Episodic Other circulatory disease (1 source) Hypotension, unspecified; Translations: [Hypotension, unspecified hypotension type] Onset: 3 Episodic Other gastrointestinal disorders (7 sources) Irritable bowel syndrome; Translations: [Irritable bowel syndrome without diarrhea] Onset: 6 01-29-2006 Chronic Other liver diseases (2 sources) Alkaline phosphatase raised; Translations: [Abnormal levels of other serum enzymes] Episodic Other lower respiratory disease (1 source) Solitary pulmonary nodule; Translations: [Lung nodule] Onset: 3 Episodic Thyroid disorders (20 sources) Hypothyroidism; Translations: [Hypothyroidism, unspecified] Onset: 0 Chronic Past or Other Problems Problem Classification Problem Date Documented Date Episodic/Chronic Cancer; other and unspecified primary (7 sources) History of malignant neoplasm of thymus; Translations: [Personal history of other malignant neoplasm of thymus] Onset: 02-27-2007 10-14-2020 Episodic Other and unspecified benign neoplasm (7 sources) Benign neoplasm of colon; Translations: [Benign neoplasm of colon, unspecified] Onset: 12-17-2007 12-17-2007 Episodic Other liver diseases (1 source) Abnormal levels of other serum enzymes; Translations: [Elevated alkaline phosphatase level] Onset: 05-12-2022 Episodic Residual codes; unclassified (3 sources) History of colonoscopy; Translations: [Other specified postprocedural states] Onset: 06-19-2017 06-19-2017 Episodic Results Test Name Value Interpretation Reference Range Facil ity Vital Signs Date Time Vital Sign Value Performing Clinician Valerio cardona 11-24-2022 10:13-0400 Body weight 64.41 kg Ricci Lozano MD Work Phone: [facility] 11-24-2022 10:13-0400 Diastolic blood pressure 84 mm[Hg] Ricci Lozano MD Work Phone: [facility] 11-24-2022 10:13-0400 Heart rate 107 /min Ricci Loznao MD Work Phone: [facility] 11-24-2022 10:13-0400 SaO2% (BldA) [Mass fraction] 99 % Ricci Lozano MD Work Phone: [facility] 11-24-2022 10:13-0400 Systolic blood pressure 132 mm[Hg] Ricci Lozano MD Work Phone: [facility] 05-12-2022 15:44-0400 Diastolic blood pressure 88 mm[Hg] Ricci Lozano MD Work Phone: [facility] 05-12-2022 15:44-0400 Systolic blood pressure 120 mm[Hg] Ricci Lozano MD Work Phone: [facility] 05-12-2022 15:12-0400 Body height 154.9 cm Ricci Lozano MD Work Phone: [facility] 05-12-2022 15:12-0400 Body weight 67.13 kg Ricci Lozano MD Work Phone: [facility] 05-12-2022 15:12-0400 Heart rate 91 /min Ricci Lozano MD Work Phone: [facility] 05-12-2022 15:12-0400 SaO2% (BldA) [Mass fraction] 98 % Ricci Lozano MD Work Phone: [facility] 11-10-2021 15:58-0400 Diastolic blood pressure 76 mm[Hg] Mi Nurse Work Phone: [facility] 11-10-2021 15:58-0400 Heart rate 80 /min Mi Nurse Work Phone: [facility] 11-10-2021 15:58-0400 Systolic blood pressure 107 mm[Hg] Mi Nurse Work Phone: [facility] 10-10-2021 15:31-0400 Body weight 67.13 kg Ricci Lozano MD Work Phone: [facility] 10-10-2021 15:31-0400 Diastolic blood pressure 82 mm[Hg] Ricci Lozano MD Work Phone: [facility] 10-10-2021 15:31-0400 Heart rate 84 /min Ricci Lozano MD Work Phone: [facility] 10-10-2021 15:31-0400 Systolic blood pressure 122 mm[Hg] Ricci Lozano MD Work Phone: [facility] Encounters Encounter Date Encounter Type Care Provider Facility Start: 02-28-2023 End: 02-28-2023 ambulatory OWEN EATON Facility:[facility] Start: 02-16-2023 End: 02-17-2023 ambulatory RICCI Tobin ZENIA Facility:[facility] Start: 02-02-2023 End: 02-03-2023 ambulatory [facility] Facility:[facility] Start: 02-01-2023 End: 02-01-2023 ambulatory [facility] Facility:[facility] Start: 01-29-2023 End: 01-30-2023 ambulatory [facility] Facility:[facility] Start: 01-29-2023 End: 01-30-2023 ambulatory [facility] Facility:[facility] Start: 11-24-2022 End: 11-25-2022 ambulatory [facility] Facility:[facility] Start: 11-24-2022 End: 11-24-2022 Patient encounter procedure Ricci Lozano MD Work Phone: [facility] Procedures Date Procedure Procedure Detail Performing Clinician Start: 11-24-2022 INFLUENZA VACCINE, P RSV FREE, AGE 65+ YR, HIGH DOSE, QUADRIVALENT (FLUZONE HIGH-DOSE) Ricci Lozano MD Work Phone: Plan of Treatment Date Care Activity Detail Author Start: 11-25-2023 3 comp foot exam completed Diabetic Foot Exam [facility] Start: 11-25-2023 Covid-19 Vaccine ( season) Covid-19 Vaccine ( season) [facility] Immunizations Immunization Date Immunization Notes Care Provider Kiana mesa 11-24-2022 influenza (HD-IIV4) vaccine, age 65+ yr, high dose, quadrivalent, PF (FLUZONE HIGH-DOSE) Ricci Lozano MD Work Phone: [facility] 12-17-2021 influenza (HD-IIV4) vaccine, age 65+ yr, high dose, quadrivalent, PF (FLUZONE HIGH-DOSE) Ricci Lozano MD Work Phone: [facility] Work Phone: 06-12-2021 COVID-19 original vaccine, age 12+ yr, monovalent (PFIZER-BIONTECH - CARDENAS TOP) Ricci Lozano MD Work Phone: [facility] 01-03-2021 influenza (HD-IIV4) vaccine, age 65+ yr, high dose, quadrivalent, PF (FLUZONE HIGH-DOSE) Ricci Lozano MD Work Phone: [facility] Work Phone: 11-16-2020 COVID-19 original vaccine, age 12+ yr, monovalent (PFIZER-BIONTECH - PURPLE TOP) Ricci Lozano MD Work Phone: [facility] 04-01-2020 COVID-19 vaccine, ag e 12+ yr (PFIZER-BIONTECH - PURPLE TOP) Ricci Lozano MD Work Phone: [facility] 03-12-2020 COVID-19 vaccine, ag e 12+ yr (PFIZER-BIONTECH - PURPLE TOP) Ricci Lozano MD Work Phone: [facility] 11-19-2019 influenza, high-dose , quadrivalent vaccine (FLUZONE HIGH DOSE QUADRIVALENT) Ricci Lozano MD Work Phone: [facility] 12-17-2018 influenza, high dose seasonal, preservative-free Ricci Lozano MD Work Phone: [facility] Work Phone: 12-17-2017 influenza, injectabl e, quadrivalent, preservative free Ricci Lozano MD Work Phone: [facility] Work Phone: 12-17-2017 influenza, seasonal, injectable Ricci Lozano MD Work Phone: [facility] 11-26-2016 influenza, high dose seasonal, preservative-free Ricci Lozano MD Work Phone: [facility] 12-07-2015 influenza, high dose seasonal, preservative-free Ricci Lozano MD Work Phone: [facility] 11-26-2014 influenza, seasonal, injectable Ricci Lozano MD Work Phone: [facility] 06-24-2014 pneumococcal conjuga te vaccine, 13 valent Ricci Lozano MD Work Phone: [facility] 11-17-2013 influenza, seasonal, injectable Ricci Lozano MD Work Phone: [facility] 2013 tetanus toxoid, redu joya diphtheria toxoid, and acellular pertussis vaccine, adsorbed Ricci Lozano MD Work Phone: [facility] 12-28-2009 influenza virus vacc ine, unspecified formulation Ricci Lozano MD Work Phone: [facility] Work Phone: 02-01-2009 novel influenza-H1N1 -09, preservative-free, injectable Ricci Lozano MD Work Phone: [facility] Work Phone: 11-27-2008 influenza virus vacc ine, unspecified formulation Ricci Lozano MD Work Phone: [facility] Work Phone: 05-26-2008 pneumococcal polysaccharide vaccine, 23 valent Ricci Lozano MD Work Phone: [facility] Work Phone: 01-10-2008 influenza virus vacc ine, unspecified formulation Ricci Lozano MD Work Phone: [facility] 02-01-2007 influenza virus vacc ine, unspecified formulation Ricci Lozano MD Work Phone: [facility] 01-29-2006 influenza virus vacc ine, unspecified formulation Ricci Lozano MD Work Phone: [facility] Work Phone: 11-18-2003 pneumococcal polysaccharide vaccine, 23 valent Ricci Lozano MD Work Phone: [facility] Work Phone: 03-15-2003 diphtheria and tetan us toxoids, adsorbed for pediatric use Ricci Lozano MD Work Phone: [facility] Work Phone: Payers Date Payer Category Payer Medicare MMO MEDICARE MMO MEDADVANTAGE HMO [id number] 2017-Present [phone] [address] [place] [address] O [id number] 2017 Unknown [id number] Social History Date Type Detail Facility Start: 10-10-2021 Tobacco smoking stat us UTIS Ex-smoker [facility] End: 02-12-2003 History of tobacco use Current smoker [facility] End: 02-12-2003 History of tobacco use Cigarette Smoker [facility] Start: 10-10-2021 End: 03-10-2022 Cigarettes smoked current (pack per day) - Reported 1 [facility] Work Phone: Start: 10-10-2021 Tobacco use and exposure Smokeless tobacco non-user [facility] Start: 10-10-2021 End: 05-12-2022 Alcohol intake Current non-drinker of alcohol (finding) [facility] Start: 1940 Sex Assigned At Not on file C [facility] Start: 09-30-2021 End: 10-10-2021 Exposure to SARS-CoV-2 (event) Not sure [facility] Start: 03-10-2022 End: 11-24-2022 Tobacco use panel [facility] Work Phone: Adult Depression Screening Assessment 3 [facility] Work Phone: Clinical Notes 12-18-2016 to 02-28-2023 Patient InstructionsRicci Lozano MD - 11/24/2022 10:11 AM Grace Eason, RT(R) - 06/02/2022 8:00 AM EDTTelephone Encounter - Rosenda Sp RN - 05/17/2022 1:02 PM EDT Note Date & Type Note Facility 02-28-2023 Note HNO ID: [id number] Author: OWEN EATON MD Service: ? Author Type: Physician Type: Progress Notes Filed: 02/28/2023 11:05 Note Text: HISTORY AND PHYSICAL [place] 1940 REFERRING PHYSICIAN: Fabiola Araujo APRN.C* CHIEF COMPLAINT: Consult (THYROID NODULE) HPI: The patient is a 82 year old male with a complaint of a left thyroid nodule. This thyroid nodule was found on Ultrasound by [facility]. The patient denies pain, denies difficulty swallowing, deniesrapid enlargement of the neck, deniesdysphagia, denies a change in the voice, denies hot or cold intolerence. The patient has not a prior history of neck radiation treatment. The patient is being seen by me today at the request of Dr. Araujo for my opinion and advice regarding Thyroid nodule. 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 aspirin, enteric coated (ASPIRIN, ENTERIC COATED) 325 mg EC tablet Take 1 tablet by mouth once daily. Take with food. carvedilol (COREG) 3.125 mg tablet 1 tablet two times a day. ELIQUIS 2.5 mg tab(s) 1 tablet two times a day. spironolactone (ALDACTONE) 25 mg tablet Take 0.5 tablets by mouth once daily. JARDIANCE 10 mg tablet Take 1 tablet by mouth daily with breakfast. atorvastatin (LIPITOR) 20 mg tablet 1 tablet once daily. amiodarone (PACERONE) 200 mg tablet 1 tablet once daily. No current facility-administered medications for this visit. ALLERGIES: Lisinopril PERSONAL HISTORY: Social History Tobacco Use Smoking status: Former Packs/day: 1.00 Years: 30.00 Additional pack years: 0.00 Total pack years: 30.00 Types: Cigarettes Quit date: 02/12/2003 Years since quittin.0 Smokeless tobacco: Never Vaping Use Vaping Use: Never used Substance Use Topics Alcohol use: No Drug use: No FAMILY HISTORY: FAMILY HISTORY Problem Relation Age of Onset Seizures Mother Cancer Father Lung CA Heart Sister REVIEW OF SYMPTOMS: The review of systems data was entered by the nurse and reviewed by pa Nursing Notes: Rowan Price LPN 02/28/2023 10:36 AM Signed REVIEW OF SYSTEMS: General: The patient denies fatigue, denies weight loss, denies weight gain, denies feeling hot, and denies feelings of cold. Eyes: The patient denies glaucoma, NOTES eye injury/surgery, does not wear glasses or contacts. Ear/Nose/Throat: The patient denies allergies, denies hayfever, denies ear infections, and denies bloody noses. Cardiovascular: The patient denies chest pain, NOTES heart disease, NOTES high blood pressure,denies cardiac stent, denies prior heart attack, NOTES irregular heart beat, denies high cholesterol, denies poor circulation, NOTES heart failure, other cardiac issues, denies claudication, denies cold feet, denies peripheral arterial stent. Respiratory: The patient denies tuberculosis, denies pneumonia, denies frequent cough, denies pulmonary embolism, NOTES shortness of breath, and denies coughing up blood, NOTES copd. Gastrointestinal: The patient denies difficulty swallowing, denies acid reflux, denies ulcers, denies vomiting, denies jaundice/hepatitis, denies gallbladder problems, denies black or tarry stools, denies hemorrhoids, denies bleeding from rectum, denies diverticulitis, denies constipation, denies diarrhea, denies loss of stool control, and denies hernias. Kidney/Bladder: The patient denies kidney stones, denies urine infections, and denies bloody urine, NOTES kidney failure. Skin: The patient denies a history of skin cancer, denies bleeding/changing moles, and denies a history of skin rash. Neurologic: The patient denies a history of epilepsy/convulsions, denies headaches, denies head/spinal injuries, and denies stroke/TIA. Psychiatric: The patient denies psychiatric medications, denies depression, and denies voices, denies substance abuse. Endocrine: The patient denies thyroid disorders, denies diabetes, and denies hormonal problems. Hematologic: The patient denies a history of bruising, denies bleeding, and denies anemia, denies b (more content not included)... [facility] 02-16-2023 Note HNO ID: [id number] Author: FABIOLA ARAUJO APRN.E MERCHANT Service: ? Author Type: Nurse Practitioner Type: Progress Notes Filed: 02/16/2023 17:18 Note Text: This is a 82 year old male who presents today with: Patient presents with: Recheck: BP follow up HISTORY OF PRESENT ILLNESS: [place] is a 82 year old male. Patient presents with: Recheck: BP follow up Pt presents today for BP recheck. At his initial hospital follow-up, he was found to be hypotensive (and symptomatic). His lisinopril was placed on hold. His kidney function showed worsening decrease, so his furosemide was placed on hold for a couple of days. Recheck kidney function was stable, so restarted a lower dose of furosemide. He has follow up appts scheduled with cardiology, nephrology and pulmonology. He was also found to have thyroid nodules and has an upcoming appt scheduled w/ gen surg. Today, he reports that he is doing well. He had been feeling good. Doesn't have a good appetite, but his weight is appearing stable over the past few weeks. He denies any CP/palpiations/SOB/dizziness. No hematochezia/melena. 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 aspirin, enteric coated (ASPIRIN, ENTERIC COATED) 325 mg EC tablet Take 1 tablet by mouth once daily. Take with food. carvedilol (COREG) 3.125 mg tablet 1 tablet two times a day. ELIQUIS 2.5 mg tab(s) 1 tablet two times a day. spironolactone (ALDACTONE) 25 mg tablet Take 0.5 tablets by mouth once daily. JARDIANCE 10 mg tablet Take 1 tablet by mouth daily with breakfast. atorvastatin (LIPITOR) 20 mg tablet 1 tablet once daily. amiodarone (PACERONE) 200 mg tablet 1 tablet once daily. No current facility-administered medications for this visit. FAMILY HISTORY Problem Relation Age of Onset Seizures Mother Cancer Father Lung CA Heart Sister Social History Tobacco Use Smoking status: Former Packs/day: 1.00 Years: 30.00 Additional pack years: 0.00 Total pack years: 30.00 Types: Cigarettes Quit date: 02/12/2003 Years since quittin.0 Smokeless tobacco: Never Substance Use Topics Alcohol use: No Drug use: No EXAM: BP 118/76 Pulse 66 Resp 16 SpO2 99% PHYSICAL EXAM: General Appearance: Well appearing, alert, in no acute distress, well-hydrated, well nourished.. Skin: Skin color, texture, turgor normal, no suspicious rashes or lesions. Head: Normocephalic, no masses, lesions, tenderness or abnormalities. Eyes: Anicteric sclera. Pupils are equally round and reactive to light. Extraocular movements are intact. . Lungs: Lungs clear to auscultation. No wheezing, rhonchi, rales.. Heart: RRR without murmur, gallop, or rubs. No ectopy. Neurologic: Gait normal. ASSESSMENT/PLAN: 1. Hypotension, unspecified hypotension type - ICD9: 458.9, ICD10: I95.9 (primary diagnosis) Stable on current medication regimens. Continue without change. Will fax recent office notes to Dr. Warren's office and [facility] so they are up -to-date with recent medication changes. 2. Thyroid nodule - ICD9: 241.0, ICD10: E04.1 Follow-up with general surgery, as planned. 3. Stage 3 chronic kidney disease, unspecified whether stage 3a or 3b CKD (HCC) - ICD9: 585.3, ICD10: N18.30 As above. 4. Paroxysmal atrial fibrillation (HCC) - ICD9: 427.31, ICD10: I48.0 Follow-up with cardiology, as planned. Discussed treatment plan and patient voices understanding. Patient's questions answered appropriately. Medications and potential side effects were discussed and patient voices understanding. Return to the office as scheduled or as needed for worsening/no improvement. Fabiola Araujo APRN.E MERCHANT [facility] 02-02-2023 Note HNO ID: [id number] Author: Fabiola Araujo APRN.E MERCHANT Service: ? Author Type: Nurse Practitioner Type: Progress Notes Filed: 02/02/2023 4:31 PM Note Text: This is a 82 year old male who presents today with: Patient presents with: Recheck: BP follow up HISTORY OF PRESENT ILLNESS: [place] is a 82 year old male. Patient presents with: Recheck: BP follow up Pt presents today to follow-up on his blood pressure. Was here a few days ago and was hypotensive. Lisinopril was placed on hold. Kidney function returned elevated and lasix was held yesterday. He reports that clinical is feeling better. Less tired. No dizziness. No CP/SOB. 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 Take with food. carvedilol (COREG) 3.125 mg tablet 1 tablet two times a day. ELIQUIS 2.5 mg tab(s) 1 tablet two times a day. spironolactone (ALDACTONE) 25 mg tablet Take 0.5 tablets by mouth once daily. JARDIANCE 10 mg tablet Take 1 tablet by mouth daily with breakfast. atorvastatin (LIPITOR) 20 mg tablet 1 tablet once daily. furosemide (LASIX) 20 mg tablet 1 tablet once daily. amiodarone (PACERONE) 200 mg tablet 1 tablet once daily. No current facility-administered medications for this visit. FAMILY HISTORY Problem Relation Age of Onset Seizures Mother Cancer Father Lung CA Heart Sister Social History Tobacco Use Smoking status: Former Packs/day: 1.00 Years: 30.00 Additional pack years: 0.00 Total pack years: 30.00 Types: Cigarettes Quit date: 02/12/2003 Years since quittin.9 Smokeless tobacco: Never Substance Use Topics Alcohol use: No Drug use: No EXAM: BP 120/73 Pulse 61 Resp 16 SpO2 98% PHYSICAL EXAM: General Appearance: Well appearing, alert, in no acute distress, well-hydrated, well nourished. Skin: Skin color, texture, turgor normal, no suspicious rashes or lesions. Head: Normocephalic, no masses, lesions, tenderness or abnormalities. Eyes: Anicteric sclera. Extraocular movements are intact. . Lungs: Lungs clear to auscultation. No wheezing, rhonchi, rales.. Heart: RRR without murmur, gallop, or rubs. No ectopy. Neurologic: Gait normal. ASSESSMENT/PLAN: 1. Hypotension, unspecified hypotension type - ICD9: 458.9, ICD10: I95.9 (primary diagnosis) Improved today. Continue to hold the lisinopril. 2. Stage 3 chronic kidney disease, unspecified whether stage 3a or 3b CKD (HCC) - ICD9: 585.3, ICD10: N18.30 Repeat labs today. If kidney function stable, consider restarting low-dose lasix. - CBC + DIFF - BASIC METABOLIC PNL Discussed treatment plan and patient voices understanding. Patient's questions answered appropriately. Medications and potential side effects were discussed and patient voices understanding. Return to the office as scheduled or as needed for worsening/no improvement. Fabiola Araujo APRN.CNP [facility] 02-01-2023 Note HNO ID: [id number] Author: Nya Boykin RDMS Service: ? Author Type: Video Game Programmer Type: Progress Notes Filed: 02/01/2023 10:25 AM Note Text: Radiology Service Progress Note PATIENT NAME: [place] Preston DATE OF SERVICE: February 01, 2023 TIME: 10:25 AM PATIENT IDENTITY VERIFICATION COMPLETED USING TWO (2) IDENTIFIERS: Name and Date of confirmed by patient verbally and Name and Date of confirmed by identification band. FALL SCREENING: Has the patient had 2 falls in the last year or 1 fall with injury or currently using an Ambulatory Assistive Device (Walker, Cane, Wheelchair, Crutches, etc.)? No PATIENT GENDER DATA: Male PATIENT RELEVANT IMPLANT DATA REVIEWED: Not Applicable RADIOLOGY DEPARTMENT: Ultrasound PERIPHERAL IV DATA: Not applicable SIGNED BY: Nya Boykin RDMS February 01, 2023 10:25 AM [facility] 01-29-2023 Note HNO ID: [id number] Author: Fabiola Araujo APRN.ELIDIA Service: ? Author Type: Nurse Practitioner Type: Progress Notes Filed: 01/29/2023 5:36 PM Note Text: This is a 82 year old male who presents today with: Patient presents with: Hospital F/U: [facility] dc'd 01/24/23 HISTORY OF PRESENT ILLNESS: Lake Preston is a 82 year old male. Patient presents with: Hospital F/U: [facility] dc'd 01/24/23 Pt presents today for hospital follow-up. He went to the emergency room on 01/20/2023 with an acute onset of shortness of breath that started about 3 hours prior to presentation. He was noted to have a severely elevated blood pressure with a systolic greater than 200 at the time. Without treatment, his blood pressure improved dramatically and he did experience improvement in his shortness of breath with a nebulizer treatment. A CT of his chest was performed with no PE. But it did show pleural effusions that were quite large. His initial troponin was 204. He was started on IV fluids, but then had a similar episode and developed shortness of breath, acute desaturation with bilateral rails. He was started on BiPAP and given IV Lasix. His blood pressure at that time was 180/110. It was felt that he had hypertensive emergency and flash pulmonary edema. He was admitted to ICU. An echo showed severe LV systolic dysfunction with apical akinesis and an estimated EF of 20 to 25%. There was a concern of a non-STEMI. He was then noted to go into A-fib with a heart rate between 115 and 160. He was started on a beta-pelon and given 1 dose of IV dig. He did not convert, so he was started on an amiodarone drip and converted to p.o. amiodarone and he did convert to normal sinus rhythm. At discharge she was transitioned from therapeutic Lovenox to Eliquis 2.5 mg twice a day. With regard to his pleural effusions, he was taken for right thoracentesis in which 910 cc of fluid was removed. They were able to transition him to room air after that. A repeat CT of the chest did show pulmonary nodule that needs outpatient follow-up and he is following up with pulmonary for this. With the diuresis he did develop some acute kidney injury. Nephrology was consulted. He was gently rehydrated with improvement of his serum creatinine. Cardiac cath was deferred due to his CKD. Stress testing showed no reversible ischemia and cardiology plans on following up as an outpatient for ongoing care. During his hospitalization, he was started on aspirin 81 mg daily, lisinopril 2.5 mg daily, Coreg 3.125 mg twice a day, amiodarone 200 mg daily, Jardiance 10 mg daily, Aldactone 12.5 mg daily, Lasix 20 mg daily, and Eliquis 2.5 mg daily twice daily. He was discharged home on 01/24/2023. He presents today with a [id number]. Refers that he previously was on metoprolol and synthroid. Per the [id number], he stopped these after having some hallucinations after covid that he thought his PCP told him to stop the medication. He has follow-ups scheduled: Cardiology February 20 Pulmonology February 28 Awaiting nephrology appt. Since being home, reports that he has been tired. He fell the day after discharge (denies hitting head or any head injury). Some dizziness. Found to be hypotensive today. He reports that he is eating and drinking okay. Reports that breathing is improved. He denies CP/palpitations/swelling/orthopn ea. He reports that he is urinating adequately. He reports that he is stooling adequately. Denies any s/s of bleeding. 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 Take with food. carvedilol (COREG) 3.125 mg tablet 1 tablet two times a day. ELIQUIS 2.5 mg tab(s) 1 tablet two times a day. spironolactone (ALDACTONE) 25 mg tablet Take 0.5 tablets by mouth once daily. JARDIANCE 10 mg tablet Take 1 tablet by mouth daily with breakfast. atorvastatin (LIPITOR) 20 mg tablet 1 tablet once daily. furosemide (LASIX) 20 mg tablet 1 tablet once daily. amiodarone (PACERONE) 200 mg tablet 1 tablet once daily. No current facility-administered medications fo (more content not included)... [facility] 11-24-2022 Note HNO ID: [id number] Author: Ricci Lozano MD Service: ? Author Type: Physician Type: Progress Notes Filed: 11/24/2022 12:36 PM Note Text: Patient presents with: Hypertension HPI: Patient presents today for office visit for follow up. Still not taking any medications. Daughter in law didn't have time to get him to lab this week can take him today after visit. Saw [facility] and was to have cataract surgery with Dr Cramer. They attempted right eye and had to stop due to patient resisting. Left eye surgery was then canceled. Discussed him not driving Noticed during surgery that on monitor BP was up the whole time they were there. Diabetes: Does not follow up a diabetic diet. Is a sweet eater but not a big eater. Eats more snacks. Emotionally is stable. Memory is still significantly an issues. Still has occasional hallucinations. Is not upset or angry. Is happy. Weight is down but not eating as much. Discussed using ensure etc. Very particular about what to eat. Has seen neuro and declined psych. MEDICATIONS: No current outpatient medications on file. No current facility-administered medications for this visit. 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, radiation, surgery Personal history of colonic polyps PAST SURGICAL HISTORY Procedure Laterality Date COLONOSCOPY FLX DX W/COLLJ SPEC WHEN PFRMD [id number] Colonoscopy COLONOSCOPY FLX DX W/COLLJ SPEC WHEN PFRMD 08/04/2013 Colonoscopy COLSC FLX W/RMVL OF TUMOR POLYP LESION SNARE TQ 12/17/07 EGD [id number] PAST SURGICAL HISTORY OF thyroidectomy, partial FAMILY HISTORY Problem Relation Age of Onset Seizures Mother Cancer Father Lung CA Heart Sister Social History Tobacco Use Smoking status: Former Packs/day: 1.00 Years: 30.00 Additional pack years: 0.00 Total pack years: 30.00 Types: Cigarettes Quit date: 02/12/2003 Years since quittin.7 Smokeless tobacco: Never Substance Use Topics Alcohol use: No Drug use: No Reviewed current medications, allergies, past medical history, surgical history, family history and social history today. REVIEW OF SYSTEMS All other reviewed and negative other than HPI. HEALTH MAINTENANCE: Reviewed health maintenance issues today and recommended the following in detail. Dilated Retinal Exam Never done Hepatitis B Vaccine(1 of 3 - Risk 3-dose series) Never done Diabetic Foot Exam due on 10/10/2022 Influenza Vaccine(1) due on 10/13/2022 Covid-19 Vaccine( season) due on 10/13/2022 HbA1C due on 11/08/2022 VITALS: BP 132/84 Pulse 107 Wt 64.4 kg (142 lb) SpO2 99% BMI 26.83 kg/m? Last 4 Encounter Wt Readings: Date: Wt: 05/12/2022 67.1 kg (148 lb) 10/10/2021 67.1 kg (148 lb) 04/09/2021 67.1 kg (148 lb) 10/19/2020 68.5 kg (151 lb) PHYSICAL EXAMINATION: General appearance: Well appearing, alert, in no acute distress, well-hydrated, well nourished. Skin: Skin color, texture, turgor normal, no suspicious rashes or lesions Head: Normocephalic, no masses, lesions, tenderness or abnormalities Lungs: Lungs clear to auscultation. No wheezing, rhonchi, rales Heart: RRR without murmur, gallop, or rubs. No ectopy Abdomen: Normal abdominal exam, Abdomen soft, non-tender. Bowel sounds normal. No masses, organomegaly Extremities: No deformities, edema, skin discoloration, clubbing or cyanosis. Good capillary refill. Musculoskeletal: No joint swelling, deformity, or tenderness Feet:Shoes and socks removed, No deformities, ulcers, calluses, normal distal pulses, and sensitive to 10 gm monofilament ASSESSMENT/PLAN: 1. Benign hypertension with CKD (chronic kidney disease) stage III (HCC) - ICD9: 403.10, 585.3, ICD10: I12.9, N18.30 (primary diagnosis) - Controlled - Continue current medications - BASIC METABOLIC PNL 2. Chronic obstructive pulmonary disease, unspecified COPD type ([facility]) - ICD9: 496, ICD10: J44.9 - stable. 3. Gastroesophageal reflux disease, unspecified whether esophagitis present - ICD9: 530.81, ICD10: K21.9 - stable. 4. Mental and behavioral problem - ICD9: V40.9, ICD10: F48.9, F69 - recommended no driving. Refuses tx. 5. Hypothyroidism, unspecified type - ICD9: 244.9, ICD10: E03.9 - labs have been good. 6. Type 2 diabetes mellitus with stage 3 chronic kidney disease, without long-term current use of insulin, unspecified whether stage 3a or 3b CKD (HCC) - ICD9: 250.40, 585.3, ICD10: E11.22, N18.30 - follow labs. Watch diet. - HGB A1C 7. Need for influenza vaccination - ICD9: V04.81, ICD10: Z23 - INFLUENZA VACCINE, PRS (more content not included)... [facility] 11-24-2022 Instructions Ricci Lozano MD - 11/24/2022 10:24 AM EDT You should not be driving any more. This is from Dr Lozano. documented in this encounter [facility] 11-24-2022 History of Presen t illness Narrative Patient presents with: Hypertension HPI: Patient presents today for office visit for follow up. Still not taking any medications. Daughter in law didn't have time to get him to lab this week can take him today after visit. Saw [facility] and was to have cataract surgery with Dr Cramer. They attempted right eye and had to stop due to patient resisting. Left eye surgery was then canceled. Discussed him not driving Noticed during surgery that on monitor BP was up the whole time they were there. Diabetes: Does not follow up a diabetic diet. Is a sweet eater but not a big eater. Eats more snacks. Emotionally is stable. Memory is still significantly an issues. Still has occasional hallucinations. Is not upset or angry. Is happy. Weight is down but not eating as much. Discussed using ensure etc. Very particular about what to eat. Has seen neuro and declined psych. MEDICATIONS: No current outpatient medications on file. No current facility-administered medications for this visit. 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, radiation, surgery Personal history of colonic polyps PAST SURGICAL HISTORY Procedure Laterality Date COLONOSCOPY FLX DX W/COLLJ SPEC WHEN PFRMD [id number] Colonoscopy COLONOSCOPY FLX DX W/COLLJ SPEC WHEN PFRMD 08/04/2013 Colonoscopy COLSC FLX W/RMVL OF TUMOR POLYP LESION SNARE TQ 12/17/07 EGD [id number] PAST SURGICAL HISTORY OF thyroidectomy, partial FAMILY HISTORY Problem Relation Age of Onset Seizures Mother Cancer Father Lung CA Heart Sister Social History Tobacco Use Smoking status: Former Packs/day: 1.00 Years: 30.00 Additional pack years: 0.00 Total pack years: 30.00 Types: Cigarettes Quit date: 02/12/2003 Years since quittin.7 Smokeless tobacco: Never Substance Use Topics Alcohol use: No Drug use: No Reviewed current medications, allergies, past medical history, surgical history, family history and social history today. REVIEW OF SYSTEMS All other reviewed and negative other than HPI. HEALTH MAINTENANCE: Reviewed health maintenance issues today and recommended the following in detail. Dilated Retinal Exam Never done Hepatitis B Vaccine(1 of 3 - Risk 3-dose series) Never done Diabetic Foot Exam due on 10/10/2022 Influenza Vaccine(1) due on 10/13/2022 Covid-19 Vaccine( season) due on 10/13/2022 HbA1C due on 11/08/2022 VITALS: BP 132/84 Pulse 107 Wt 64.4 kg (142 lb) SpO2 99% BMI 26.83 kg/m Last 4 Encounter Wt Readings: Date: Wt: 05/12/2022 67.1 kg (148 lb) 10/10/2021 67.1 kg (148 lb) 04/09/2021 67.1 kg (148 lb) 10/19/2020 68.5 kg (151 lb) PHYSICAL EXAMINATION: General appearance: Well appearing, alert, in no acute distress, well-hydrated, well nourished. Skin: Skin color, texture, turgor normal, no suspicious rashes or lesions Head: Normocephalic, no masses, lesions, tenderness or abnormalities Lungs: Lungs clear to auscultation. No wheezing, rhonchi, rales Heart: RRR without murmur, gallop, or rubs. No ectopy Abdomen: Normal abdominal exam, Abdomen soft, non-tender. Bowel sounds normal. No masses, organomegaly Extremities: No deformities, edema, skin discoloration, clubbing or cyanosis. Good capillary refill. Musculoskeletal: No joint swelling, deformity, or tenderness Feet:Shoes and socks removed, No deformities, ulcers, calluses, normal distal pulses, and sensitive to 10 gm monofilament ASSESSMENT/PLAN: 1. Benign hypertension with CKD (chronic kidney disease) stage III ([facility]) - ICD9: 403.10, 585.3, ICD10: I12.9, N18.30 (primary diagnosis) - Controlled - Continue current medications - BASIC METABOLIC PNL 2. Chronic obstructive pulmonary disease, unspecified COPD type ([facility]) - ICD9: 496, ICD10: J44.9 - stable. 3. Gastroesophageal reflux disease, unspecified whether esophagitis present - ICD9: 530.81, ICD10: K21.9 - stable. 4. Mental and behavioral problem - ICD9: V40.9, ICD10: F48.9, F69 - recommended no driving. Refuses tx. 5. Hypothyroidism, unspecified type - ICD9: 244.9, ICD10: E03.9 - labs have been good. 6. Type 2 diabetes mellitus with stage 3 chronic kidney disease, without long-term current use of insulin, unspecified whether stage 3a or 3b CKD ([facility]) - ICD9: 250.40, 585.3, ICD10: E11.22, N18.30 - follow labs. Watch diet. - HGB A1C 7. Need for influenza vaccination - ICD9: V04.81, ICD10: Z23 - INFLUENZA VACCINE, PRSV FREE, AGE 65+ YR, HIGH DOSE, QUADRIVALENT (FLUZONE HIGH-DOSE) Ricci Lozano MD A1c documented in this encounter [facility] 06-02-2022 Note HNO ID: [id number] Author: RT Desi(R) Service: Nuclear Medicine Author Type: Technologist Type: Progress Notes Filed: 06/02/2022 8:49 AM Note Text: RADIOLOGY SERVICE PROGRESS NOTE SERVICE DATE: 06/02/2022 SERVICE TIME: 08:05M PATIENT IDENTITY VERIFICATION COMPLETED USING TWO (2) STANDARD IDENTIFIERS: Name and Date of confirmed by patient verbally FALL SCREENING: Has the patient had 2 falls in the last year or 1 fall with injury or currently using an Ambulatory Assistive Device (Walker, Cane, Wheelchair, Crutches, etc.)? No PATIENT GENDER DATA: .male ALLERGIES: Reviewed and unchanged MEDICATIONS REVIEWED: No PATIENT RELEVANT IMPLANT DATA REVIEWED: Not Applicable CREATININE: Creatinine Date Value Ref Range Status 05/08/2022 1.42 (H) 0.73 - 1.22 mg/dL Final 11/02/2021 1.41 (H) 0.73 - 1.22 mg/dL Final 10/04/2021 1.55 (H) 0.73 - 1.22 mg/dL Final Estimated Glomerular Filtration Rate Date Value Ref Range Status 05/08/2022 49 (L) >=60 mL/min/1.73m? Final Comment: Estimated Glomerular Filtration Rate (eGFR) is calculated using the 2020 CKD-EPI creatinine equation. This equation utilizes serum creatinine, sex, and age as parameters. The creatinine assay has traceable calibration to isotope dilution-mass spectrometry. Refer to KDIGO guidelines for clinical interpretation. In patients with unstable renal function, e.g. those with acute kidney injury, the eGFR may not accurately reflect actual GFR. eGFR- Date Value Ref Range Status 04/08/2021 59 Final P.O.C.T. RESULTS: N/A June 02, [address] PERFORMED: No IV SITE: Ambulatory: A peripheral IV was started in the Left hand with a Angio cath: 24 gauge. POST EXAM PIV STATUS: Discontinued PROCEDURE TYPE: NM INJECT: Whole Body Bone Scan. 21.2 mCi Tc99m MDP. No other medications given.. ADMINISTRATION TIME: 08:18 PATIENT DISCHARGED TO: Ambulatory patient, left [place] department area. A Diagnostic radioactive procedure has taken place, with no further precautions necessary other than routine body substance precautions. More information regarding radiation safety can be found using this link: [email or web address] [email or web address] SIGNATURE: RT Desi(R) PATIENT NAME: [place] DATE: June 02, 2022 TIME: 8:48 AM PAGER/CONTACT #: [facility] 06-02-2022 History of Presen t illness Narrative RADIOLOGY SERVICE PROGRESS NOTE SERVICE DATE: 06/02/2022 SERVICE TIME: 08:05M PATIENT IDENTITY VERIFICATION COMPLETED USING TWO (2) STANDARD IDENTIFIERS: Name and Date of confirmed by patient verbally FALL SCREENING: Has the patient had 2 falls in the last year or 1 fall with injury or currently using an Ambulatory Assistive Device (Walker, Cane, Wheelchair, Crutches, etc.)? No PATIENT GENDER DATA: .male ALLERGIES: Reviewed and unchanged MEDICATIONS REVIEWED: No PATIENT RELEVANT IMPLANT DATA REVIEWED: Not Applicable CREATININE: Creatinine Date Value Ref Range Status 05/08/2022 1.42 (H) 0.73 - 1.22 mg/dL Final 11/02/2021 1.41 (H) 0.73 - 1.22 mg/dL Final 10/04/2021 1.55 (H) 0.73 - 1.22 mg/dL Final Estimated Glomerular Filtration Rate Date Value Ref Range Status 05/08/2022 49 (L) >=60 mL/min/1.73m Final Comment: Estimated Glomerular Filtration Rate (eGFR) is calculated using the 2020 CKD-EPI creatinine equation. This equation utilizes serum creatinine, sex, and age as parameters. The creatinine assay has traceable calibration to isotope dilution-mass spectrometry. Refer to KDIGO guidelines for clinical interpretation. In patients with unstable renal function, e.g. those with acute kidney injury, the eGFR may not accurately reflect actual GFR. eGFR- Date Value Ref Range Status 04/08/2021 59 Final P.O.C.T. RESULTS: N/A June 02, [address] PERFORMED: No IV SITE: Ambulatory: A peripheral IV was started in the Left hand with a Angio cath: 24 gauge. POST EXAM PIV STATUS: Discontinued PROCEDURE TYPE: NM INJECT: Whole Body Bone Scan. 21.2 mCi Tc99m MDP. No other medications given.. ADMINISTRATION TIME: 08:18 PATIENT DISCHARGED TO: Ambulatory patient, left [place] department area. A Diagnostic radioactive procedure has taken place, with no further precautions necessary other than routine body substance precautions. More information regarding radiation safety can be found using this link: [email or web address] [email or web address] SIGNATURE: RT Desi(R) PATIENT NAME: [place] DATE: June 02, 2022 TIME: 8:48 AM PAGER/CONTACT #: documented in this encounter [facility] 05-17-2022 Miscellaneous Notes Pts daughter in law called and is notified of providers results and instructions. She voices understanding. Pt put through to scheduling to set up Whole body bone scan. Rosenda Snowden RN Labs are stable, except his bone alk phos is up. Recheck bone scan if he will allow it to make sure bones are ok. documented in this encounter [facility] 05-12-2022 Note HNO ID: [id number] Author: Ricci Lozano MD Service: ? Author Type: Physician Type: Progress Notes Filed: 05/12/2022 3:46 PM Note Text: Patient presents with: Follow Up HPI: Patient presents today for office visit for follow up. Overall not feeling good. Feels tired most days. Per [id number] his sleep pattern is off. He states he doesn't sleep good. Emotionally is about the same. Is still forgetful. Still has occasional auditory hallucinations. Family is very involved. No wandering. Is safe at home. Eating and drinking well No falls No elimination issues. Not taking any meds. Refuses to take any. No significant chest pain. No new shortness of breath. Mostly with exertion. No new edema. Component Latest Ref Rng AND Units 05/08/2022 WBC 3.70 - 11.00 k/uL 7.13 RBC 4.20 - 6.00 m/uL 5.39 Hemoglobin 13.0 - 17.0 g/dL 16.6 Hematocrit 39.0 - 51.0 % 48.5 MCV 80.0 - 100.0 fL 90.0 MCH 26.0 - 34.0 pg 30.8 MCHC 30.5 - 36.0 g/dL 34.2 RDW-CV 11.5 - 15.0 % 12.5 Platelet Count 150 - 400 k/uL 187 MPV 9.0 - 12.7 fL 11.7 Neut% % 53.0 Abs Neut (ANC) 1.45 - 7.50 k/uL 3.78 Lymph% % 28.8 Abs Lymph 1.00 - 4.00 k/uL 2.05 [place]% % 9.4 Abs [place] <0.87 k/uL 0.67 Eosin% % 8.1 Abs Eosin <0.46 k/uL 0.58 (H) Baso% % 0.6 Abs Baso <0.11 k/uL 0.04 Immature Gran % % 0.1 IMMATURE GRANS (ABS) <0.10 k/uL <0.03 NRBC /100 WBC 0.0 Absolute nRBC <0.01 k/uL <0.01 DTYPE Auto Protein, Total 6.3 - 8.0 g/dL 7.1 Albumin 3.9 - 4.9 g/dL 4.0 Calcium 8.5 - 10.2 mg/dL 8.9 Bilirubin, Total 0.2 - 1.3 mg/dL 1.1 Alkaline Phosphatase 38 - 113 U/L 131 (H) AST 14 - 40 U/L 25 ALT 10 - 54 U/L 22 Glucose 74 - 99 mg/dL 123 (H) BUN 9 - 24 mg/dL 15 Creatinine 0.73 - 1.22 mg/dL 1.42 (H) Sodium 136 - 144 mmol/L 141 Potassium 3.7 - 5.1 mmol/L 4.0 Chloride 97 - 105 mmol/L 107 (H) CO2 22 - 30 mmol/L 23 Anion Gap 9 - 18 mmol/L 11 eGFR >=60 mL/min/1.73mA? 49 (L) Cholesterol, Total <200 mg/dL 167 Triglyceride <150 mg/dL 97 HDL Cholesterol >39 mg/dL 37 (L) Non HDL Cholesterol <130 mg/dL 130 (H) Fasting Time hrs 12 VLDL Cholesterol <30 mg/dL 19 TC:HDL Ratio <5.10 4.51 LDL Cholesterol <100 mg/dL 111 (H) LDL:HDL Ratio <2.54 3.00 (H) Hemoglobin A1C 4.3 - 5.6 % 6.7 (H) Estimated Average Glucose mg/dL 146 MEDICATIONS: No current outpatient medications on file. No current facility-administered medications for this visit. 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, radiation, surgery Personal history of colonic polyps PAST SURGICAL HISTORY Procedure Laterality Date COLONOSCOPY FLX DX W/COLLJ SPEC WHEN PFRMD [id number] Colonoscopy COLONOSCOPY FLX DX W/COLLJ SPEC WHEN PFRMD 08/04/2013 Colonoscopy COLSC FLX W/RMVL OF TUMOR POLYP LESION SNARE TQ 12/17/07 EGD [id number] PAST SURGICAL HISTORY OF thyroidectomy, partial FAMILY HISTORY Problem Relation Age of Onset Seizures Mother Cancer Father Lung CA Heart Sister Social History Tobacco Use Smoking status: Former Packs/day: 1.00 Years: 30.00 Pack years: 30.00 Types: Cigarettes Quit date: 02/12/2003 Years since quittin.2 Smokeless tobacco: Never Substance Use Topics Alcohol use: No Drug use: No Reviewed current medications, allergies, past medical history, surgical history, family history and social history today. REVIEW OF SYSTEMS All other reviewed and negative other than HPI. HEALTH MAINTENANCE: Reviewed health maintenance issues today and recommended the following in detail. DILATED RETINAL EXAM will be getting. SHINGRIX VACCINE(1 of 2) Never done COVID-19 VACCINE(5 - Booster for Pfizer series) due on 08/07/2021 ADVANCE DIRECTIVE DISCUSSION -does not have dpoa. DEPRESSION ASSESSMENT Never done URINE ALBUMIN:CREATININE RATIO due on 04/08/2022 VITALS: BP 120/88 Pulse 91 Ht 154.9 cm (5' 1 ) Wt 67.1 kg (148 lb) SpO2 98% BMI 27.96 kg/m? Last 4 Encounter Wt Readings: Date: Wt: 10/10/2021 67.1 kg (148 lb) 04/09/2021 67.1 kg (148 lb) 10/19/2020 68.5 kg (151 lb) 09/13/2020 68.5 kg (151 lb) PHYSICAL EXAMINATION: General appearance: Well appearing, alert, in no acute distress, well-hydrated, well nourished. Skin: Skin color, texture, turgor normal, no suspicious rashes or lesions Head: Normocephalic, no masses, lesions, tenderness or abnormalities Lungs: Lungs clear to auscultation. No wheezing, rhonchi, rales Heart: RRR without murmur, gallop, or rubs. No ectopy Abdomen: Normal abdominal exam, Abdomen soft, non-tender. Bowel sounds normal. No masses, organomegaly Extremities: No deformities, edema, skin (more content not included)... [facility] 05-12-2022 History of Presen t illness Narrative Patient presents with: Follow Up HPI: Patient presents today for office visit for follow up. Overall not feeling good. Feels tired most days. Per [id number] his sleep pattern is off. He states he doesn't sleep good. Emotionally is about the same. Is still forgetful. Still has occasional auditory hallucinations. Family is very involved. No wandering. Is safe at home. Eating and drinking well No falls No elimination issues. Not taking any meds. Refuses to take any. No significant chest pain. No new shortness of breath. Mostly with exertion. No new edema. Component Latest Ref Rng & Units 05/08/2022 WBC 3.70 - 11.00 k/uL 7.13 RBC 4.20 - 6.00 m/uL 5.39 Hemoglobin 13.0 - 17.0 g/dL 16.6 Hematocrit 39.0 - 51.0 % 48.5 MCV 80.0 - 100.0 fL 90.0 MCH 26.0 - 34.0 pg 30.8 MCHC 30.5 - 36.0 g/dL 34.2 RDW-CV 11.5 - 15.0 % 12.5 Platelet Count 150 - 400 k/uL 187 MPV 9.0 - 12.7 fL 11.7 Neut% % 53.0 Abs Neut (ANC) 1.45 - 7.50 k/uL 3.78 Lymph% % 28.8 Abs Lymph 1.00 - 4.00 k/uL 2.05 [place]% % 9.4 Abs [place] <0.87 k/uL 0.67 Eosin% % 8.1 Abs Eosin <0.46 k/uL 0.58 (H) Baso% % 0.6 Abs Baso <0.11 k/uL 0.04 Immature Gran % % 0.1 IMMATURE GRANS (ABS) <0.10 k/uL <0.03 NRBC /100 WBC 0.0 Absolute nRBC <0.01 k/uL <0.01 DTYPE Auto Protein, Total 6.3 - 8.0 g/dL 7.1 Albumin 3.9 - 4.9 g/dL 4.0 Calcium 8.5 - 10.2 mg/dL 8.9 Bilirubin, Total 0.2 - 1.3 mg/dL 1.1 Alkaline Phosphatase 38 - 113 U/L 131 (H) AST 14 - 40 U/L 25 ALT 10 - 54 U/L 22 Glucose 74 - 99 mg/dL 123 (H) BUN 9 - 24 mg/dL 15 Creatinine 0.73 - 1.22 mg/dL 1.42 (H) Sodium 136 - 144 mmol/L 141 Potassium 3.7 - 5.1 mmol/L 4.0 Chloride 97 - 105 mmol/L 107 (H) CO2 22 - 30 mmol/L 23 Anion Gap 9 - 18 mmol/L 11 eGFR >=60 mL/min/1.73m 49 (L) Cholesterol, Total <200 mg/dL 167 Triglyceride <150 mg/dL 97 HDL Cholesterol >39 mg/dL 37 (L) Non HDL Cholesterol <130 mg/dL 130 (H) Fasting Time hrs 12 VLDL Cholesterol <30 mg/dL 19 TC:HDL Ratio <5.10 4.51 LDL Cholesterol <100 mg/dL 111 (H) LDL:HDL Ratio <2.54 3.00 (H) Hemoglobin A1C 4.3 - 5.6 % 6.7 (H) Estimated Average Glucose mg/dL 146 MEDICATIONS: No current outpatient medications on file. No current facility-administered medications for this visit. 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, radiation, surgery Personal history of colonic polyps PAST SURGICAL HISTORY Procedure Laterality Date COLONOSCOPY FLX DX W/COLLJ SPEC WHEN PFRMD [id number] Colonoscopy COLONOSCOPY FLX DX W/COLLJ SPEC WHEN PFRMD 08/04/2013 Colonoscopy COLSC FLX W/RMVL OF TUMOR POLYP LESION SNARE TQ 12/17/07 EGD [id number] PAST SURGICAL HISTORY OF thyroidectomy, partial FAMILY HISTORY Problem Relation Age of Onset Seizures Mother Cancer Father Lung CA Heart Sister Social History Tobacco Use Smoking status: Former Packs/day: 1.00 Years: 30.00 Pack years: 30.00 Types: Cigarettes Quit date: 02/12/2003 Years since quittin.2 Smokeless tobacco: Never Substance Use Topics Alcohol use: No Drug use: No Reviewed current medications, allergies, past medical history, surgical history, family history and social history today. REVIEW OF SYSTEMS All other reviewed and negative other than HPI. HEALTH MAINTENANCE: Reviewed health maintenance issues today and recommended the following in detail. DILATED RETINAL EXAM will be getting. SHINGRIX VACCINE(1 of 2) Never done COVID-19 VACCINE(5 - Booster for Pfizer series) due on 08/07/2021 ADVANCE DIRECTIVE DISCUSSION -does not have dpoa. DEPRESSION ASSESSMENT Never done URINE ALBUMIN:CREATININE RATIO due on 04/08/2022 VITALS: BP 120/88 Pulse 91 Ht 154.9 cm (5' 1 ) Wt 67.1 kg (148 lb) SpO2 98% BMI 27.96 kg/m Last 4 Encounter Wt Readings: Date: Wt: 10/10/2021 67.1 kg (148 lb) 04/09/2021 67.1 kg (148 lb) 10/19/2020 68.5 kg (151 lb) 09/13/2020 68.5 kg (151 lb) PHYSICAL EXAMINATION: General appearance: Well appearing, alert, in no acute distress, well-hydrated, well nourished. Skin: Skin color, texture, turgor normal, no suspicious rashes or lesions Head: Normocephalic, no masses, lesions, tenderness or abnormalities Lungs: Lungs clear to auscultation. No wheezing, rhonchi, rales Heart: RRR without murmur, gallop, or rubs. No ectopy Abdomen: Normal abdominal exam, Abdomen soft, non-tender. Bowel sounds normal. No masses, organomegaly Extremities: No deformities, edema, skin discoloration, clubbing or cyanosis. Good capillary refill. ASSESSMENT/PLAN: 1. Type 2 diabetes mellitus with stage 3 chronic kidney disease, without long-term current use of insulin, unspecified whether stage 3a or 3b CKD (HCC) - ICD9: 250.40, 585.3, ICD10: E11.22, N18.30 (primary diagnosis) - refuses meds. Numbers are stable. - ALBUMIN/CREAT RATIO RND UR 2. Hypothyroidism, unspecified type - ICD9: 244.9, ICD10: E03.9 - follow labs. - TSH BLD 3. Stage 3 chronic kidney disease, unspecified whether stage 3a or 3b CKD (HCC) - ICD9: 585.3, ICD10: N18.30 - stable. 4. Benign hypertension with CKD (chronic kidney disease) stage III (HCC) - ICD9: 403.10, 585.3, ICD10: I12.9, N18.30 - ok off of meds. 5. Chronic obstructive pulmonary disease, unspecified COPD type ([facility]) - ICD9: 496, ICD10: J44.9 6. Essential hypertension - ICD9: 401.9, ICD10: I10 - good control - Continue current medication(s) - Goal of BP <130/80 7. Elevated alkaline phosphatase level - ICD9: 790.5, ICD10: R74.8 - ALK PHOS ISOENZYM BL 8. Gastroesophageal reflux disease, unspecified whether esophagitis present - ICD9: 530.81, ICD10: K21.9 9. Mental and behavioral problem - ICD9: V40.9, ICD10: F48.9, F69 Stable. Declines treatment. Ricci Lozano MD documented in this encounter [facility] documented in this encounter [facility]10-03-2022 Miscellaneous Notes* Telephone Encounter - Faith Alexis Ma - 11/14/2021 2:38 PM EDT Pt notified. Faith Alexis Ma * Telephone Encounter - Tova Matos MA - 11/11/2021 10:09 AM EDT Unable to reach patient. Left VM to return call to office. Please read below and advise. Tova Matos MA * Telephone Encounter - Ricci Lozano MD - 11/10/2021 4:06 PM EDT Bp is ok. * Telephone Encounter - Nuvia He LPN - 11/10/2021 3:57 PM EDT Manual Readin/76 Pulse: 80 Reason for blood pressure check - Last BP elevated Patient is: Taking medication as prescribed N/A Took medication today N/A If no, date medication last taken N/A Experiencing side effects N/A BP was mildly elevated at last appt 10/10/21. No BP medication changes were made at that time. Family accompanied pt today and states that they are unsure of when he may have taken the Metoprolol lastas he has been doing what he wants at home; does know that he did not take any today. Denies any chest pain, shortness of breath, dizziness, or headaches. Daily caffeine use. No personal history oftobacco use; no current exposure. Alert and orientend. Pt has been identified by name and birthdate: Yes Allergies reviewed: Yes Latex allergy: no. Medication - prescribed and OTC reviewed and updated: Yes Do you need any prescription refills prior to your next visit: No Health Maintenance: Reviewed and not up to date and provider notified Patient advised that he would be contacted if any further instructions after review by PCP. Nuvia He LPN [facility] History of Present illness Narrative* Nuvia He LPN - 11/10/2021 3:51 PM EDT Manual Readin/76 Pulse: 80 Reason for blood pressure check - Last BP elevated Patient is: Taking medication as prescribed N/A Took medication today N/A If no, date medication last taken N/A Experiencing side effects N/A BP was mildly elevated at last appt 10/10/21. No BP medication changes were made at that time. Family accompanied pt today and states that they are unsure of when he may have taken the Metoprolol lastas he has been doing what he wants at home; does know that he did not take any today. Denies any chest pain, shortness of breath, dizziness, or headaches. Daily caffeine use. No personal history oftobacco use; no current exposure. Alert and orientend. Pt has been identified by name and birthdate: Yes Allergies reviewed: Yes Latex allergy: no. Medication - prescribed and OTC reviewed and updated: Yes Do you need any prescription refills prior to your next visit: No Health Maintenance: Reviewed and not up to date and provider notified Patient advised that he would be contacted if any further instructions after review by PCP. Nuvia He LPN [facility] Instructions* Patient Instructions* Ricci Lozano MD - 10/10/2021 3:58 PM EDT [place] has agreed, with Dr. Lozano, to get labs and bp check in one month Ricci Lozano MD [facility] History of Present illness Narrative* Ricci Lozano MD - 10/10/2021 3:31 PM EDT Patient presents with: 6 Month Exam HPI: Patient presents today for office visit for HYPOTHYROID: Patient is compliant with medications: not always taking medications because of hearing voices telling him ok to not take. Isn't sure how many days is taking? Will take it if she is there to give it to him. Patient has changes in energy: No Patient has changes in hair or skin: No Patient has temperature intolerance: No Patient has weight changes: No HTN: Patient is compliant with meds No. Not taking all the time. Monitors bp at home: Yes. Denies side effects: Yes. Chest pain: No. Dyspnea: No. Edema: No. Palpitations: No. Syncope: No. Headache: No. Dizziness: No. Emotionally is stable. Component Latest Ref Rng & Units 10/04/2021 WBC 3.70 - 11.00 k/uL 6.77 RBC 4.20 - 6.00 m/uL 5.41 Hemoglobin 13.0 - 17.0 g/dL 16.7 Hematocrit 39.0 - 51.0 % 48.8 MCV 80.0 - 100.0 fL 90.2 MCH 26.0 - 34.0 pg 30.9 MCHC 30.5 - 36.0 g/dL 34.2 RDW-CV 11.5 - 15.0 % 12.5 Platelet Count 150 - 400 k/uL 197 MPV 9.0 - 12.7 fL 11.5 Absolute nRBC <0.01 k/uL <0.01 Glucose 74 - 99 mg/dL 113 (H) BUN 9 - 24 mg/dL 12 Creatinine 0.73 - 1.22 mg/dL 1.55 (H) Sodium 136 - 144 mmol/L 142 Potassium 3.7 - 5.1 mmol/L 4.3 Chloride 97 - 105 mmol/L 103 CO2 22 - 30 mmol/L 26 Anion Gap 9 - 18 mmol/L 13 Calcium 8.5 - 10.2 mg/dL 9.1 eGFR >=60 mL/min/1.73m 44 (L) Hemoglobin A1C 4.3 - 5.6 % 6.8 (H) Estimated Average Glucose mg/dL 148 TSH 0.270 - 4.200 mIU/L 3.040 MEDICATIONS: Current Outpatient Medications Medication Sig levothyroxine (SYNTHROID) 50 mcg tablet Take 1 tablet by mouth once daily. metoprolol tartrate, short acting, (LOPRESSOR) 100 mg tablet Take 1 tablet by mouth twice daily. No current facility-administered medications for this visit. 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, radiation, surgery Personal history of colonic polyps PAST SURGICAL HISTORY Procedure Laterality Date COLONOSCOPY FLX DX W/COLLJ SPEC WHEN PFRMD [id number] Colonoscopy COLONOSCOPY FLX DX W/COLLJ SPEC WHEN PFRMD 08/04/2013 Colonoscopy COLSC FLX W/RMVL OF TUMOR POLYP LESION SNARE TQ 12/17/07 EGD [id number] PAST SURGICAL HISTORY OF thyroidectomy, partial FAMILY HISTORY Problem Relation Age of Onset Seizures Mother Cancer Father Lung CA Heart Sister Social History Tobacco Use Smoking status: Former Packs/day: 1.00 Years: 30.00 Pack years: 30.00 Types: Cigarettes Quit date: 02/12/2003 Years since quittin.6 Smokeless tobacco: Never Substance Use Topics Alcohol use: No Drug use: No Reviewed current medications, allergies, past medical history, surgical history, family history andsocial history today. REVIEW OF SYSTEMS All other reviewed and negative other than HPI. HEALTH MAINTENANCE: Reviewed health maintenance issues today and recommended the following in detail. DILATED RETINAL EXAM-recommended. DIABETIC FOOT EXAM due on 11/05/2021 VITALS: BP 122/82 Pulse 84 Wt 67.1 kg (148 lb) BMI 27.96 kg/m Last 4 Encounter Wt Readings: Date: Wt: 04/09/2021 67.1 kg (148 lb) 10/19/2020 68.5 kg (151 lb) 09/13/2020 68.5 kg (151 lb) 05/17/2020 68 kg (150 lb) PHYSICAL EXAMINATION: General appearance: Well appearing, alert, in no acute distress, well-hydrated, well nourished. Skin: Skin color, texture, turgor normal, no suspicious rashes or lesions Head: Normocephalic, no masses, lesions, tenderness or abnormalities Lungs: Lungs clear to auscultation. No wheezing, rhonchi, rales Heart: RRR without murmur, gallop, or rubs. No ectopy Abdomen: Normal abdominal exam, Abdomen soft, non-tender. Bowel sounds normal. No masses, organomegaly Extremities: No deformities, edema, skin discoloration, clubbing or cyanosis. Good capillary refill. Musculoskeletal: No joint swelling, deformity, or tenderness Feet:Shoes and socks removed, No deformities, ulcers, calluses, normal distal pulses, and sensitiveto 10 gm monofilament ASSESSMENT/PLAN: 1. Essential hypertension - ICD9: 401.9, ICD10: I10 (primary diagnosis) - declining meds. Recheck bp in one month and bmp off of meds. 2. Gastroesophageal reflux disease, unspecified whether esophagitis present - ICD9: 530.81, ICD10: K21.9 - stable. 3. 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 Recheck labs in six months - HGB A1C - COMP METABOLIC PANEL - LIPID PANEL BASIC - CBC + DIFF 4. Hypothyroidism, unspecified type - ICD9: 244.9, ICD10: E03.9 - refusing meds. Check labs in one month to make sure is stable. - TSH BLD 5. Stage 3 chronic kidney disease, unspecified whether stage 3a or 3b CKD (HCC) - ICD9: 585.3, ICD10: N18.30 - BASIC METABOLIC PNL Ricci Lozano RTO in six months and prn. [facility] History of Past illness Narrative* Problem Noted Date Resolved Date H/O colonoscopy 06/19/2017 05/12/2022 Overview: 2013 Dr. Ureña, sigmoid diverticulosis, surveillance 10 2023 Hyperglycemia 12/18/2016 01/02/2018 Neoplasm of uncertain behavior of skin 7 02/01/2007 PAIN NECK 09/25/2005 12/17/2015 Essential hypertension, benign 1 04/04/2006 Malignant neoplasm of thymus, heart, 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 documented as of this encounter (statuses as of 05/12/2022) [facility] of [facility] illness Narrative* Problem Noted Date Resolved Date H/O colonoscopy 06/19/2017 05/12/2022 Overview: 2013 Dr. Ureña, sigmoid diverticulosis, surveillance 10 years 2023 Hyperglycemia 12/18/2016 01/02/2018 Neoplasm of uncertain behavior of skin 7 02/01/2007 PAIN NECK 09/25/2005 12/17/2015 Essential hypertension, benign 1 04/04/2006 Malignant neoplasm of thymus, heart, 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 documented as of this encounter (statuses as of 05/17/2022) [facility] of [facility] illness Narrative* Problem Noted Date Diagnosed Date Resolved Date H/O colonoscopy 06/19/2017 05/12/2022 Overview: 2013 Dr. Ureña, sigmoid diverticulosis, surveillance 10 years 2023 Hyperglycemia 12/18/2016 01/02/2018 Essential hypertension 02/01/200711/24 Neoplasm of uncertain behavior of skin 07/20/2006 02/01/2007 PAIN NECK 09/25/2005 12/17/2015 Essential hypertension, benign 02/01/2007 Malignant neoplasm of thymus , heart, and mediastinum 09/16/2007 documented as of this encounter (statuses as of 11/24/2022) [facility] Narrative* Problem Noted Date Diagnosed Date Resolved Date H/O colonoscopy 06/19/2017 05/12/2022 Overview: 2014 Dr. Ureña, sigmoid diverticulosis, surveillance 10 years 2023 Hyperglycemia 12/18/2016 01/02/2018 Essential hypertension 02/01/200711/24 Neoplasm of uncertain behavior of skin 07/20/2006 02/01/2007 PAIN NECK 09/25/2005 12/17/2015 Essential hypertension, benign 02/01/2007 Malignant neoplasm of thymus , heart, and mediastinum 09/16/2007 documented as of this encounter (statuses as of 12/17/2022) [facility] of [facility] illness Narrative* Problem Noted Date Resolved Date Hyperglycemia 12/18/2016 01/02/2018 Neoplasm of uncertain behavior of skin 7 02/01/2007 PAIN NECK 09/25/2005 12/17/2015 Essential hypertension, benign 1 04/04/2006 Malignant neoplasm of thymus, heart, 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 documented as of this encounter (statuses as of 10/10/2021) [facility] Narrative* Problem Noted Date Resolved Date Hyperglycemia 12/18/2016 01/02/2018 Neoplasm of uncertain behavior of skin 7 02/01/2007 PAIN NECK 09/25/2005 12/17/2015 Essential hypertension, benign 1 04/04/2006 Malignant neoplasm of thymus, heart, 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 documented as of this encounter (statuses as of 11/10/2021) [facility] Narrative* Problem Noted Date Resolved Date Hyperglycemia 12/18/2016 01/02/2018 Neoplasm of uncertain behavior of skin 7 02/01/2007 PAIN NECK 09/25/2005 12/17/2015 Essential hypertension, benign 1 04/04/2006 Malignant neoplasm of thymus, heart, 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 documented as of this encounter (statuses as of 11/14/2021) [facility] Essential hypertension- Primary Unspecified essential hypertension Gastroesophageal reflux disease, unspecified whether esophagitis present 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) Hypothyroidism, unspecified type Stage 3 chronic kidney disease, unspecified whether stage 3a or 3b CKD (HCC) [facility] Diagnosis Essential hypertension- Primary Unspecified essential hypertension [facility]* Diagnosis Elevated alkaline phosphatase level- Primary Other nonspecific abnormal serum enzyme levels [facility] Diagnosis Benign hypertension with CKD (chronic kidney disease) stage III (HCC)- Primary Benign hypertensive kidney disease with chronic kidney disease stage I through stage IV, or unspecified Chronic obstructive pulmonary disease, unspecified COPD type (HCC) Gastroesophageal reflux disease, unspecified whether esophagitis present Mental and behavioral problem Hypothyroidism, unspecified type Type 2 diabetes mellitus with stage 3 chronic kidney disease, without long-term current use of insulin, unspecified whether stage 3a or 3b CKD (HCC) Need for influenza vaccination Need for prophylactic vaccination and inoculation against influenza documented in this encounter [facility] for referral (narrative)* Diagnostic Procedure Only (Routine) - Authorized Specialty Diagnoses / Procedures Referred By Contac t Referred To Contact MOLECULAR & FUNCTIONAL IMAGING Diagnoses Elevated alkaline phosphatase level Procedures NM BONE WHOLE BODY BONE &/JOINT IMAGING WHOLE BODY Ricci Lozano MD [address] [place] [address] Molecular & Functional Imaging [address] [place] [id number] Referral ID Status Reason Start Date Expiration Date Visits Requested Visits Authorized [id number] Authorized Auto-Generat ed Referral 05/17/2022 06/16/2023 1 1 [facility] Summary Purpose Family History No Family History Records Found Advance Directives No Advanced Directives Records Found Additional Source Comments Source Comments (unrecognize d section and content) In the event this informatio n is protected by the Federal Confidentiality of Alcohol and Drug Abuse Patient Records regulations: The Federal rules restrict any use of the information to criminally investigate or prosecute any alcohol or drug abuse patient.[facility] the event this information is protected by the Federal Confidentiality of Alcohol and Drug Abuse Patient Records regulations: The Federal rules restrict any use of the information to criminally investigate or prosecute any alcohol or drug abuse patient.[facility] the event this information is protected by the Federal Confidentiality of Alcohol and Drug Abuse Patient Records regulations: The Federal rules restrict any use of the information to criminally investigate or prosecute any alcohol or drug abuse patient.[facility] the event this information is protected by the Federal Confidentiality of Alcohol and Drug Abuse Patient Records regulations: The Federal rules restrict any use of the information to criminally investigate or prosecute any alcohol or drug abuse patient.[facility] the event this information is protected by the Federal Confidentiality of Alcohol and Drug Abuse Patient Records regulations: The Federal rules restrict any use of the information to criminally investigate or prosecute any alcohol or drug abuse patient.[facility] the event this information is protected by the Federal Confidentiality of Alcohol and Drug Abuse Patient Records regulations: The Federal rules restrict any use of the information to criminally investigate or prosecute any alcohol or drug abuse patient.[facility] the event this information is protected by the Federal Confidentiality of Alcohol and Drug Abuse Patient Records regulations: The Federal rules restrict any use of the information to criminally investigate or prosecute any alcohol or drug abuse patient.[facility] Reason for Visit (unrecogniz ed section and content) Reason Comments Blood Pressure Check Reason Comments Follow Up Reason Comments Results Reason Onset Date Comments Hypertension Immunizations 11/24/2022 Flu vaccination Reason Comments Radiology [place] Care Teams (unrecognized sec tion and content) Chemical Sales Representative Relationship Specialty Start Date End Date Ricci Lozano MD [address], [place] [id number] PCP - General Family Medicine 10/16/12 Chemical Sales Representative Relationship Specialty Start Date End Date Ricci Lozano MD [address] [place], [place] [id number] PCP - General Family Medicine 10/16/12 Chemical Sales Representative Relationship Specialty Start Date End Date Ricci Lozano MD [address] [place], [place] [id number] PCP - General Family Medicine 10/16/12 Chemical Sales Representative Relationship Specialty Start Date End Date Ricci Lozano MD [address], [place] [id number] PCP - General Family Medicine 10/16/12 Chemical Sales Representative Relationship Specialty Start Date End Date Ricci Lozano MD [address], [place] [id number] PCP - General Family Medicine 10/16/12 Chemical Sales Representative Relationship Specialty Start Date End Date Ricci Lozano MD [address] [place], [place] [id number] PCP - General Family Medicine 10/16/12 (unrecognized sect ion and content) No Status Records Found INFORMATION SOURCE (unrecogn ized section and content) FOR RECORDS PERTAINING TO PATIENTS WHO ARE OR HAVE BEEN ENROLLED IN A CHEMICAL DEPENDENCY/SUBSTANCEABUSE PROGRAM, SOME INFORMATION MAY BE OMITTED. This clinical summary was aggregated from multiple sources. Caution should be exercised in using it in the provision of clinical care. This summary normalizes information from multiple sources, and as a consequence, information in this document may materially change the coding, format and clinical context of patient data. In addition, data may be omitted in some cases. CLINICAL DECISIONS SHOULD BE BASED ON THE PRIMARY CLINICAL RECORDS. [facility] [employer] [facility]. provides no warranty or guarantee of the accuracy or completeness of information in this document.
== END | disposition home or self-care (01) ==
LOC: CT 17:36
PROVIDERS: PCP Family Medicine; Referring Provider Nurse Practitioner Acute Care; Visit Provider Nurse Practitioner Acute Care
DX: R93.89 Abnormal findings on diagnostic imaging of other specified body structures (principal)
CPT/HCPCS: 71250

== ENCOUNTER → 2023-04-04 | Outpatient (CLI) | payer MEDICARE, SELFPAY ==
--- NOTE | 2023-04-04 14:04 | ECHOCS_ITS ---
Reason For Study: CORONARY ARTERY DISEASE Procedure This was a 2D Doppler, Color Flow transthoracic echocardiogram. Contrast injection was performed. Exam performed in department. Left Ventricle Mildly dilated left ventricle. The left ventricular ejection fraction is 35 %. Normal diastology for age. Right Ventricle Normal right ventricle. Atria The left and right atria are normal. Mitral Valve Moderately severe (3+) mitral valve insufficiency. Tricuspid Valve Mild tricuspid valve insufficiency. Normal pulmonary artery pressure. Aortic Valve Trisinus/trileaflet aortic valve. Mild-Moderate (1-2+) aortic valve insufficiency. Pulmonic Valve The pulmonic valve is not well visualized. Great Vessels Normal sized aortic root. Medication 22 gauge I.V. with prn adaptor inserted into left arm. Diluted definity 2ml given slow IV push to enhance endocardial definition. MMode/2D Measurements & Calculations LVIDd: 4.4 cm IVSd: 0.75 cm LVOT diam: 1.9 cm LVIDs: 3.5 cm LVPWd: 0.81 cm LVOT area: 2.7 cm2 RVDd: 3.2 cm FS: 21.2 % Ao root diam: 3.5 cm LAV(MOD-bp): 32.7 ml LVAd ap4: 28.7 cm2 LAV(MOD-bp) Indexed: 20.8 ml/m2 LVLd ap4: 8.0 cm LAV(MOD-sp2): 31.0 ml EDV(MOD-sp4): 82.9 ml LAV(MOD-sp4): 31.8 ml EDV(sp4-el): 87.8 ml LVAs ap4: 23.2 cm2 LVLs ap4: 7.8 cm ESV(MOD-sp4): 54.0 ml ESV(sp4-el): 58.7 ml EF(MOD-sp4): 34.9 % EF(sp4-el): 33.1 % LVAd ap2: 26.2 cm2 SV(MOD-sp4): 28.9 ml SV(MOD-sp2): 25.9 ml LVLd ap2: 7.5 cm EDV(MOD-sp2): 73.8 ml EDV(sp2-el): 77.5 ml LVAs ap2: 21.2 cm2 LVLs ap2: 7.5 cm ESV(MOD-sp2): 47.8 ml ESV(sp2-el): 50.9 ml EF(MOD-sp2): 35.2 % SV(sp4-el): 29.1 ml LA dimension(2D): 3.7 cm LA A4 area: 14.4 cm2 RA A4 area: 10.4 cm2 TAPSE: 1.2 cm Time Measurements MV dec time: 0.12 sec Doppler Measurements & Calculations MV E max ariel: 97.0 cm/sec Lat Peak E' Ariel: 9.6 cm/sec Med Peak E' Ariel: 6.8 cm/sec MV A max ariel: 84.3 cm/sec E/E' lat: 10.1 E/E' med: 14.3 MV E/A: 1.2 Ao V2 max: 119.1 cm/sec AI max ariel: 388.7 cm/sec MV dec slope: 798.5 cm/sec2 Ao max P.7 mmHg AI max P.5 mmHg Ao V2 mean: 87.8 cm/sec Ao mean P.5 mmHg AI dec slope: 343.7 cm/sec2 Ao V2 VTI: 26.8 cm AI P1/2t: 331.3 msec AV (velocity ratio): 0.80 ELDA(I,D): 2.2 cm2 ELDA(V,D): 2.2 cm2 LV V1 max: 94.8 cm/sec MR max ariel: 528.0 cm/sec SV(LVOT): 59.0 ml LV V1 max P.6 mmHg MR max P.5 mmHg LV V1 mean P.3 mmHg MR mean ariel: 430.0 cm/sec LV V1 mean: 71.2 cm/sec MR mean P.7 mmHg LV V1 VTI: 21.5 cm MR VTI: 174.7 cm PA V2 max: 78.1 cm/sec TR max ariel: 235.3 cm/sec PA max PG (full): 0.39 mmHg TR max P.1 mmHg ECHO/Echo Complete W/ Contrast Interpretation Summary Mildly dilated left ventricle. The left ventricular ejection fraction is 35 %. Moderately severe (3+) mitral valve insufficiency. Mild tricuspid valve insufficiency. Mild-Moderate (1-2+) aortic valve insufficiency. Ordering Physician: Alia Victoria Referring Physician: Alia Victoria Performed By: Lina Pickard RDCS
--- OUTSIDE RECORDS SUMMARY | 2023-04-04 17:43 | XMS RPT_ITS | CCD ---
Author Name Unknown Address [address] [place] [address] Organization [facility] Care Team Providers Care Child Health Associate Name Role Phone Ricci Lozano MD Primary Care Provider [phone] RICCI LOZANO Primary Care Unavailable BLAKE, RICCI Rudd Referring Unavailable BLAKE, RICCI Rudd Primary Care Unavailable BLAKE, RICCI Rudd Attending Unavailable BLAKE, RICCI Rudd Primary Care Unavailable BLAKE, RICCI Rudd Referring Unavailable BLAKE, RICCI Rudd Primary Care Unavailable HAAGEN, FABIOLA Attending Unavailable HAAGEN, FABIOLA Referring Unavailable BLAKE, RICCI Rudd Primary Care Unavailable FABIOLA ARAUJO Attending Unavailable BLAKE, RICCI Rudd Primary Care Unavailable BLAKE, RICCI Rudd Referring Unavailable BLAKE, RICCI Rudd Primary Care Unavailable HAAGEN, FABIOLA Referring Unavailable BLAKE, RICCI Rudd Primary Care Unavailable HAAGEN, FABIOLA Referring Unavailable BLAKE, RICCI Rudd Primary Care Unavailable HAAGEN, FABIOLA Referring Unavailable BLAKE, RICCI Rudd Primary Care Unavailable HAAGEN, FABIOLA Attending Unavailable HAAGEN, FABIOLA Referring Unavailable CLEMENT SAWYER Attending Unavailable BLAKE, RICCI Rudd Primary Care Unavailable HAAGEN, FABIOLA Referring Unavailable CLEMENT SAWYER Attending Unavailable BLAKE, RICCI Rudd Primary Care Unavailable BLAKE, RICCI Rudd Primary Care Unavailable BLAKE, RICCI Rudd Referring Unavailable BLAKE, RICCI Rudd Primary Care Unavailable BLAKE, RICCI Rudd Attending Unavailable BLAKE, RICCI Rudd Primary Care Unavailable BLAKE, RICCI Rudd Referring Unavailable Allergies Allergy Classification Reported Allergen(s) Allergy Type Date of Onset Reaction(s) Facility (9 sources) Lisinopril; Translations: [LISINOPRIL] Drug Allergy 10-13-2004 [facility] Medications Completed/Discontinued Medications Medication Drug Class(es) Dates Sig (Normalized) Sig (Original) amiodarone hydrochloride 200 mg oral tablet (1 source) Antiarrhythmic Start: 01-29-2023 amiodarone (PACERONE) 200 mg tablet 1 tablet once daily. 0 01/29/2023 Active Problems Active Problems Problem Classification Problem Date Documented Da te Episodic/Chronic Anxiety disorders (10 sources) Mental health problem; Translations: [Nonpsychotic mental disorder, unspecified] Onset: 2 04-09-2021 Chronic Cardiac dysrhythmias (1 source) Paroxysmal atrial fibrillation; Translations: [Paroxysmal atrial fibrillation (HCC)] Onset: 3 Chronic Chronic kidney disease (16 sources) Chronic kidney disease stage 3; Translations: [Stage 3 chronic kidney disease, unspecified whether stage 3a or 3b CKD (HCC)] Onset: 2 Chronic Chronic kidney disease (1 source) Chronic kidney disease; Translations: [Stage 3 chronic kidney disease, unspecified whether stage 3a or 3b CKD (HCC)] Onset: 2 Chronic obstructive pulmonary disease and bronchiectasis (10 sources) Chronic obstructive lung disease; Translations: [Chronic obstructive pulmonary disease, unspecified] Onset: 9 10-14-2020 Chronic Diabetes mellitus with complications (13 sources) Type 2 diabetes mellitus; Translations: [Type 2 diabetes mellitus with diabetic nephropathy] Onset: 8 Chronic Diabetes mellitus without complication (1 source) Diabetes mellitus without complication; Translations: [Type 2 diabetes mellitus with stage 3 chronic kidney disease, without long-term current use of insulin, unspecified whether stage 3a or 3b CKD (HCC)] Onset: 3 Diverticulosis and diverticulitis (8 sources) Diverticulosis of colon; Translations: [Diverticulosis of large intestine without perforation or abscess without bleeding] Onset: 8 12-17-2007 Chronic Esophageal disorders (11 sources) Gastroesophageal reflux disease; Translations: [Gastro-esophageal reflux disease without esophagitis] Chronic Essential hypertension (8 sources) Essential hypertension; Translations: [Essential (primary) hypertension] Onset: 7 Chronic Essential hypertension (1 source) Essential hypertension; Translations: [Benign hypertension with CKD (chronic kidney disease) stage III ([facility])] Onset: 3 Hyperplasia of prostate (8 sources) Benign prostatic hyperplasia; Translations: [Benign prostatic [...] immunization] 11-24-2022 Episodic Other aftercare (1 source) watermaster (current) use of anticoagulants; Translations: [Chronic anticoagulation] Onset: 3 Episodic Other and unspecified benign neoplasm (8 sources) History of polyp of colon; Translations: [Personal history of colonic polyps] 10-13-2004 Episodic Other circulatory disease (1 source) Hypotension, unspecified; Translations: [Hypotension, unspecified hypotension type] Onset: 3 Episodic Other gastrointestinal disorders (8 sources) Irritable bowel syndrome; Translations: [Irritable bowel [...] Date Episodic/Chronic Cancer; other and unspecified primary (8 sources) History of malignant neoplasm of thymus; Translations: [Personal history of other malignant neoplasm of thymus] Onset: 02-27-2007 10-14-2020 Episodic Other and unspecified benign neoplasm (8 sources) Benign neoplasm of colon; Translations: [Benign neoplasm of colon, unspecified] Onset: 12-17-2007 12-17-2007 Episodic Other liver diseases (1 source) Abnormal levels of other serum enzymes; Translations: [Elevated alkaline phosphatase level] Onset: 06-02-2022 Episodic Residual codes; unclassified (3 sources) History of colonoscopy; Translations: [Other specified postprocedural states] Onset: 06-19-2017 06-19-2017 Episodic Results Test Name Value Interpretation Reference Range Facil ity Vital Signs Date Time Vital Sign Value Performing Clinician Valerio cardona 11-24-2022 10:7781 Body weight 64.41 kg Ricci Lozano MD Work Phone: [facility] 11-24-2022 10:13-0400 Diastolic blood pressure 84 mm[Hg] Ricci Lozano MD Work Phone: [facility] 11-24-2022 10:13-0400 Heart rate 107 /min Ricci Lozano MD Work Phone: [facility] 11-24-2022 10:13-0400 SaO2% (BldA) [Mass fraction] 99 % Ricci Lozano MD Work Phone: [facility] 11-24-2022 10:13-0400 Systolic blood pressure 132 mm[Hg] Ricci Lozano MD Work Phone: [facility] 05-12-2022 15:44-0400 Diastolic blood pressure 88 mm[Hg] Ricci Lozano MD Work Phone: [facility] 05-12-2022 15:44-0400 Systolic blood pressure 120 mm[Hg] Ricci Lozano MD Work Phone: [facility] 05-12-2022 15:12-0400 Body height 154.9 cm Ricci Lozano MD Work Phone: [facility] 05-12-2022 15:12-0400 Body weight 67.13 kg Ricci Lozano MD Work Phone: [facility] 05-12-2022 15:12-0400 Heart rate 91 /min Ricci Lozano MD Work Phone: [facility] 05-12-2022 15:12-0400 SaO2% (BldA) [Mass fraction] 98 % Ricci Lozano MD Work Phone: [facility] 11-10-2021 15:58-0400 Diastolic blood pressure 76 mm[Hg] Mi Nurse Work Phone: [facility] 11-10-2021 15:58-0400 Heart rate 80 /min Mi Nurse Work Phone: [facility] 11-10-2021 15:58-0400 Systolic blood pressure 107 mm[Hg] Mi Nurse Work Phone: [facility] 10-10-2021 15:31-0400 Body weight 67.13 kg Ricci Lozano MD Work Phone: [facility] 10-10-2021 15:31-0400 Diastolic blood pressure 82 mm[Hg] Ricci Lozano MD Work Phone: [facility] 10-10-2021 15:31-0400 Heart rate 84 /min Ricci Lozano MD Work Phone: [facility] 10-10-2021 15:31-0400 Systolic blood pressure 122 mm[Hg] Ricci Lozano MD Work Phone: [facility] Encounters Encounter Date Encounter Type Care Provider Facility Start: 03-19-2023 End: 03-19-2023 ambulatory CLEMENT SAWYER Facility:[facility] Start: 03-19-2023 End: 03-19-2023 Patient encounter procedure Clement Sawyer MD Work Phone: General Surgery Procedures Date Procedure Procedure Detail Performing Clinician Start: 03-19-2023 US THYROID BIOPSY LE FT (POC) SURG USE ONLY Clement Sawyer MD Work Phone: Start: 11-24-2022 INFLUENZA VACCINE, P RSV FREE, AGE 65+ YR, HIGH DOSE, QUADRIVALENT (FLUZONE HIGH-DOSE) Ricci Lozano MD Work Phone: Plan of Treatment Date Care Activity Detail Author Start: 11-25-2023 3 comp foot exam completed Diabetic Foot Exam [facility] Start: 11-25-2023 Covid-19 Vaccine ( season) Covid-19 Vaccine ( season) [facility] Immunizations Immunization Date Immunization Notes Care Provider Kiana mesa 11-24-2022 influenza (HD-IIV4) vaccine, age 65+ yr, high dose, quadrivalent, PF (FLUZONE HIGH-DOSE) Ricci Lozano MD Work Phone: [facility] 12-17-2021 influenza (HD-IIV4) vaccine, age 65+ yr, high dose, quadrivalent, PF (FLUZONE HIGH-DOSE) Ricci Lozano MD Work Phone: [facility] Work Phone: 06-12-2021 COVID-19 original vaccine, age 12+ yr, monovalent (PFIZER-BIONTECH - CARDENAS TOP) Ricci Lozano MD Work Phone: [facility] 01-03-2021 influenza (HD-IIV4) vaccine, age 65+ yr, high dose, quadrivalent, PF (FLUZONE HIGH-DOSE) Ricci Lozano MD Work Phone: [facility] Work Phone: 11-16-2020 COVID-19 original vaccine, age 12+ yr, monovalent (PFIZER-BIONTECH - PURPLE TOP) Ricci Lozano MD Work Phone: [facility] 04-01-2020 COVID-19 vaccine, ag e 12+ yr (PFIZER-BIONTECH - PURPLE TOP) Ricci Lozano MD Work Phone: [facility] 03-12-2020 COVID-19 vaccine, ag e 12+ yr (PFIZER-BIONTECH - PURPLE TOP) Ricci Lozano MD Work Phone: [facility] 11-19-2019 influenza, high-dose , quadrivalent vaccine (FLUZONE HIGH DOSE QUADRIVALENT) Ricci Lozano MD Work Phone: [facility] 12-17-2018 influenza, high dose seasonal, preservative-free Ricci Lozano MD Work Phone: [facility] Work Phone: 12-17-2017 influenza, injectabl e, quadrivalent, preservative free Ricci Lozano MD Work Phone: [facility] Work Phone: 12-17-2017 influenza, seasonal, injectable Ricci Lozano MD Work Phone: [facility] 11-26-2016 influenza, high dose seasonal, preservative-free Ricci Lozano MD Work Phone: [facility] 12-07-2015 influenza, high dose seasonal, preservative-free Ricci Lozano MD Work Phone: [facility] 11-26-2014 influenza, seasonal, injectable Ricci Lozano MD Work Phone: [facility] 06-24-2014 pneumococcal conjuga te vaccine, 13 valent Ricci Lozano MD Work Phone: [facility] 11-17-2013 influenza, seasonal, injectable Ricci Lozano MD Work Phone: [facility] 2013 tetanus toxoid, redu joya diphtheria toxoid, and acellular pertussis vaccine, adsorbed Ricci Lozano MD Work Phone: [facility] 12-28-2009 influenza virus vacc ine, unspecified formulation Ricci Lozano MD Work Phone: [facility] Work Phone: 02-01-2009 novel influenza-H1N1 -09, preservative-free, injectable Ricci Lozano MD Work Phone: [facility] Work Phone: 11-27-2008 influenza virus vacc ine, unspecified formulation Ricci Lozano MD Work Phone: [facility] Work Phone: 05-26-2008 pneumococcal polysaccharide vaccine, 23 valent Ricci Lozano MD Work Phone: [facility] Work Phone: 01-10-2008 influenza virus vacc ine, unspecified formulation Ricci Lozano MD Work Phone: [facility] 02-01-2007 influenza virus vacc ine, unspecified formulation Ricci Lozano MD Work Phone: [facility] 01-29-2006 influenza virus vacc ine, unspecified formulation Ricci Lozano MD Work Phone: [facility] Work Phone: 11-18-2003 pneumococcal polysaccharide vaccine, 23 valent Ricci Lozano MD Work Phone: [facility] Work Phone: 03-15-2003 diphtheria and tetan us toxoids, adsorbed for pediatric use Ricci Lozano MD Work Phone: [facility] Work Phone: Payers Date Payer Category Payer Medicare MMO MEDICARE MMO MEDADVANTAGE O [id number] 2017-Present [phone] [address] [place] [address] [facility] [id number] 2017 Unknown [id number] Social History Date Type Detail Facility Start: 10-10-2021 Tobacco smoking stat us VTIS Ex-smoker [facility] End: 02-12-2003 History of tobacco use Current smoker [facility] End: 02-12-2003 History of tobacco use Cigarette Smoker [facility] Start: 10-10-2021 End: 11-24-2022 Cigarettes smoked current (pack per day) - Reported 1 [facility] Work Phone: Start: 10-10-2021 Tobacco use and exposure Smokeless tobacco non-user [facility] Start: 10-10-2021 End: 02-28-2023 Alcohol intake Current non-drinker of alcohol (finding) [facility] Start: 1940 Sex Assigned At Not on file [facility] Start: 09-30-2021 End: 10-10-2021 Exposure to SARS-CoV-2 (event) Not sure [facility] Start: 05-12-2022 End: 11-24-2022 Tobacco use panel [facility] Work Phone: Adult Depression Screening Assessment 3 [facility] Work Phone: Clinical Notes 12-18-2016 to 03-19-2023 Clement Sawyer MD - 03/19/2023 3:13 PM Nafisa Tamez LPN - 03/19/2023 2:57 PM ESTPatient InstructionsPatient Ricci Shaver MD - 11/24/2022 10:11 AM EDT Note Date & Type Note Facility 03-19-2023 Note HNO ID: [id number] Author: CLEMENT SAWYER MD Service: ? Author Type: Physician Type: Progress Notes Filed: 03/19/2023 15:44 Note Text: Preoperative diagnosis: Multinodular goiter dominant left thyroid nodule Postoperative diagnosis: The same Procedure: Ultrasound-guided fine-needle aspiration of dominant left thyroid nodule Surgeon: Silverio Procedure: Ultrasound of the left thyroid revealed a dominant nodule in the inferior aspect of the thyroid lobe. I prepped the skin with alcohol. I injected 1% lidocaine plain. Under ultrasound guidance I took 3 passes with a 22-gauge needle and plated these on glass slides. Under ultrasound guidance I took 1 more and placed that for an Afirma testing. Sterile dressings were applied and the patient tolerated the procedure well. [facility] 03-19-2023 Note HNO ID: [id number] Author: NAFISA WASSERMAN LPN Service: ? Author Type: LICENSED NURSE Type: Progress Notes Filed: 03/19/2023 15:44 Note Text: UNIVERSAL PROTOCOL / SAFETY CHECKLIST Procedure to be Performed: Ultrasound Guided Fine Needle Aspiration Thyroid left Sign In: A Moment of CARE was completed. Personnel directly involved with the procedure wore the appropriate PPE (Personal Protective Equipment). No special equipment needed. Patient/Surrogate Stated/Verified: PATIENT VERIFIED(optional for EMERGENT procedures): Patient name, Date of , Relevant allergies, and The intended procedure Time Out Communication: Intended patient and procedure match the source documents. Consent documented and matches the intended procedure. Relevant labs, photos, and/or imaging studies have been reviewed. Correct side/site marked and visible. Medications required for procedure verified. No fire risk assessment and interventions applicable. No implant(s) inserted. Sign Out: SIGN OUT (optional for EMERGENT procedures): All specimen containers correctly labeled. No instruments, equipment or retained foreign bodies applicable. Nafisa Wasserman LPN [facility] 03-19-2023 History of Presen t illness Narrative Preoperative diagnosis: Multinodular goiter dominant left thyroid nodule Postoperative diagnosis: The same Procedure: Ultrasound-guided fine-needle aspiration of dominant left thyroid nodule Surgeon: Silverio Procedure: Ultrasound of the left thyroid revealed a dominant nodule in the inferior aspect of the thyroid lobe. I prepped the skin with alcohol. I injected 1% lidocaine plain. Under ultrasound guidance I took 3 passes with a 22-gauge needle and plated these on glass slides. Under ultrasound guidance I took 1 more and placed that for an Afirma testing. Sterile dressings were applied and the patient tolerated the procedure well. UNIVERSAL PROTOCOL / SAFETY CHECKLIST Procedure to be Performed: Ultrasound Guided Fine Needle Aspiration Thyroid left Sign In: A Moment of CARE was completed. Personnel directly involved with the procedure wore the appropriate PPE (Personal Protective Equipment). No special equipment needed. Patient/Surrogate Stated/Verified: PATIENT VERIFIED(optional for EMERGENT procedures): Patient name, Date of , Relevant allergies, and The intended procedure Time Out Communication: Intended patient and procedure match the source documents. Consent documented and matches the intended procedure. Relevant labs, photos, and/or imaging studies have been reviewed. Correct side/site marked and visible. Medications required for procedure verified. No fire risk assessment and interventions applicable. No implant(s) inserted. Sign Out: SIGN OUT (optional for EMERGENT procedures): All specimen containers correctly labeled. No instruments, equipment or retained foreign bodies applicable. Nafisa Wasserman LPN documented in this encounter [facility] 03-19-2023 Instructions Nafisa Wasserman LPN - 03/19/2023 3:10 PM EST The following instructions are important for you related to your office visit today with the [facility] General Surgeons. Instructions After THYROID FINE NEEDLE ASPIRATION Please do not take aspirin or other blood thinners for the next few days. If you have bleeding from the needle site, hold pressure with a clean gauze. If the bleeding continues, contact our office immediately. I recommend taking Advil or Tylenol for the discomfort. An ice pack may improve your discomfort to the area. Contact our office immediately if you have any questions or concerns @ [phone]. Please make an appointment to follow up in one week with your physician and thank you for choosing the [facility]. If you note any additional difficulties, questions, or concerns, you should contact our office immediately @ [phone] and ask to be transferred to the General Surgery department. documented in this encounter [facility] 02-28-2023 Note HNO ID: [id number] Author: CLEMENT SAWYER MD Service: ? Author Type: Physician Type: Progress Notes Filed: 02/28/2023 11:05 Note Text: HISTORY AND PHYSICAL [place] 1940 REFERRING PHYSICIAN: Fabiola Araujo APRN.C* [...] COLONOSCOPY FLX DX W/COLLJ SPEC WHEN PFRMD [id number] Colonoscopy COLONOSCOPY FLX DX W/COLLJ SPEC WHEN PFRMD 08/04/2013 Colonoscopy COLSC FLX W/RMVL OF TUMOR POLYP LESION SNARE TQ 12/17/07 EGD [id number] PAST SURGICAL HISTORY OF thyroidectomy, partial Current [...] entered by the nurse and reviewed by me Nursing Notes: Rowan Price LPN 02/28/2023 10:36 [...] anemia, denies b (more content not included)... [facility] 02-16-2023 Note HNO ID: [id number] Author: FABIOLA ARAUJO APRN.SOIL TECHNOLOGIST Service: ? Author Type: Nurse Practitioner Type: [...] COLONOSCOPY FLX DX W/COLLJ SPEC WHEN PFRMD [id number] Colonoscopy COLONOSCOPY FLX DX W/COLLJ SPEC WHEN PFRMD 08/04/2013 Colonoscopy COLSC FLX W/RMVL OF TUMOR POLYP LESION SNARE TQ 12/17/07 EGD [id number] PAST SURGICAL HISTORY OF thyroidectomy, partial ALLERGIES [...] office notes to Dr. Warren's office and [facility] so they are up -to-date with [...] as needed for worsening/no improvement. Fabiola Araujo APRN.SOIL TECHNOLOGIST [facility] 02-02-2023 Note HNO ID: [id number] Author: Fabiola Araujo APRN.SOIL TECHNOLOGIST Service: ? Author Type: Nurse Practitioner Type: [...] COLONOSCOPY FLX DX W/COLLJ SPEC WHEN PFRMD [id number] Colonoscopy COLONOSCOPY FLX DX W/COLLJ SPEC WHEN PFRMD 08/04/2013 Colonoscopy COLSC FLX W/RMVL OF TUMOR POLYP LESION SNARE TQ 12/17/07 EGD [id number] PAST SURGICAL HISTORY OF thyroidectomy, partial ALLERGIES [...] as needed for worsening/no improvement. Fabiola Araujo APRN.[facility] 02-01-2023 Note HNO ID: [id number] Author: Nya Boykin RDMS Service: ? Author Type: Private Investigator Surveillance Type: Progress Notes Filed: 02/01/2023 10:25 AM [...] Boykin RDMS February 01, 2023 10:25 AM [facility] 01-29-2023 Note HNO ID: [id number] Author: Fabiola Araujo APRN.SOIL TECHNOLOGIST Service: ? Author Type: Nurse Practitioner Type: Progress Notes Filed: 01/29/2023 5:36 PM Note Text: This is a 82 year old male who presents today with: Patient presents with: Hospital F/U: [facility] dc'd 01/24/23 HISTORY OF PRESENT ILLNESS: [place] is a 82 year old male. Patient presents with: Hospital F/U: [facility] dc'd 01/24/23 Pt presents today for hospital [...] on 01/24/2023. He presents today with a [id number]. Refers that he previously was on metoprolol and synthroid. Per the [id number], he stopped these after having some hallucinations [...] COLONOSCOPY FLX DX W/COLLJ SPEC WHEN PFRMD [id number] Colonoscopy COLONOSCOPY FLX DX W/COLLJ SPEC WHEN PFRMD 08/04/2013 Colonoscopy COLSC FLX W/RMVL OF TUMOR POLYP LESION SNARE TQ 12/17/07 EGD [id number] PAST SURGICAL HISTORY OF thyroidectomy, partial ALLERGIES [...] facility-administered medications fo (more content not included)... [facility] 11-24-2022 Note HNO ID: [id number] Author: Ricci Lozano MD Service: ? Author Type: Physician Type: Progress Notes Filed: 11/24/2022 12:36 PM Note Text: Patient presents with: Hypertension HPI: Patient presents today for office visit for follow up. Still not taking any medications. Daughter in law didn't have time to get him to lab this week can take him today after visit. Saw [facility] and was to have cataract surgery with [...] COLONOSCOPY FLX DX W/COLLJ SPEC WHEN PFRMD [id number] Colonoscopy COLONOSCOPY FLX DX W/COLLJ SPEC WHEN PFRMD 08/04/2013 Colonoscopy COLSC FLX W/RMVL OF TUMOR POLYP LESION SNARE TQ 12/17/07 EGD [id number] PAST SURGICAL HISTORY OF thyroidectomy, partial FAMILY [...] with CKD (chronic kidney disease) stage III ([facility]) - ICD9: 403.10, 585.3, ICD10: I12.9, N18.30 (primary diagnosis) - Controlled - Continue current medications - BASIC METABOLIC PNL 2. Chronic obstructive pulmonary disease, unspecified COPD type ([facility]) - ICD9: 496, ICD10: J44.9 - [...] unspecified whether stage 3a or 3b CKD ([facility]) - ICD9: 250.40, 585.3, ICD10: E11.22, N18.30 - follow labs. Watch diet. - HGB A1C 7. Need for influenza vaccination - ICD9: V04.81, ICD10: Z23 - INFLUENZA VACCINE, PRS (more content not included)... [facility] 11-24-2022 Instructions Ricci Lozano MD - 11/24/2022 10:24 AM EDT You should not be driving any more. This is from Dr Lozano. documented in this encounter [facility] 11-24-2022 History of Presen t illness Narrative Patient presents with: Hypertension HPI: Patient presents today for office visit for follow up. Still not taking any medications. Daughter in law didn't have time to get him to lab this week can take him today after visit. Saw [facility] and was to have cataract surgery with [...] COLONOSCOPY FLX DX W/COLLJ SPEC WHEN PFRMD [id number] Colonoscopy COLONOSCOPY FLX DX W/COLLJ SPEC WHEN PFRMD 08/04/2013 Colonoscopy COLSC FLX W/RMVL OF TUMOR POLYP LESION SNARE TQ 12/17/07 EGD [id number] PAST SURGICAL HISTORY OF thyroidectomy, partial FAMILY [...] obstructive pulmonary disease, unspecified COPD type (HCC) - ICD9: 496, ICD10: J44.9 - stable. [...] Lozano MD A1c documented in this encounter [facility] 06-02-2022 Note HNO ID: [id number] Author: Grace Richardson RT(R) Service: Nuclear Medicine Author Type: Technologist Type: [...] 02, 2022 TIME: 8:48 AM PAGER/CONTACT #: [facility] 06-02-2022 History of Presen t illness [...] 08:18 PATIENT DISCHARGED TO: Ambulatory patient, left ID department area. A Diagnostic radioactive procedure has taken place, with no further precautions necessary other than routine body substance precautions. More information regarding radiation safety can be found using this link: [email or web address] SIGNATURE: KEEGAN Weeks) PATIENT NAME: [place] DATE: June 02, 2022 TIME: 8:48 AM PAGER/CONTACT #: documented in this encounter [facility] 05-17-2022 Miscellaneous Notes Pts daughter in law called and is notified of providers results and instructions. She voices understanding. Pt put through to scheduling to set up Whole body bone scan. Rosenda Snowden RN Labs are stable, except his bone alk phos is up. Recheck bone scan if he will allow it to make sure bones are ok. documented in this encounter [facility] 05-12-2022 Note HNO ID: [id number] Author: Ricci Lozano MD Service: ? Author Type: Physician Type: Progress Notes Filed: 05/12/2022 3:46 PM Note Text: Patient presents with: Follow Up HPI: Patient presents today for office visit for follow up. Overall not feeling good. Feels tired most days. Per [id number] his sleep pattern is off. He states [...] Abs Lymph 1.00 - 4.00 k/uL 2.05 [place]owndes% % 9.4 Abs [place] <0.87 k/uL 0.67 Eosin% % 8.1 Abs [...] COLONOSCOPY FLX DX W/COLLJ SPEC WHEN PFRMD [id number] Colonoscopy COLONOSCOPY FLX DX W/COLLJ SPEC WHEN PFRMD 08/04/2013 Colonoscopy COLSC FLX W/RMVL OF TUMOR POLYP LESION SNARE TQ 12/17/07 EGD [id number] PAST SURGICAL HISTORY OF thyroidectomy, partial FAMILY [...] deformities, edema, skin (more content not included)... [facility] 05-12-2022 History of Presen t illness Narrative Patient presents with: Follow Up HPI: Patient presents today for office visit for follow up. Overall not feeling good. Feels tired most days. Per [id number] his sleep pattern is off. He states [...] Abs Lymph 1.00 - 4.00 k/uL 2.05 [place]% % 9.4 Abs [place] <0.87 k/uL 0.67 Eosin% % 8.1 Abs [...] COLONOSCOPY FLX DX W/COLLJ SPEC WHEN PFRMD [id number] Colonoscopy COLONOSCOPY FLX DX W/COLLJ SPEC WHEN PFRMD 08/04/2013 Colonoscopy COLSC FLX W/RMVL OF TUMOR POLYP LESION SNARE TQ 12/17/07 EGD [id number] PAST SURGICAL HISTORY OF thyroidectomy, partial FAMILY [...] obstructive pulmonary disease, unspecified COPD type (HCC) - ICD9: 496, ICD10: J44.9 6. Essential [...] Ricci Lozano MD documented in this encounter [facility] documented in this encounter [facility]10-[facility]-2022 Miscellaneous Notes* Telephone Encounter - Faith Alexis [...] PCP. Nuvia He LPN [facility] History of Present illness Narrative* Nuvia He [...] PCP. Nuvia He LPN [facility] Instructions* Patient Instructions* Ricci Lozano MD - 10/10/2021 3:58 PM EDT [place] has agreed, with Dr. Lozano, to get labs and bp check in one month Ricci Lozano MD [facility] History of Present illness Narrative* Ricci Lozano [...] COLONOSCOPY FLX DX W/COLLJ SPEC WHEN PFRMD [id number] Colonoscopy COLONOSCOPY FLX DX W/COLLJ SPEC WHEN PFRMD 08/04/2013 Colonoscopy COLSC FLX W/RMVL OF TUMOR POLYP LESION SNARE TQ 12/17/07 EGD [id number] PAST SURGICAL HISTORY OF thyroidectomy, partial FAMILY [...] six months and prn. [facility] of Past illness Narrative* Problem Noted Date Resolved Date H/O colonoscopy 06/19/2017 05/12/2022 Overview: 2013 Dr. 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 Ureña, sigmoid diverticulosis, surveillance 10 2023 Hyperglycemia 12/18/2016 01/02/2018 Essential hypertension 02/01/200711/24 Neoplasm of uncertain behavior of skin 07/20/2006 02/01/2007 PAIN NECK 09/25/2005 12/17/2015 Essential hypertension, benign 02/01/2007 Malignant neoplasm of thymus , heart, and mediastinum 09/16/2007 documented as of this encounter (statuses as of 03/20/2023) [facility] History of Past illness Narrative* Problem Noted Date Resolved Date Hyperglycemia 12/18/2016 01/02/2018 Neoplasm of uncertain behavior of skin 7 02/01/2007 PAIN NECK 09/25/2005 12/17/2015 Essential hypertension, benign 1 04/04/2006 Malignant neoplasm of thymus, heart, 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 documented as of this encounter (statuses as of 10/10/2021) [facility] History of Past illness Narrative* Problem Noted Date Resolved Date Hyperglycemia 12/18/2016 01/02/2018 Neoplasm of uncertain behavior of skin 7 02/01/2007 PAIN NECK 09/25/2005 12/17/2015 Essential hypertension, benign 1 04/04/2006 Malignant neoplasm of thymus, heart, 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 documented as of this encounter (statuses as of 11/10/2021) [facility] History of Past illness Narrative* Problem Noted Date Resolved Date Hyperglycemia 12/18/2016 01/02/2018 Neoplasm of uncertain behavior of skin 7 02/01/2007 PAIN NECK 09/25/2005 12/17/2015 Essential hypertension, benign 1 04/04/2006 Malignant neoplasm of thymus, heart, 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 documented as of this encounter (statuses as of 11/14/2021) [facility] Diagnosis Essential hypertension- Primary Unspecified essential hypertension Gastroesophageal reflux disease, unspecified whether esophagitis present 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) Hypothyroidism, unspecified type Stage 3 chronic kidney disease, unspecified whether stage 3a or 3b CKD (HCC) [facility] Diagnosis Essential hypertension- Primary Unspecified essential hypertension [facility] Diagnosis Elevated alkaline phosphatase level- Primary Other nonspecific abnormal serum enzyme levels [facility]* Diagnosis Benign hypertension with CKD (chronic [...] inoculation against influenza [facility] Diagnosis Thyroid nodule- Primary Nontoxic uninodular goiter documented in this encounter [facility] for referral (narrative)* Diagnostic Procedure Only (Routine) - Authorized Specialty Diagnoses / Procedures Referred By Contac t Referred To Contact MOLECULAR & FUNCTIONAL IMAGING Diagnoses Elevated alkaline phosphatase level Procedures NM BONE WHOLE BODY BONE &/JOINT IMAGING WHOLE BODY Blake, Ricci J, MD [address] [place] [address] Molecular & Functional Imaging [address] [place] [id number] Referral ID Status Reason Start Date Expiration Date Visits Requested Visits Authorized [id number] Authorized Auto-Generat ed Referral 05/17/2022 06/16/2023 1 1 [facility] Summary Purpose Family History No Family History [...] or prosecute any alcohol or drug abuse patient.[facility] the event this information is protected by the Federal Confidentiality of Alcohol and Drug Abuse Patient Records regulations: The Federal rules restrict any use of the information to criminally investigate or prosecute any alcohol or drug abuse patient.[facility] event this information is protected by the Federal Confidentiality of Alcohol and Drug Abuse Patient Records regulations: The Federal rules restrict any use of the information to criminally investigate or prosecute any alcohol or drug abuse patient.[facility] event this information is protected by the Federal Confidentiality of Alcohol and Drug Abuse Patient Records regulations: The Federal rules restrict any use of the information to criminally investigate or prosecute any alcohol or drug abuse patient.[facility] event this information is protected by the Federal Confidentiality of Alcohol and Drug Abuse Patient Records regulations: The Federal rules restrict any use of the information to criminally investigate or prosecute any alcohol or drug abuse patient.[facility] event this information is protected by the Federal Confidentiality of Alcohol and Drug Abuse Patient Records regulations: The Federal rules restrict any use of the information to criminally investigate or prosecute any alcohol or drug abuse patient.[facility] event this information is protected by the Federal Confidentiality of Alcohol and Drug Abuse Patient Records regulations: The Federal rules restrict any use of the information to criminally investigate or prosecute any alcohol or drug abuse patient.[facility] event this information is protected by the Federal Confidentiality of Alcohol and Drug Abuse Patient Records regulations: The Federal rules restrict any use of the information to criminally investigate or prosecute any alcohol or drug abuse patient.[facility] Reason for Visit (unrecogniz ed section and content) Reason Comments Blood Pressure Check Reason Comments Follow Up Reason Comments Results Reason Onset Date Comments Hypertension Immunizations 11/24/2022 Flu vaccination Reason Comments Radiology NM Care Teams (unrecognized sec tion and content) Child Health Associate Relationship Specialty Start Date End Date Ricci Lozano MD [address] [place] [address] PCP - General Family Medicine 10/16/12 Child Health Associate Relationship Specialty Start Date End Date Ricci Lozano MD [address] [place] [address] PCP - General Family Medicine 10/16/12 Child Health Associate Relationship Specialty Start Date End Date Ricci Lozano MD [address] [place] [address] PCP - General Family Medicine 10/16/12 Child Health Associate Relationship Specialty Start Date End Date Ricci Lozano MD [address] [place] [address] PCP - General Family Medicine 10/16/12 Child Health Associate Relationship Specialty Start Date End Date Ricci Lozano MD [address] [place] [address] PCP - General Family Medicine 10/16/12 Child Health Associate Relationship Specialty Start Date End Date Ricci Lozano MD [address] [place] [address] PCP - General Family Medicine 10/16/12 (unrecognized [...] BE BASED ON THE PRIMARY CLINICAL RECORDS. [facility] [employer] [facility]. provides no warranty or guarantee of the accuracy or completeness of information in this document.
== END | disposition home or self-care (01) ==
LOC: CVS 13:50
PROVIDERS: PCP Family Medicine; Referring Provider Physician Assistant Medical; Visit Provider Physician Assistant Medical
DX: I25.10 Atherosclerotic heart disease of native coronary artery without angina pectoris (principal)
CPT/HCPCS: 93306; Q9957; A4216; C8929

== ENCOUNTER → 2023-06-30 | Outpatient (CLI) | payer MEDICARE, SELFPAY ==
--- NOTE | 2023-06-30 07:48 | CT_ITS ---
INDICATION: Lung Nodule follow up EXAMINATION: CT CHEST WITHOUT CONTRAST - CT Chest W/O Contrast Injection TECHNIQUE: Helically acquired images were obtained of the chest. A radiation dose optimization technique was used for this scan. IV Contrast dosage and agent: None. COMPARISON: 03/08/2023 FINDINGS: Status post median sternotomy.. LUNGS, PLEURA AND LARGE AIRWAYS: No change in 1.5 cm spiculated noncalcified nodule in the medial superior segment the right lower lobe lungs on image 45 and correlation with PET CT scan or tissue sampling is recommended. Previously described nodule in the posterior right middle lobe has resolved. Moderate bilateral pleural effusions with bibasilar atelectasis. No pneumothorax. THYROID: Enlarged heterogeneous left lobe of the thyroid gland. Suspect right lobectomy. HEART AND PERICARDIUM: Heart size is normal. No pericardial effusion. CORONARY ARTERIES: Coronary artery calcification is seen. VESSELS: Thoracic aorta is not dilated. MEDIASTINUM AND LEONCIO: No mediastinal or hilar adenopathy. Esophagus is unremarkable. No hiatal hernia. UPPER ABDOMEN: No acute pathology. BONES: No suspicious lytic or blastic abnormality. CT/Chest without Contrast IMPRESSION: 1.5 cm spiculated right lower lobe nodule and correlation with PET CT scan or tissue sampling is recommended. Moderate bilateral pleural effusions with bibasilar atelectasis. Electronically Signed: Lance Brasher MD at 0:38 EDT ,
== END | disposition home or self-care (01) ==
PROVIDERS: PCP Family Medicine; Referring Provider Internal Medicine Critical Care Medicine; Visit Provider Internal Medicine Critical Care Medicine
DX: R91.1 Solitary pulmonary nodule (principal)
CPT/HCPCS: 71250

== ENCOUNTER → 2023-07-31 | Outpatient (CLI) | payer MEDICARE, SELFPAY ==
--- NOTE | 2023-07-31 09:00 | PET_ITS ---
EXAMINATION: FDG PET/CT ? INDICATIONS: 83-year-old male with a history of pulmonary nodularity. ? COMPARISON EXAMINATION: CT of the chest dated 06/30/2023. TECHNIQUE: Following the intravenous administration of 13.64 mCi of F-18 deoxyglucose via the right hand, multiplanar image acquisitions of the head, neck, chest, abdomen and pelvis to the level of the midthigh, obtained at one-hour post radiopharmaceutical administration contemporaneously interpreted with the current CT of the chest, abdomen and pelvis dated 07/31/[address] of the chest dated 06/30/2023 via coregistration reveal: ? SERUM GLUCOSE LEVEL:? 62 mg/dL? HEIGHT:?? 63 inches WEIGHT:?? 131 pounds ? FINDINGS: ? HEAD/NECK:? There is no evidence of abnormal increased glucose metabolism in the pharyngeal mucosal space, parapharyngeal space, oropharynx, bilateral-lateral and anterior neck, hypopharynx and distribution of the larynx. ? The visualized portion of the cerebral cortical-subcortical structures demonstrate symmetric and preserved glucose metabolism. ? CHEST:? There is no quantitative scintigraphic evidence of abnormal increased glucose metabolism within the context of the bilateral hemithorax pulmonary parenchyma, right and left hemithorax at the pleural interface, mediastinal structures, and left-right thoracic perihilum. Facilitated FDG concentration is noted in the descending thoracic aorta commensurate with activated leukocytes associated with atherosclerotic plaque formation.? The left ventricular myocardium visualization is consistent with the fed state. ? CT of the chest demonstrates the following anatomic characteristics: Parenchymal changes noted in the right lower and right upper lung field medially demonstrate no evidence of quantitatively significant increased FDG uptake. Atherosclerotic calcification is defined in the thoracic aorta without evidence of dilatation, aneurysm formation. Mediastinal and bilateral axillary soft tissue densities, subcentimeter in presentation, are ametabolic. Coronary artery calcification is observed. There is evidence of prior median sternotomy. A small left hemithorax pleural effusion is nonglucose avid. ? ABDOMEN/PELVIS:? Normal physiologic distribution of the radiopharmaceutical is identified in the hepatic and splenic parenchyma, both renal units, urinary bladder, and visualized intestinal tract. ? CT of the abdomen and pelvis is remarkable for the following: Atherosclerotic calcification is defined in the abdominal aorta without evidence of dilatation, aneurysm formation. Pelvic arterial calcification is observed. Cyst formation is defined in the left kidney. Subcentimeter inguinal soft tissue densities are apparent in the bilateral inguinal regions. Dystrophic calcification is subtly apparent within the prostate gland. ? SKELETAL:? There is no evidence of quantitatively significant enhanced glucose metabolism on meticulous inspection of the appendicular and axial skeletal structures. ? Degenerative changes defined in the thoracic and lumbar spine demonstrate no evidence of increased glucose metabolism. There are no sclerotic, mixed sclerotic-lytic, or primarily lytic changes defined in the axial skeletal structures with evidence of increased FDG uptake. ? PET/PET/CT Tumor Base -Thigh Init IMPRESSION: 1. NEGATIVE EXAMINATION. There is no definitive quantitative scintigraphic evidence of viable neoplasm. 2. Meticulous attention paid to the right hemithorax, both right upper and right lower lobes, demonstrates no evidence of quantitatively significant increased FDG uptake to correlate with parenchymal changes on CT of the thorax dated 06/30/2023. 3. Anatomic stability may be ensured with repeat FDG-PET CT of the right hemithorax parenchyma in 3-6 months if clinically indicated. (Melany, Seminars in Thoracic and Cardiovascular surgery, 14:292, 2002). Electronic Signature Lance Velásquez D.O. Accurate Quantification of SUVs for this report are calculated using the exclusive [employer]. (U.S. Patent No. [phone] [phone] 983 B2 [phone] [place] patent [phone]). Standardization and correction of the FDG SUV metric via [employer]QUAN technology allow for vendor non-specific objective quantitative examination comparison and optimization of the sensitivity and specificity of the FDG PET-CT examination. . [email or web address] Electronically Signed: Lanec Velásquez DO at 8:10 EDT ,
== END | disposition home or self-care (01) ==
PROVIDERS: PCP Family Medicine; Referring Provider Nurse Practitioner Acute Care; Visit Provider Nurse Practitioner Acute Care
DX: R91.1 Solitary pulmonary nodule (principal)
CPT/HCPCS: 78815; A9552

== ENCOUNTER → 2024-01-22 | Outpatient (CLI) | payer MEDICARE, SELFPAY ==
--- NOTE | 2024-01-22 07:00 | PET_ITS ---
EXAMINATION: FDG-PET/CT ? INDICATIONS: 83-year-old male with a history of pulmonary nodularity. ? COMPARISON EXAMINATION: FDG-PET CT study dated 07/31/2023. ? INDEX LESION SIZE SUV INTERPRETATION NEW Right lower lung field, right lower lobe ? 1.4 max Quantitative criteria for viable neoplasm are not fulfilled, sequential radiologic investigation recommended ? NEW Bilateral thoracic perihilum ? 2.9 max Quantitative criteria for viable neoplasm are not fulfilled ? TECHNIQUE: Following the intravenous administration of 13.82 mCi of F-18 deoxyglucose via the right hand, multiplanar image acquisitions of the head, neck, chest, abdomen and pelvis to the level of the midthigh, obtained at one-hour post radiopharmaceutical administration contemporaneously interpreted with the current CT of the chest, abdomen and pelvis dated and 01/22/2024 prior FDG-PET CT study dated 07/31/2023 via coregistration reveal: ? SERUM GLUCOSE LEVEL:? 89 mg/dL? HEIGHT:?? 62 inches WEIGHT:?? 132 pounds ? FINDINGS: ? HEAD/NECK:? There is no evidence of abnormal increased glucose metabolism in the pharyngeal mucosal space, parapharyngeal space, oropharynx, bilateral-lateral and anterior neck, hypopharynx and distribution of the larynx. ? The visualized portion of the cerebral cortical-subcortical structures demonstrate symmetric and preserved glucose metabolism. ? CHEST:? Facilitated uptake is noted in the right upper posterior lung zone, superior segment of the right lower lobe. The current calculated standard uptake value is 1.4. Newly identified increased FDG uptake is defined in the bilateral thoracic perihilum. The calculated standard uptake value is 2.9.? The left ventricular myocardium visualization is consistent with the fed state. ? CT of the chest demonstrates the following anatomic characteristics. The visualized bilateral hemithorax upper lobe pleural effusions demonstrate no evidence of increased glucose uptake. On review of CT of the chest, there is no definitive interval change compared to the study dated 07/31/2023. ? ABDOMEN/PELVIS:? Normal physiologic distribution of the radiopharmaceutical is identified in the hepatic and splenic parenchyma, both renal units, urinary bladder, and visualized intestinal tract. ? CT of the abdomen and pelvis is remarkable for the following: On review of CT of the abdomen/pelvis, there is no definitive interval change compared to the study dated 07/31/2023. ? SKELETAL:? There is no evidence of quantitatively significant enhanced glucose metabolism on meticulous inspection of the appendicular and axial skeletal structures. ? Degenerative changes defined in the thoracic and lumbar spine demonstrate no evidence of increased glucose metabolism. There are no sclerotic, mixed sclerotic-lytic, or primarily lytic changes defined in the axial skeletal structures with evidence of increased FDG uptake. ? PET/PET/CT Tumor Base -Thigh Init IMPRESSION: 1. NEGATIVE EXAMINATION. There is no definitive quantitative scintigraphic evidence of recurrent-metastatic viable neoplasm. 2. Increased tracer uptake newly defined in the right mid posterior lung zone, right lower lobe does not fulfill quantitative criteria for viable neoplasm. (Federico et al, Journal of Nuclear Medicine, 32:1, 1990). 3. Anatomic stability may be ensured with repeat FDG-PET CT of the thorax right lower lung field hypermetabolic focus in 3-6 months if clinically indicated. (Melany, Seminars in Thoracic and Cardiovascular surgery, 14:292, 2002). 4. Enhanced FDG concentration manifest in the bilateral thoracic perihilum does not fulfill quantitative criteria for neoplastic transformation. 5. Overall, compared to the prior FDG-PET CT study dated 07/31/2023, there is continued absence of defined viable neoplastic disease. Electronic Signature Lance Velásquez D.O. Accurate Quantification of SUVs for this report are calculated using the exclusive [employer]. (U.S. Patent No. [phone] [phone] 983 B2 [place] [phone] [place] patent [phone]). Standardization and correction of the FDG SUV metric via ACCUQUAN technology allow for vendor non-specific objective quantitative examination comparison and optimization of the sensitivity and specificity of the FDG PET-CT examination. [email or web address] Electronically Signed: Lance Velásquez DO at 22:52 EST ,
== END | disposition home or self-care (01) ==
PROVIDERS: PCP Family Medicine; Referring Provider Nurse Practitioner Acute Care; Visit Provider Nurse Practitioner Acute Care
DX: R91.8 Other nonspecific abnormal finding of lung field (principal)
CPT/HCPCS: 78815; A9552